=== PATIENT | female | born 1970 | race Caucasian/White ===

== ENCOUNTER → 2016-11-01 | Outpatient (CLI) | payer BC ==
[~2016-11-01] MED LIST: ADAL40KI SQ; CMD10 PO; CPR500 PO; MULT-506 PO; PRED10TA PO; WARF5TAB7 PO
[2016-11-01 13:21] LABS: BASO ABS # 0.04 K/uL (0-0.2); COMPLETE YES; EOS % 2.5 %; HEMATOCRIT 38.6 % (37-47); IG% 0.7 %; LYMPH % 40.2 %; LYMPH ABS # 1.62 K/uL (1.2-3.4); MEAN CELL VOLUME 92.6 fL (80-100); MEAN CORPUSCULAR HEMOGLOBIN 31.7 pg (25-34); MEAN CORPUSCULAR HGB CONC 34.2 g/dl (32-36); MEAN PLATELET VOLUME 10.7 fL (7.4-10.4); MONO % 14.4 %; NEUT % 41.2 %; PLATELET COUNT 254 K/uL (130-400); RED BLOOD COUNT 4.17 M/uL (4.2-5.4); WHITE BLOOD COUNT 4.03 K/uL (4.8-10.8)
[2016-11-01 14:27] LABS: ALT/SGPT 28 U/L (12-78); AST/SGOT 20 U/L (15-37); BLOOD UREA NITROGEN 12 mg/dl (7-18); CALCIUM 8.8 mg/dl (8.5-10.1); CARBON DIOXIDE 28 mmol/L (21-32); CHLORIDE 107 mmol/L (98-107); CREATININE 0.74 mg/dl (0.60-1.20); GLUCOSE 83 mg/dl (70-99); POTASSIUM 4.6 mmol/L (3.5-5.1); SODIUM 141 mmol/L (136-145)
[2016-11-01 14:30] LABS: ALB/GLOB RATIO 1.1 (0.9-2); ALKALINE PHOSPHATASE 49 U/L (45-117); C-REACTIVE PROTEIN < 0.29 mg/dl (0-0.29)
[2016-11-01 14:32] LABS: CHOLESTEROL/HDL RATIO 3.1
== END | disposition home or self-care (01) ==
LOC: C.LABMFLN 09:08
PROVIDERS: ATTEND Family Medicine
DX: D68.2 Hereditary deficiency of other clotting factors (principal); K50.019 Crohn's disease of small intestine with unspecified complications; G43.909 Migraine, unspecified, not intractable, without status migrainosus

== ENCOUNTER → 2016-11-02 | Day surgery (SDC) | payer BC ==
[2016-10-26 11:14] VITALS: BMI 22.0
[~2016-11-02] VITALS: Ht 177.8 cm; Wt 70.5 kg
[~2016-11-02] MED LIST changes: +LIDOCAINE HCL 2% 2 ML VIAL (20MG/ML) ONE; +PROPOFOL IV EMULSION 10 MG/ML 20 ML VIAL IV ONE; +SODIUM CHLORIDE 0.9% 500ML 500 ML IV ONE
[2016-11-02 11:48] VITALS: Ht 177.8 cm; Wt 70.5 kg
--- NOTE | 2016-11-02 12:57 | Endo History and Physical ---
History & Physical Date of Service: Nov 02, 2016. Chief Complaint: Crohns disease Referring Physician: Dr. Miller History of Present Illness 46 yo CF who presents for colonoscopy secondary to Crohn's Disease. Past Medical History Blood Dyscrasias, Thrombophlebitis Past Surgical History Hx Cardiac Surgery: No Hx Internal Defibrillator: No Hx Pacemaker: No Hx Abdominal Surgery: Yes ([facility]) Hx of Implantable Prosthesis: No Hx Post-Op Nausea and Vomiting: No Hx Cancer Surgery: No Hx Thoracic Surgery: No Hx Orthopedic: No Hx Urinary Tract Surgery: No Family History Colon CA, Polyp Social History Smoking Status: Current Every Day Smoker Hx Substance Use: No Hx Alcohol Use: Yes (OCCASSIONALLY) Allergies Coded Allergies: Latex2 -Systemic Allergic Response (Verified Allergy, Severe, HIVES, ) Adhesives (Verified Allergy, Unknown, BANDAIDS-RED BLISTERS, 10/26/16) Penicillins (Verified Allergy, Unknown, UNKNOWN, 10/26/16) Codeine (Verified Adverse Reaction, Unknown, NAUSEA AND VOMITING, 10/26/16) Current Medications Reported Home Medications Medications Dose Route/Sig Max Daily Dose Days Date Category Dose Instructions Humira Pen (Adalimumab) 40 Mg/0.8 Ml Kit 1 Dose SQ EVERY 2 WEEKS 07/27/16 Reported Jantoven (Warfarin Sodium) 5 Mg Tab 15 Mg PO 5XWK 07/27/16 Reported EXCEPT SUNDAYS AND MONDAY Multivitamin (Multivitamins) Tab 1 Tab PO QAM 02/16/15 Reported ONCE A DAY Coumadin (Warfarin Sod) 10 Mg Tab 10 Mg PO MONDAY AND Monday11/03/14 Reported Vital Signs Weight (Kilograms): 70.45 Height (Feet): 5 Height (Inches): 10 Date Time Temp Pulse Resp B/P Pulse Ox O2 Delivery O2 Flow Rate FiO2 11/02/16 12:02 36.9 75 20 123/69 100 Room Air Physical Exam General Appearance: WD/WN, no apparent distress Respiratory/Chest: Auscultation: breath sounds normal Cardiovascular: Heart Auscultation: RRR Abdomen: Bowel Sounds: normal Inspection & Palpation: soft, non-distended, no tenderness, guarding & rebound Assessment and Plan Assessment: 46 yo CF who presents for colonoscopy secondary to Crohn's Disease. Plan: Proceed with colonoscopy.
--- NOTE | 2016-11-02 13:29 | GI REPORT ---
Procedure Date: 11/02/2016 1:08 PM Procedure: Colonoscopy Indications: Follow-up of Crohn's disease of the small bowel Medicines: Monitored Anesthesia Care Complications: No immediate complications. Estimated Blood Loss: Estimated blood loss: none. Procedure: Pre-Anesthesia Assessment: - Prior to the procedure, a History and Physical was performed, and patient medications and allergies were reviewed. The patient's tolerance of previous anesthesia was also reviewed. The risks and benefits of the procedure and the sedation options and risks were discussed with the patient. All questions were answered, and informed consent was obtained. Prior Anticoagulants: The patient last took aspirin 8 days and Lovenox (enoxaparin) 1 day prior to the procedure. ASA Grade Assessment: II - A patient with mild systemic disease. After reviewing the risks and benefits, the patient was deemed in satisfactory condition to undergo the procedure. After I obtained informed consent, the scope was passed under direct vision. Throughout the procedure, the patient's blood pressure, pulse, and oxygen saturations were monitored continuously. The scope was introduced through the anus and advanced to the terminal ileum. The colonoscopy was performed without difficulty. The patient tolerated the procedure well. The quality of the bowel preparation was good. The terminal ileum, ileocecal valve, appendiceal orifice, and rectum were photographed. Findings: Localized inflammation, mild in severity and characterized by erosions was found in the terminal ileum. Biopsies were taken with a cold forceps for histology. Several random biopsies were obtained with cold forceps for histology in the entire colon. Impression: - Crohn's disease with ileitis. Biopsied. - Several random biopsies were obtained in the entire colon. Recommendation: - Resume previous diet. - Continue present medications. - Repeat colonoscopy for surveillance based on pathology results. - Return to primary care physician as previously scheduled. Steve Chang DO 11/02/2016 1:29:32 PM This report has been signed electronically. Note Initiated On: 11/02/2016 1:08 PM I attest to the content of the Intraoperative Record and orders documented therein, exceptions below
--- NOTE | 2016-11-02 13:30 | Discharge Instructions ---
Endoscopy Patient Instructions Date / Procedure(s) Performed Nov 02, 2016. Colonoscopy Allergy Information Coded Allergies: Latex2 -Systemic Allergic Response (Verified Allergy, Severe, HIVES, ) Adhesives (Verified Allergy, Unknown, BANDAIDS-RED BLISTERS, 10/26/16) Penicillins (Verified Allergy, Unknown, UNKNOWN, 10/26/16) Codeine (Verified Adverse Reaction, Unknown, NAUSEA AND VOMITING, 10/26/16) Discharge Date / Findings Nov 02, 2016. Crohn's ileitis s/p biopsies Random colon biopsies Medication Instructions OK to resume all medications today as prescribed Reported Home Medications Medications Dose Route/Sig Max Daily Dose Days Date Category Dose Instructions Humira Pen (Adalimumab) 40 Mg/0.8 Ml Kit 1 Dose SQ EVERY 2 WEEKS 07/27/16 Reported Jantoven (Warfarin Sodium) 5 Mg Tab 15 Mg PO 5XWK 07/27/16 Reported EXCEPT SUNDAYS AND MONDAY Multivitamin (Multivitamins) Tab 1 Tab PO QAM 02/16/15 Reported ONCE A DAY Coumadin (Warfarin Sod) 10 Mg Tab 10 Mg PO MONDAY AND Monday11/03/14 Reported Provider Instructions Activity Restrictions - No exercising or heavy lifting for 24 hours. - Do not drink alcohol the day of the procedure. - Do not drive a car or operate machinery until the day after the procedure. - Do not make any important decisions or sign important papers in 24 hours after the procedure. Following Day: - Return to full activity which may include returning to work/school. Diet Start your diet with liquids and light foods (jello, soup, juice, toast). Then eat your usual diet if not nauseated. Treatment For Common After Affects For mild abdominal pain, bloating, or excessive gas: - Rest - Eat lightly - Lie on right side Follow-Up Information Follow-up with Dr. Miller as scheduled Anesthesia Information What You Should Know You have had a procedure that required some medicine to reduce anxiety and discomfort. This treatment is called moderate sedation. After receiving the treatment, you may be sleepy, but you will be able to breathe on your own. The effects of the treatment may last for several hours. Follow these instructions along with Activity/Diet recommendations noted above: * Do NOT do anything where dizziness or clumsiness would be dangerous. * Rest quietly at home today, then you can be up and about tomorrow. * Have a responsible person stay with you the rest of today. * You may have had an I.V. today. If so, you may take the dressing off later today. Recommendations Call your doctor if: * Trouble breathing * Continuous vomiting for more than 24 hours * Temperature above 101 degrees * Severe abdominal pain or bloating * Pain not relieved by pain medicine ordered * There is increased drainage or redness from any incision * A large amount of rectal bleeding greater than 2-3 tablespoons. (If you had a polyp/s removed or have hemorrhoids, a small amount of blood - from the rectum is to be expected.) * You have any unanswered questions or concerns. IN THE EVENT OF A SERIOUS EMERGENCY, GO TO THE NEAREST EMERGENCY ROOM Your discharge instructions were prepared by provider Steve Chang. Patient Instructions Signature Page Calista Olvera Patient (or Guardian) Signature/Date: I have read and understand the instructions given to me by my caregivers. Caregiver/RN/Doctor Signature/Date: The above-named patient and/or guardian has received patient instructions on this date. + Original Patient Signature Page (only) stays with chart. Please make copy for patient.
[2016-11-02 13:52] VITALS: BP 123/78; PULSE 54; O2SAT 100
--- NOTE | 2016-11-02 15:21 | Anesthesiology Progress Note ---
Anesthesia Post Op Note Date & Time Nov 02, 2016 at 15:21 Vital Signs Pain Intensity: 0 Vital Signs Past 12 Hours Date Time Temp Pulse Resp B/P Pulse Ox O2 Delivery O2 Flow Rate FiO2 11/02/16 13:52 54 20 123/78 100 Room Air 11/02/16 13:42 55 20 114/75 100 Room Air 11/02/16 13:23 72 20 93/68 100 Room Air 11/02/16 12:02 36.9 75 20 123/69 100 Room Air Notes Mental Status: alert / awake / arousable, participated in evaluation Pt Amnestic to Procedure: Yes Nausea / Vomiting: adequately controlled Pain: adequately controlled Airway Patency, RR, SpO2: stable & adequate BP & HR: stable & adequate Hydration State: stable & adequate Anesthetic Complications: no major complications apparent
== END | disposition home or self-care (01) ==
LOC: C.GI 11:11
PROVIDERS: ATTEND Internal Medicine
DX: K50.00 Crohn's disease of small intestine without complications (principal); D75.9 Disease of blood and blood-forming organs, unspecified; I80.9 Phlebitis and thrombophlebitis of unspecified site; Z80.0 Family history of malignant neoplasm of digestive organs; Z79.01 Long term (current) use of anticoagulants; F17.210 Nicotine dependence, cigarettes, uncomplicated; Z88.0 Allergy status to penicillin; Z88.5 Allergy status to narcotic agent

== ENCOUNTER 2017-01-13 21:44 | Observation (INO) | payer BC ==
[~2017-01-13] VITALS: Ht 175.3 cm; Wt 72.4 kg
[~2017-01-13 21:44] MED LIST changes: -CPR500 PO; -LIDOCAINE HCL 2% 2 ML VIAL (20MG/ML) ONE; -PRED10TA PO; -PROPOFOL IV EMULSION 10 MG/ML 20 ML VIAL IV ONE; -SODIUM CHLORIDE 0.9% 500ML 500 ML IV ONE
[2017-01-13] MEDS ORDERED: ONDANSETRON INJ 2 MG/ML 2 ML VIAL IV STA (22:41)
[2017-01-13] MEDS ORDERED: MoRPHine SULFATE 4 MG/ML 1 ML CARP\\VIAL IV STA (22:41)
[2017-01-13 22:51] LABS: BASO % 0.4 %; BASO ABS # 0.04 K/uL (0-0.2); COMPLETE YES; EOS % 0.6 %; HEMATOCRIT 39.3 % (37-47); IG% 0.2 %; LYMPH % 23.1 %; LYMPH ABS # 2.34 K/uL (1.2-3.4); MEAN CELL VOLUME 90.8 fL (80-100); MEAN CORPUSCULAR HEMOGLOBIN 32.3 pg (25-34); MEAN CORPUSCULAR HGB CONC 35.6 g/dl (32-36); MEAN PLATELET VOLUME 10.5 fL (7.4-10.4); MONO % 6.3 %; NEUT % 69.4 %; PLATELET COUNT 225 K/uL (130-400); RED BLOOD COUNT 4.33 M/uL (4.2-5.4); WHITE BLOOD COUNT 10.11 K/uL (4.8-10.8)
[2017-01-13 23:05] LABS: INR 1.7 (0.9-1.1); PARTIAL THROMBOPLASTIN RATIO 1.1; PROTHROMBIN TIME (PATIENT) 18.7 SECONDS (9.0-12.0)
[2017-01-13 23:08] LABS: BUN/CREATININE RATIO 20.1 (10-20); CALCIUM 8.5 mg/dl (8.5-10.1); CREATININE 0.85 mg/dl (0.60-1.20); POTASSIUM 3.7 mmol/L (3.5-5.1)
[2017-01-13 23:16] LABS: URINE APPEARANCE CLEAR (CLEAR); URINE BILIRUBIN NEG (NEG); URINE COLOR DK YELLOW; URINE EPITHELIAL CELL AUTO >30 /lpf (0-5); URINE NITRITE NEG (NEG); URINE SPECIFIC GRAVITY 1.034 (1.000-1.030); UROBILINOGEN NEG (NEG)
[2017-01-13 23:20] LABS: MANUAL MICROSCOPIC REQUIRED? NO; REVIEW REQ? NO
[2017-01-14] MEDS ORDERED: MoRPHine SULFATE 4 MG/ML 1 ML CARP\\VIAL IV STA (00:15)
[2017-01-14] MEDS ORDERED: ONDANSETRON INJ 2 MG/ML 2 ML VIAL IV STA (00:15)
--- NOTE | 2017-01-14 01:16 | DIAGNOSTIC IMAGING REPORT ---
CT SCAN OF THE ABDOMEN AND PELVIS WITH IV CONTRAST CLINICAL HISTORY: Generalized abdominal pain. Reported history of Crohn's disease. COMPARISON STUDY: Abdominal CT dated 07/27/2016. TECHNIQUE: Following the IV administration of 93 cc of Optiray 320, CT scan of the abdomen and pelvis is performed from the lung bases to the proximal femora. Images are reviewed in the axial, sagittal, and coronal planes. IV contrast was administered without complication. Automated dose control exposure was utilized. CT DOSE: 333.13 mGy.cm FINDINGS: Lung bases: The heart is normal in size and without pericardial effusion. The lung bases are clear. Liver: The contrast-enhanced liver is normal in size, contour, and attenuation. There is mild central intrahepatic biliary ductal dilatation. The hepatic veins and portal veins are patent. Mild periportal edema is noted. Gallbladder: Surgically absent noting clips in the gallbladder fossa. Spleen: Normal in size and attenuation. Pancreas: Unremarkable. Adrenal glands: Unremarkable. Kidneys: The contrast enhanced kidneys are normal in size and without hydronephrosis. The kidneys enhance symmetrically. Abdominal vasculature: The abdominal aorta is normal in course and caliber. 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 There are numerous distended pelvic veins, likely representing venous collaterals. Bowel: There is wall thickening and edema seen involving the the distal/terminal ileum which extends at least 15 cm in length. The upstream small bowel is distended and fecalized, with loops measuring up to 3.6 cm. No additional thick walled bowel loops are identified. There is no evidence of fistula or abscess. The appendix is well-visualized and normal. Peritoneum: There is a small volume of free fluid in the pelvis. No intraperitoneal free air is seen. Lymphadenopathy: None. Pelvic viscera: The bladder, uterus, and adnexa are normal as visualized. Skeletal structures: No lytic or blastic lesions are seen. IMPRESSION: 1. The distal/terminal ileum is thick-walled and edematous comments extends at least 15 cm in length. Given the reported clinical history this likely represents active Crohn's disease. 2. The upstream small bowel appears distended and fluid-filled/fecalized. This may represent mild functional obstruction secondary to mucosal edema or possibly stricture. Ileus could also have this appearance. Clinical correlation will be required. No high-grade bowel obstruction is seen. 3. A small volume of free fluid in the pelvis is nonspecific and may be reactive. 4. There is no evidence of abscess or intraperitoneal free air. 5. Hepatic periportal edema is noted. 6. 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 7. Additional findings as above. Electronically signed by: Zeke Foy M.D. 01/14/2017 1:14 AM Dictated Date/Time: 01/14/2017 1:05 AM
[2017-01-14] MEDS ORDERED: SODIUM CHLORIDE 0.9% 1000ML 1,000 ML IV STA (01:25)
[2017-01-14] MEDS ORDERED: WARFARIN SOD 5 MG TAB PO ONE ×2 (01:30→14:15)
--- NOTE | 2017-01-14 01:38 | EMERGENCY ROOM VISIT NOTE ---
History Report prepared by Jaden: Clau Russo Under the Supervision of: Dr. Charan Asencio M.D. First contact with patient: 22:33 Chief Complaint: CHEST PAIN Stated Complaint: CHEST PAIN L ARM FUNNY POSSIBLE CROHNS History of Present Illness The patient is a 47 year old female who presents to the Emergency Room with complaints of persistent chest pain starting 1.5 hours ago. The pain is located in her lower chest and on both sides and wraps around to her back. She describes the pain as sharp. She also has started having upper abdominal pain which feels like her Crohn's. She gets chest pain and anxiety with her Crohn's exacerbations sometimes. She feels it is due to anxiety. She currently feels anxious. She is on Humira for Crohn's. Her bowel movements have been fairly normal recently but she states that she does not normally get abnormal bowel movements with her exacerbations. She has been feeling cold and clammy at times. She denies any urinary symptoms, vomiting, melena, hematochezia, increased leg swelling or pain. She has a blood clot in her right leg. She is currently on Coumadin. She admits to smoking. She has a family history of heart disease. Her father had a heart attack at 45 years old. She denies any other medical problems. Source of History: patient Onset: 1.5 hours ago Position: chest Quality: sharp Timing: other (persistent) Associated Symptoms: + chills, + abdominal pain, No vomiting, No melena, No hematochezia, No urinary symptoms Note: Pt reports feeling anxious. Pt denies increased leg swelling or pain. Review of Systems See HPI for pertinent positives & negatives. A total of 10 systems reviewed and were otherwise negative. Past Medical & Surgical Medical Problems: (1) Biliary and gallbladder disorder (2) Hx-Venous Thrombosis&Embolism (3) Partial small bowel obstruction (4) Tobacco Use Disorder (5) Venous Insufficiency Nos Family History Cancer Diabetes mellitus Heart disease Hypertension Social History Smoking Status: Current Every Day Smoker Alcohol Use: occasionally Drug Use: none Marital Status: Occupation Status: unemployed Current/Historical Medications Scheduled Adalimumab (Humira Pen), 1 DOSE SQ EVERY 2 WEEKS Multivitamin (Multivitamin), 1 TAB PO QAM Warfarin Sod (Coumadin), 10 MG PO MWF Warfarin Sod (Jantoven), 15 MG PO 4XWK Allergies Coded Allergies: Latex2 -Systemic Allergic Response (Verified Allergy, Severe, HIVES, ) Adhesives (Verified Allergy, Unknown, BANDAIDS-RED BLISTERS, 01/13/17) Penicillins (Verified Allergy, Unknown, UNKNOWN, 01/13/17) Codeine (Verified Adverse Reaction, Unknown, NAUSEA AND VOMITING, 01/13/17) Physical Exam Vital Signs Date Time Temp Pulse Resp B/P (MAP) Pulse Ox O2 Delivery O2 Flow Rate FiO2 01/14/17 01:31 65 01/14/17 01:06 58 14 130/85 100 Room Air 01/14/17 00:31 60 18 101/75 96 Room Air 01/13/17 22:20 53 01/13/17 21:46 36.4 59 18 114/68 100 Room Air Physical Exam Constitutional: Vital signs reviewed. Eyes: Pupils are equal round reactive to light. Conjunctiva are noninjected. ENT: Pharynx is clear without erythema or exudate. Mucous membranes are moist. Neck supple without meningeal signs. Respiratory: Clear to auscultation bilaterally. Breath sounds are equal bilaterally. Cardiovascular: Bradycardic rate, 56 and regular rhythm. No rubs or gallops. GI: Soft, nondistended with diffuse abdominal tenderness. No guarding. Bowel sounds are present. Musculoskeletal: Swelling to the right leg with some scarring. Integumentary: No cyanosis. Neurological: The patient is awake and alert. No focal deficits. Psychiatric: Anxious. Medical Decision & Procedures ER Provider Diagnostic Interpretation: Radiology results as stated below per my review and the radiologist's interpretation: CT SCAN OF THE ABDOMEN AND PELVIS WITH IV CONTRAST CLINICAL HISTORY: Generalized abdominal pain. Reported history of Crohn's disease. COMPARISON STUDY: Abdominal CT dated 07/27/2016. TECHNIQUE: Following the IV administration of 93 cc of Optiray 320, CT scan of the abdomen and pelvis is performed from the lung bases to the proximal femora. Images are reviewed in the axial, sagittal, and coronal planes. IV contrast was administered without complication. Automated dose control exposure was utilized. CT DOSE: 333.13 mGy.cm FINDINGS: Lung bases: The heart is normal in size and without pericardial effusion. The lung bases are clear. Liver: The contrast-enhanced liver is normal in size, contour, and attenuation. There is mild central intrahepatic biliary ductal dilatation. The hepatic veins and portal veins are patent. Mild periportal edema is noted. Gallbladder: Surgically absent noting clips in the gallbladder fossa. Spleen: Normal in size and attenuation. Pancreas: Unremarkable. Adrenal glands: Unremarkable. Kidneys: The contrast enhanced kidneys are normal in size and without hydronephrosis. The kidneys enhance symmetrically. Abdominal vasculature: The abdominal aorta is normal in course and caliber. 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 There are numerous distended pelvic veins, likely representing venous collaterals. Bowel: There is wall thickening and edema seen involving the the distal/terminal ileum which extends at least 15 cm in length. The upstream small bowel is distended and fecalized, with loops measuring up to 3.6 cm. No additional thick walled bowel loops are identified. There is no evidence of fistula or abscess. The appendix is well-visualized and normal. Peritoneum: There is a small volume of free fluid in the pelvis. No intraperitoneal free air is seen. Lymphadenopathy: None. Pelvic viscera: The bladder, uterus, and adnexa are normal as visualized. Skeletal structures: No lytic or blastic lesions are seen. IMPRESSION: 1. The distal/terminal ileum is thick-walled and edematous comments extends at least 15 cm in length. Given the reported clinical history this likely represents active Crohn's disease. 2. The upstream small bowel appears distended and fluid-filled/fecalized. This may represent mild functional obstruction secondary to mucosal edema or possibly stricture. Ileus could also have this appearance. Clinical correlation will be required. No high-grade bowel obstruction is seen. 3. A small volume of free fluid in the pelvis is nonspecific and may be reactive. 4. There is no evidence of abscess or intraperitoneal free air. 5. Hepatic periportal edema is noted. 6. 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 7. Additional findings as above. Electronically signed by: Zeke Foy M.D. 01/14/2017 1:14 AM Dictated Date/Time: 01/14/2017 1:05 AM Laboratory Results 01/13/17 22:35 Red Blood Count 4.33, Mean Corpuscular Volume 90.8, Mean Corpuscular Hemoglobin 32.3, Mean Corpuscular Hemoglobin Concent 35.6, Mean Platelet Volume 10.5, Neutrophils (%) (Auto) 69.4, Lymphocytes (%) (Auto) 23.1, Monocytes (%) (Auto) 6.3, Eosinophils (%) (Auto) 0.6, Basophils (%) (Auto) 0.4, Neutrophils # (Auto) 7.01, Lymphocytes # (Auto) 2.34, Monocytes # (Auto) 0.64, Eosinophils # (Auto) 0.06, Basophils # (Auto) 0.04 01/13/17 22:35 Test 01/13/17 22:35 01/13/17 22:50 01/14/17 00:30 White Blood Count 10.11 K/uL (4.8-10.8) Red Blood Count 4.33 M/uL (4.2-5.4) Hemoglobin 14.0 g/dL (12.0-16.0) Hematocrit 39.3 % (37-47) Mean Corpuscular Volume 90.8 fL (80-100) Mean Corpuscular Hemoglobin 32.3 pg (25-34) Mean Corpuscular Hemoglobin Concent 35.6 g/dl (32-36) Platelet Count 225 K/uL (130-400) Mean Platelet Volume 10.5 fL (7.4-10.4) Neutrophils (%) (Auto) 69.4 % Lymphocytes (%) (Auto) 23.1 % Monocytes (%) (Auto) 6.3 % Eosinophils (%) (Auto) 0.6 % Basophils (%) (Auto) 0.4 % Neutrophils # (Auto) 7.01 K/uL (1.4-6.5) Lymphocytes # (Auto) 2.34 K/uL (1.2-3.4) Monocytes # (Auto) 0.64 K/uL (0.11-0.59) Eosinophils # (Auto) 0.06 K/uL (0-0.5) Basophils # (Auto) 0.04 K/uL (0-0.2) RDW Standard Deviation 44.8 fL (36.4-46.3) RDW Coefficient of Variation 13.4 % (11.5-14.5) Immature Granulocyte % (Auto) 0.2 % Immature Granulocyte # (Auto) 0.02 K/uL (0.00-0.02) Prothrombin Time 18.7 SECONDS (9.0-12.0) Prothromb Time International Ratio 1.7 (0.9-1.1) Activated Partial Thromboplast Time 28.9 SECONDS (21.0-31.0) Partial Thromboplastin Ratio 1.1 D-Dimer 250 ug/L FEU (0-500) Anion Gap 9.0 mmol/L (3-11) Est Creatinine Clear Calc Drug Dose 87.4 ml/min Estimated GFR () 95.9 Estimated GFR (Non- 82.8 BUN/Creatinine Ratio 20.1 (10-20) Calcium Level 8.5 mg/dl (8.5-10.1) Total Bilirubin 0.6 mg/dl (0.2-1) Direct Bilirubin 0.2 mg/dl (0-0.2) Aspartate Amino Transf (AST/SGOT) 33 U/L (15-37) Alanine Aminotransferase (ALT/SGPT) 29 U/L (12-78) Alkaline Phosphatase 55 U/L (45-117) Total Protein 7.3 gm/dl (6.4-8.2) Albumin 3.8 gm/dl (3.4-5.0) Lipase 164 U/L (73-393) Urine Color DK YELLOW Urine Appearance CLEAR (CLEAR) Urine pH 7.0 (4.5-7.5) Urine Specific [place] 1.034 (1.000-1.030) Urine Protein NEG (NEG) Urine Glucose (UA) NEG (NEG) Urine Ketones TRACE (NEG) Urine Occult Blood NEG (NEG) Urine Nitrite NEG (NEG) Urine Bilirubin NEG (NEG) Urine Urobilinogen NEG (NEG) Urine Leukocyte Esterase TRACE (NEG) Urine WBC (Auto) 1-5 /hpf (0-5) Urine RBC (Auto) 0-4 /hpf (0-4) Urine Hyaline Casts (Auto) 1-5 /lpf (0-5) Urine Epithelial Cells (Auto) >30 /lpf (0-5) Urine Bacteria (Auto) NEG (NEG) Urine Test NEG (NEG) Bedside Troponin I 0.000 ng/ml (0-0.045) Laboratory results as reviewed by me. Medications Administered Medications (Trade) Dose Ordered Sig/Hussain Route Start Time Stop Time Status Last Admin Dose Admin Morphine Sulfate (MoRPHine SULFATE INJ) 4 mg ONE STAT IV 01/13/17 22:41 01/13/17 22:42 DC 01/13/17 23:18 4 MG Ondansetron HCl (Zofran Inj) 4 mg NOW STAT IV 01/13/17 22:41 01/13/17 22:42 DC 01/13/17 23:18 4 MG Morphine Sulfate (MoRPHine SULFATE INJ) 4 mg NOW STAT IV 01/14/17 00:15 01/14/17 00:16 DC 01/14/17 00:36 4 MG Ondansetron HCl (Zofran Inj) 4 mg NOW STAT IV 01/14/17 00:15 01/14/17 00:16 DC 01/14/17 00:36 4 MG ECG Indication: chest pain Rate (beats per minute): 56 Rhythm: sinus bradycardia Findings: no acute ischemic change, no ectopy ED Course 2236: The patient was evaluated in room C5. A complete history and physical exam was performed. 2241: Zofran Inj 4 mg IV, Morphine Sulfate 4 mg IV. 2330: I reevaluated the patient. Her chest discomfort has resolved, but she still has abdominal pain. I discussed her INR and her blood work with her. 0010: I reevaluated the patient. She has recurrent abdominal pain. 0015: Zofran Inj 4 mg IV, Morphine Sulfate 4 mg IV. 0123: I discussed the patient's case with Dr. Gu, [facility] [place]. The patient will be evaluated for further management. 0128: I reevaluated the patient. I discussed the results and treatment plan with her. She verbalized understanding and agreement. She will be evaluated for further management. Medical Decision This is a 47-year-old female who presents with chest pain and abdominal pain. Differential diagnosis includes anxiety, pleurisy, AK, pulmonary embolism, Crohn 's exacerbation, obstruction. I did perform a limited focused review of portions of the patient's old chart on the electronic medical record. The patient has had no recent pertinent visits to this hospital. Medication Reconciliation: I attest that I have personally reviewed the patient' s current medication list. Blood Pressure Screening: Patient was found to have normal blood pressure on screening and does not require follow-up. I did evaluate the patient as noted above. IV access was established. The patient was placed on a continuous library monitor. I did order and personally review the patient's 12-lead EKG as described above. I did order and review the patient's blood work as noted in the electronic medical record. Troponin 2 is negative. Her white blood cell count is not elevated. Her INR is subtherapeutic but her d-dimer is negative. I did order a CT of the abdomen and pelvis. I did review the images myself as well as the radiology report as described above. She does appear to have signs of Crohn's disease with some possible functional obstruction. She did receive multiple doses of Zofran and morphine IV. I also gave her normal saline IV. I did discuss the test results with the patient. She will be hospitalized for further care and evaluation. I did discuss the case with the hospitalist and casework supervisor. Consults Time Called: 0120 Consulting Physician: Dr. Gu [facility] [place] - hospitalist Returned Call: [phone] I discussed the patient's case with him. The patient will be evaluated for further management. Impression Primary Impression: Exacerbation of Crohn's disease Additional Impressions: Subtherapeutic international normalized ratio (INR) Acute chest pain Scribe Attestation The scribe's documentation has been prepared under my direct and personally reviewed by me in its entirety. I confirm that the note above accurately reflects all work, treatment, procedures, and medical decision making performed by me. Departure Information Dispostion Being Evaluated By Hospitalist Referrals Zeke Miller M.D. (PCP) Patient Instructions My [facility] Problem Qualifiers Primary Impression: Exacerbation of Crohn's disease Digestive disease complication type: unspecified complication Qualified Codes : K50.919 - Crohn's disease, unspecified, with unspecified complications
[2017-01-14] MEDS ORDERED: CIPROFLOXACIN 400MG / 200ML D5W IV STA (02:18)
[2017-01-14] MEDS ORDERED: MoRPHine SULFATE 2 MG/ML CARP IV PRN (02:30)
[2017-01-14] MEDS ORDERED: ACETAMINOPHEN IV 100 ML IV PRN (02:30)
[2017-01-14] MEDS ORDERED: MoRPHine SULFATE 4 MG/ML 1 ML CARP\\VIAL IV PRN (02:30)
[2017-01-14] MEDS ORDERED: ONDANSETRON INJ 2 MG/ML 2 ML VIAL IV PRN (02:30)
[2017-01-14 02:56] VITALS: BP 95/67; PULSE 57; TEMP 36.4; O2SAT 99; Ht 175.3 cm; Wt 72.4 kg
[2017-01-14] MEDS: NSS + 20MEQ KCL 1000ML 1,000 ML IV SCH ×3 (03:17→23:13)
[2017-01-14] MEDS: CIPROFLOXACIN / D5W 400 MG in PREMIXED IN D5W 200 ML IV SCH ×2 (03:17→14:42)
[2017-01-14] MEDS ORDERED: IV FLUIDS COMPLETED PRN (04:00)
[2017-01-14] MEDS: METRONIDAZOLE / NSS 500 MG in PREMIXED NSS 100 ML IV SCH ×2 (04:06→11:23)
--- NOTE | 2017-01-14 04:45 | History and Physical ---
History & Physical Date & Time of Service: Jan 14, 2017 at 04:45 Chief Complaint: Crohn's Exacerbation Primary Care Physician: Zeke Miller M.D. History of Present Illness Source: patient The patient is a 47-year-old female who presents to the emergency department with chest pain that begins in her lower chest and wraps around on both sides toward her back, that began about 1-1/2 hours prior to arrival. She also notes upper abdominal pain that she thinks is related to her Crohn's. She presently feels anxious, and commonly gets this type of chest discomfort when she has a Crohn's exacerbation. Her bowel movements are not uncommonly normal even when she has exacerbation. She has history of blood clots in her right leg for which she is on Coumadin. She does report feeling cold and clammy at times, but has not been lightheaded or dizzy. She presently is on Humira for Crohn's. She has not had any change in dietary habits or in physical activity. She has not had any recent travel or any sick exposures. Past Medical/Surgical History Medical Problems: (1) Biliary and gallbladder disorder Status: Chronic Family History Cancer Diabetes mellitus Heart disease Hypertension Social History Smoking Status: Current Every Day Smoker Smokeless Tobacco Use: Yes Drug Use: none Marital Status: Housing status: lives with family Occupational Status: unemployed Multi-Drug Resistant Organisms History of MDRO: No Allergies Coded Allergies: Latex2 -Systemic Allergic Response (Verified Allergy, Severe, HIVES, ) Adhesives (Verified Allergy, Unknown, BANDAIDS-RED BLISTERS, 01/13/17) Penicillins (Verified Allergy, Unknown, UNKNOWN, 01/13/17) Codeine (Verified Adverse Reaction, Unknown, NAUSEA AND VOMITING, 01/13/17) Home Medications Scheduled Adalimumab (Humira Pen), 1 DOSE SQ EVERY 2 WEEKS Multivitamin (Multivitamin), 1 TAB PO QAM Warfarin Sod (Coumadin), 10 MG PO MWF Warfarin Sod (Jantoven), 15 MG PO 4XWK Review of Systems The patient denies palpitations, cough, lower extremity swelling, vision change , hearing change, sore throat, fevers, chills, sweats, weight change, fatigue, nausea, vomiting, blood in urine or stool, dysuria, urinary frequency or urgency, lightheadedness, dizziness, headache, memory loss, rash, abnormal bruising or bleeding, imbalance, focal or generalized weakness, numbness or tingling in arms or legs, arthralgias or myalgias, night sweats, or allergy symptoms. The review of systems is otherwise negative other than for that already noted above, and at least 10 systems have been reviewed. Physical Exam Vital Signs Date Time Temp Pulse Resp B/P (MAP) Pulse Ox O2 Delivery O2 Flow Rate FiO2 01/14/17 02:56 36.4 57 18 95/67 99 Room Air 01/14/17 02:42 56 16 103/68 98 01/14/17 01:31 65 01/14/17 01:06 58 14 130/85 100 Room Air 01/14/17 00:31 60 18 101/75 96 Room Air 01/13/17 22:20 53 01/13/17 21:46 36.4 59 18 114/68 100 Room Air The patient is awake, well-developed and adequately nourished, alert and oriented 3, normocephalic and atraumatic, lying in bed and in no acute distress. HEENT--PERRL, EOMI, mucous membranes and oropharynx dry. Neck--supple, no JVD or bruits, thyroid normal, trachea midline, no adenopathy. Heart--normal S1 and S2, no extra beats, no murmurs, rubs or gallops. Lungs--clear bilaterally with good air movement, no respiratory distress, no accessory muscle use. Abdomen--normal bowel sounds and soft, tender in epigastric and extending laterally both sides, nondistended, no hernias or masses, no organomegaly. Extremities--no cyanosis, clubbing or edema. There are good distal pulses b/l. Dermatologic--normal skin turgor, normal color, warm and dry, no abnormal lymph nodes, no rash. Neurologic--cranial nerves II through XII grossly intact, motor and sensory examination normal. Rheumatologic--normal range of motion, nontender, muscles and joints. Psychiatric--normal affect. Diagnostics Laboratory Results Results Past 24 Hours Test 01/13/17 22:35 01/13/17 22:46 01/13/17 22:50 01/14/17 00:30 Range/Units White Blood Count 10.11 4.8-10.8 K/uL Red Blood Count 4.33 4.2-5.4 M/uL Hemoglobin 14.0 12.0-16.0 g/dL Hematocrit 39.3 37-47 % Mean Corpuscular Volume 90.8 80-100 fL Mean Corpuscular Hemoglobin 32.3 25-34 pg Mean Corpuscular Hemoglobin Concent 35.6 32-36 g/dl Platelet Count 225 130-400 K/uL Mean Platelet Volume 10.5 7.4-10.4 fL Neutrophils (%) (Auto) 69.4 % Lymphocytes (%) (Auto) 23.1 % Monocytes (%) (Auto) 6.3 % Eosinophils (%) (Auto) 0.6 % Basophils (%) (Auto) 0.4 % Neutrophils # (Auto) 7.01 1.4-6.5 K/uL Lymphocytes # (Auto) 2.34 1.2-3.4 K/uL Monocytes # (Auto) 0.64 0.11-0.59 K/uL Eosinophils # (Auto) 0.06 0-0.5 K/uL Basophils # (Auto) 0.04 0-0.2 K/uL RDW Standard Deviation 44.8 36.4-46.3 fL RDW Coefficient of Variation 13.4 11.5-14.5 % Immature Granulocyte % (Auto) 0.2 % Immature Granulocyte # (Auto) 0.02 0.00-0.02 K/uL Prothrombin Time 18.7 9.0-12.0 SECONDS Prothromb Time International Ratio 1.7 0.9-1.1 Activated Partial Thromboplast Time 28.9 21.0-31.0 SECONDS Partial Thromboplastin Ratio 1.1 D-Dimer 250 0-500 ug/L FEU Sodium Level 141 136-145 mmol/L Potassium Level 3.7 3.5-5.1 mmol/L Chloride Level 108 98-107 mmol/L Carbon Dioxide Level 24 21-32 mmol/L Anion Gap 9.0 3-11 mmol/L Blood Urea Nitrogen 17 7-18 mg/dl Creatinine 0.85 0.60-1.20 mg/dl Est Creatinine Clear Calc Drug Dose 87.4 ml/min Estimated GFR () 95.9 Estimated GFR (Non- 82.8 BUN/Creatinine Ratio 20.1 10-20 Random Glucose 97 70-99 mg/dl Calcium Level 8.5 8.5-10.1 mg/dl Total Bilirubin 0.6 0.2-1 mg/dl Direct Bilirubin 0.2 0-0.2 mg/dl Aspartate Amino Transf (AST/SGOT) 33 15-37 U/L Alanine Aminotransferase (ALT/SGPT) 29 12-78 U/L Alkaline Phosphatase 55 45-117 U/L Total Protein 7.3 6.4-8.2 gm/dl Albumin 3.8 3.4-5.0 gm/dl Lipase 164 73-393 U/L Bedside Troponin I 0.000 0.000 0-0.045 ng/ml Urine Color DK YELLOW Urine Appearance CLEAR CLEAR Urine pH 7.0 4.5-7.5 Urine Specific [place] 1.034 1.000-1.030 Urine Protein NEG NEG Urine Glucose (UA) NEG NEG Urine Ketones TRACE NEG Urine Occult Blood NEG NEG Urine Nitrite NEG NEG Urine Bilirubin NEG NEG Urine Urobilinogen NEG NEG Urine Leukocyte Esterase TRACE NEG Urine WBC (Auto) 1-5 0-5 /hpf Urine RBC (Auto) 0-4 0-4 /hpf Urine Hyaline Casts (Auto) 1-5 0-5 /lpf Urine Epithelial Cells (Auto) >30 0-5 /lpf Urine Bacteria (Auto) NEG NEG Urine Test NEG NEG Diagnostic Radiology Patient Name: JAYDE CHAPPELL Unit Number: [id number] Dictated: 01/14/17104 Transcribed: 01/14/17104 EV Printed Date/Time: [~ rep prt dt]/[~ rep prt tm] [~ rep ct labl] - [~ rep ct ivnm] [facility] [place] [address] Dictated: 01/14/17104 Transcribed: 01/14/17104 EV Printed Date/Time: [~ rep prt dt]/[~ rep prt tm] [~ rep ct labl] - [~ rep ct ivnm] CT SCAN OF THE ABDOMEN AND PELVIS WITH IV CONTRAST CLINICAL HISTORY: Generalized abdominal pain. Reported history of Crohn's disease. COMPARISON STUDY: Abdominal CT dated 07/27/2016. TECHNIQUE: Following the IV administration of 93 cc of Optiray 320, CT scan of the abdomen and pelvis is performed from the lung bases to the proximal femora. Images are reviewed in the axial, sagittal, and coronal planes. IV contrast was administered without complication. Automated dose control exposure was utilized. CT DOSE: 333.13 mGy.cm FINDINGS: Lung bases: The heart is normal in size and without pericardial effusion. The lung bases are clear. Liver: The contrast-enhanced liver is normal in size, contour, and attenuation. There is mild central intrahepatic biliary ductal dilatation. The hepatic veins and portal veins are patent. Mild periportal edema is noted. Gallbladder: Surgically absent noting clips in the gallbladder fossa. Spleen: Normal in size and attenuation. Pancreas: Unremarkable. Adrenal glands: Unremarkable. Kidneys: The contrast enhanced kidneys are normal in size and without hydronephrosis. The kidneys enhance symmetrically. Abdominal vasculature: The abdominal aorta is normal in course and caliber. 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 There are numerous distended pelvic veins, likely representing venous collaterals. Bowel: There is wall thickening and edema seen involving the the distal/terminal ileum which extends at least 15 cm in length. The upstream small bowel is distended and fecalized, with loops measuring up to 3.6 cm. No additional thick walled bowel loops are identified. There is no evidence of fistula or abscess. The appendix is well-visualized and normal. Peritoneum: There is a small volume of free fluid in the pelvis. No intraperitoneal free air is seen. Lymphadenopathy: None. Pelvic viscera: The bladder, uterus, and adnexa are normal as visualized. Skeletal structures: No lytic or blastic lesions are seen. IMPRESSION: 1. The distal/terminal ileum is thick-walled and edematous comments extends at least 15 cm in length. Given the reported clinical history this likely represents active Crohn's disease. 2. The upstream small bowel appears distended and fluid-filled/fecalized. This may represent mild functional obstruction secondary to mucosal edema or possibly stricture. Ileus could also have this appearance. Clinical correlation will be required. No high-grade bowel obstruction is seen. 3. A small volume of free fluid in the pelvis is nonspecific and may be reactive. 4. There is no evidence of abscess or intraperitoneal free air. 5. Hepatic periportal edema is noted. 6. 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 7. Additional findings as above. Electronically signed by: Zeke Foy M.D. 01/14/2017 1:14 AM Dictated Date/Time: 01/14/2017 1:05 AM The status of this report is Signed. Draft = Not yet reviewed or approved by Radiologist. Signed = Reviewed and approved by Radiologist. <AttendingPhy></AttendingPhy> <FamilyPhy>Zeke Miller M.D.</FamilyPhy> < PrimaryPhy>Zeke Miller M.D.</PrimaryPhy> <UnitNumber>[id number]</UnitNumber> < VisitNumber>[id number]</VisitNumber> <PatientName>JAYDE CHAPPELL</ PatientName> <DateOfBirth>1970</DateOfBirth> <Location>[facility]</Location> < ServiceDate>01/13/17</ServiceDate> <MNE>ESINDI</MNE> <OrderingPhy>Charan Asencio MD</OrderingPhy> <OrderingPhyMNE>f rep ord dr de la cruz</OrderingPhyMNE> < DictatingPhyMNE>f rep dict dr de la cruz</DictatingPhyMNE> <CCListMNE>f rep ct jono</ CCListMNE> <AdmittingPhyMNE>f pt admit dr de la cruz</AdmittingPhyMNE> <AttendingPhyMNE >f pt attend dr de la cruz</AttendingPhyMNE> <ConsultingPhyMNE>f pt consult dr de la cruz</ConsultingPhyMNE> <FamilyPhyMNE>f pt fam dr de la cruz</FamilyPhyMNE> <OtherPhyMNE>f pt other dr de la cruz</OtherPhyMNE> < PrimaryPhyMNE>f pt prim care dr de la cruz</PrimaryPhyMNE> <ReferringPhyMNE>f pt referring dr de la cruz</ReferringPhyMNE> Impression Assessment and Plan Crohn's exacerbation--the patient be admitted to the medical floor. She'll be placed on IV fluids, Cipro and Flagyl IV, Zofran IV, morphine IV and Protonix IV. She reports that she has not and on steroids during flareups in the past. CT scan does show a 15 cm long area suggested ileitis associated with her Crohn' s. 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 Present INR is 1.7. Continue warfarin as outpatient and follow serial INRs. Level of Care Med/Surg Advanced Directives Existing Advance Directive: No Existing Living Will: No Existing Power of Marketing Operations Manager: No Resuscitation Status FULL RESUSCITATION VTE Prophylaxis VTE Risk Assessment Done? Y/N: Yes Risk Level: Moderate Given or contraindicated: Warfarin (Coumadin)
[2017-01-14 07:50] VITALS: BP 92/62; PULSE 60; TEMP 36.5; O2SAT 97
[2017-01-14] MEDS ORDERED: PANTOprazole INJ 40 MG in SYRINGE 0 ML IV SCH (11:00)
--- NOTE | 2017-01-14 13:47 | Medical Consult ---
Consultation Note Date of Service Jan 14, 2017. Consultation Note Reason for consult: Flare of Crohn's disease Source: patient, med records HPI: 47 yo F with PMH sig for ileal Crohn's, maintained on Humira, with imaging in July showing mild inflammation in ileum and last surveillance cscopy in October showing only mild inflammation in ileum, with reported therapeutic Humira levels earlier this year, now admit with symptoms of Crohn's flare. Pt reports fairly abrupt onset of diffuse abdominal pain, nausea, abdominal distention, and subjective fever that began yesterday morning. She did not have vomiting. She had a normal bowel movement yesterday morning. She also reports chest discomfort, which she associated with a Crohn's flare and states that she thinks is related to anxiety. On admission, she underwent CT, which showed marked ileal thickening and fecalization of distal small bowel. She was treated only with antibiotics overnight; she was not given steroids. This morning, she has no abd distention, she is tolerating small sips of clears, she has mild pain, and she has not had flatus. Of note, she also has a h/o DVT and IVC thrombosis (secondary to ??) for which she is maintained on coumadin. Past Medical/Surgical History Medical Problems: (1) Biliary and gallbladder disorder Status: Chronic Family History Cancer Diabetes mellitus Heart disease Hypertension Social History Smoking Status: Current Every Day Smoker Smokeless Tobacco Use: Yes Drug Use: none Marital Status: Housing status: lives with family Occupational Status: unemployed Multi-Drug Resistant Organisms History of MDRO: No Allergies Coded Allergies: Latex2 -Systemic Allergic Response (Verified Allergy, Severe, HIVES, ) Adhesives (Verified Allergy, Unknown, BANDAIDS-RED BLISTERS, 01/13/17) Penicillins (Verified Allergy, Unknown, UNKNOWN, 01/13/17) Codeine (Verified Adverse Reaction, Unknown, NAUSEA AND VOMITING, 01/13/17) Home Medications Scheduled Adalimumab (Humira Pen), 1 DOSE SQ EVERY 2 WEEKS Multivitamin (Multivitamin), 1 TAB PO QAM Warfarin Sod (Coumadin), 10 MG PO MWF Warfarin Sod (Jantoven), 15 MG PO 4XWK Review of Systems The patient denies palpitations, cough, lower extremity swelling, vision change , hearing change, sore throat, fevers, chills, sweats, weight change, fatigue, nausea, vomiting, blood in urine or stool, dysuria, urinary frequency or urgency, lightheadedness, dizziness, headache, memory loss, rash, abnormal bruising or bleeding, imbalance, focal or generalized weakness, numbness or tingling in arms or legs, arthralgias or myalgias, night sweats, or allergy symptoms. The review of systems is otherwise negative other than for that already noted above, and at least 10 systems have been reviewed. Physical Ex - H&P Physical Exam Vital Signs Date Time Temp Pulse Resp B/P (MAP) Pulse Ox O2 Delivery O2 Flow Rate FiO2 01/14/17 08:00 Room Air 01/14/17 07:50 36.5 60 18 92/62 (72) 97 Room Air 01/14/17 02:56 36.4 57 18 95/67 99 Room Air 01/14/17 02:42 56 16 103/68 98 01/14/17 01:31 65 01/14/17 01:06 58 14 130/85 100 Room Air 01/14/17 00:31 60 18 101/75 96 Room Air 01/13/17 22:20 53 01/13/17 21:46 36.4 59 18 114/68 100 Room Air Appears comfortable - she is sitting upright in bed, talking on the phone when I enter the room. She has consumed about 1/3rd of her lunch tray. HEENT--PERRL, EOMI, mucous membranes and oropharynx dry. Neck--supple, no JVD or bruits, thyroid normal, trachea midline, no adenopathy. Heart--normal S1 and S2, no extra beats, no murmurs, rubs or gallops. Lungs--clear bilaterally with good air movement, no respiratory distress, no accessory muscle use. Abdomen--normal bowel sounds and soft, tender in epigastric and extending laterally both sides, nondistended, no hernias or masses, no organomegaly. Extremities--no cyanosis, clubbing or edema. There are good distal pulses b/l. Dermatologic--normal skin turgor, normal color, warm and dry, no abnormal lymph nodes, no rash. Neurologic--cranial nerves II through XII grossly intact, motor and sensory examination normal. Rheumatologic--normal range of motion, nontender, muscles and joints. Psychiatric--normal affect. Diagnostics - H&P Diagnostics Laboratory Results Last 24 Hours Test 01/13/17 22:35 01/13/17 22:46 01/13/17 22:50 01/14/17 00:30 White Blood Count 10.11 K/uL Red Blood Count 4.33 M/uL Hemoglobin 14.0 g/dL Hematocrit 39.3 % Mean Corpuscular Volume 90.8 fL Mean Corpuscular Hemoglobin 32.3 pg Mean Corpuscular Hemoglobin Concent 35.6 g/dl Platelet Count 225 K/uL Mean Platelet Volume 10.5 fL Neutrophils (%) (Auto) 69.4 % Lymphocytes (%) (Auto) 23.1 % Monocytes (%) (Auto) 6.3 % Eosinophils (%) (Auto) 0.6 % Basophils (%) (Auto) 0.4 % Neutrophils # (Auto) 7.01 K/uL Lymphocytes # (Auto) 2.34 K/uL Monocytes # (Auto) 0.64 K/uL Eosinophils # (Auto) 0.06 K/uL Basophils # (Auto) 0.04 K/uL RDW Standard Deviation 44.8 fL RDW Coefficient of Variation 13.4 % Immature Granulocyte % (Auto) 0.2 % Immature Granulocyte # (Auto) 0.02 K/uL Prothrombin Time 18.7 SECONDS Prothromb Time International Ratio 1.7 Activated Partial Thromboplast Time 28.9 SECONDS Partial Thromboplastin Ratio 1.1 D-Dimer 250 ug/L FEU Sodium Level 141 mmol/L Potassium Level 3.7 mmol/L Chloride Level 108 mmol/L Carbon Dioxide Level 24 mmol/L Anion Gap 9.0 mmol/L Blood Urea Nitrogen 17 mg/dl Creatinine 0.85 mg/dl Est Creatinine Clear Calc Drug Dose 87.4 ml/min Estimated GFR () 95.9 Estimated GFR (Non- 82.8 BUN/Creatinine Ratio 20.1 Random Glucose 97 mg/dl Calcium Level 8.5 mg/dl Total Bilirubin 0.6 mg/dl Direct Bilirubin 0.2 mg/dl Aspartate Amino Transf (AST/SGOT) 33 U/L Alanine Aminotransferase (ALT/SGPT) 29 U/L Alkaline Phosphatase 55 U/L Total Protein 7.3 gm/dl Albumin 3.8 gm/dl Lipase 164 U/L Bedside Troponin I 0.000 ng/ml 0.000 ng/ml Urine Color DK YELLOW Urine Appearance CLEAR Urine pH 7.0 Urine Specific [place] 1.034 Urine Protein NEG Urine Glucose (UA) NEG Urine Ketones TRACE Urine Occult Blood NEG Urine Nitrite NEG Urine Bilirubin NEG Urine Urobilinogen NEG Urine Leukocyte Esterase TRACE Urine WBC (Auto) 1-5 /hpf Urine RBC (Auto) 0-4 /hpf Urine Hyaline Casts (Auto) 1-5 /lpf Urine Epithelial Cells (Auto) >30 /lpf Urine Bacteria (Auto) NEG Urine Test NEG Results Past [address] SCAN OF THE ABDOMEN AND PELVIS WITH IV CONTRAST CLINICAL HISTORY: Generalized abdominal pain. Reported history of Crohn's disease. COMPARISON STUDY: Abdominal CT dated 07/27/2016. TECHNIQUE: Following the IV administration of 93 cc of Optiray 320, CT scan of the abdomen and pelvis is performed from the lung bases to the proximal femora. Images are reviewed in the axial, sagittal, and coronal planes. IV contrast was administered without complication. Automated dose control exposure was utilized. CT DOSE: 333.13 mGy.cm FINDINGS: Lung bases: The heart is normal in size and without pericardial effusion. The lung bases are clear. Liver: The contrast-enhanced liver is normal in size, contour, and attenuation. There is mild central intrahepatic biliary ductal dilatation. The hepatic veins and portal veins are patent. Mild periportal edema is noted. Gallbladder: Surgically absent noting clips in the gallbladder fossa. Spleen: Normal in size and attenuation. Pancreas: Unremarkable. Adrenal glands: Unremarkable. Kidneys: The contrast enhanced kidneys are normal in size and without hydronephrosis. The kidneys enhance symmetrically. Abdominal vasculature: The abdominal aorta is normal in course and caliber. 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 There are numerous distended pelvic veins, likely representing venous collaterals. Bowel: There is wall thickening and edema seen involving the the distal/terminal ileum which extends at least 15 cm in length. The upstream small bowel is distended and fecalized, with loops measuring up to 3.6 cm. No additional thick walled bowel loops are identified. There is no evidence of fistula or abscess. The appendix is well-visualized and normal. Peritoneum: There is a small volume of free fluid in the pelvis. No intraperitoneal free air is seen. Lymphadenopathy: None. Pelvic viscera: The bladder, uterus, and adnexa are normal as visualized. Skeletal structures: No lytic or blastic lesions are seen. IMPRESSION: 1. The distal/terminal ileum is thick-walled and edematous comments extends at least 15 cm in length. Given the reported clinical history this likely represents active Crohn's disease. 2. The upstream small bowel appears distended and fluid-filled/fecalized. This may represent mild functional obstruction secondary to mucosal edema or possibly stricture. Ileus could also have this appearance. Clinical correlation will be required. No high-grade bowel obstruction is seen. 3. A small volume of free fluid in the pelvis is nonspecific and may be reactive. 4. There is no evidence of abscess or intraperitoneal free air. 5. Hepatic periportal edema is noted. 6. 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 7. Additional findings as above. Impression Assessment and Plan H/o Crohn's ileitis on now admitted with abdominal pain, CT showing marked terminal ileitis - Presumably, she has a Crohn's flare, although the abrupt onset of her symptoms and marked progression of her disease when compared to her cscopy in October is somewhat atypical. She has a h/o IVC thrombosis, and I wonder if it may be possible that her ileitis is related to vascular congestion related to this. - Will check CRP and stool studies. Given her ileitis, would begin steroids - will begin solumedrol 20 q8 hours. Given findings of fecalization on imaging, will continue cipro as adjunct therapy for Crohn's and to treat the possibility of bacterial overgrowth. Diet as tolerated. Will defer the need for MRV, or therapeutic drug monitoring, to primary solution lead, who will resume care on Monday.
[2017-01-14] MEDS ORDERED: ACETAMINOPHEN 500 MG TAB PO PRN (14:00)
--- NOTE | 2017-01-14 14:11 | Progress Note ---
Progress Note Date of Service Jan 14, 2017. Progress Note seen this AM in f/u from early AM admit feeling better already. wonders about PO intake. notes that this felt like prior flare but is getting better faster. discussed care. discussed pending GI consult (had not yet seen at the time i saw her, input now noted and appreciated) ROS otherwise negative except for as above crohn's flare - med management, abx/steroids/pain control. doing better, clear liquids, follow dvt proph - coumadin (sl low - continue coumadin and follow) chronic DVT - coumadin as above (additional dose since INR sl low, although abx likely will have INR rise some too so watch closely)
[2017-01-14] MEDS: METHYLPREDNISOLONE IV 20 MG in SYRINGE 0 ML IV SCH ×2 (14:42→23:10)
[2017-01-14 15:05] VITALS: BP 92/58; PULSE 61; TEMP 37.1; O2SAT 95
[2017-01-14] MEDS ORDERED: WARFARIN SOD 7.5 MG TAB PO SCH (16:00)
[2017-01-14 22:57] VITALS: BP_SYST 102; BP_SYST 92; BP_DIAS 47; BP_DIAS 65; PULSE 64; TEMP 36.8; O2SAT 96
[2017-01-15] MEDS: CIPROFLOXACIN / D5W 400 MG in PREMIXED IN D5W 200 ML IV SCH (03:12)
[2017-01-15] MEDS: METHYLPREDNISOLONE IV 20 MG in SYRINGE 0 ML IV SCH (06:07)
[2017-01-15 06:35] VITALS: BP 98/64; PULSE 54; TEMP 36.5; O2SAT 97
[2017-01-15 07:46] LABS: INR 3.6 (0.9-1.1); PROTHROMBIN TIME (PATIENT) 40.2 SECONDS (9.0-12.0)
[2017-01-15] MEDS ORDERED: PANTOprazole SOD 40 MG TAB PO SCH (08:00)
[2017-01-15] MEDS: NSS + 20MEQ KCL 1000ML 1,000 ML IV SCH (09:51)
[2017-01-15] MEDS ORDERED: PRED10TA PO (10:18)
[2017-01-15] MEDS ORDERED: CPR500 PO ×2 (10:18→10:39)
--- NOTE | 2017-01-15 10:24 | Discharge Instructions ---
Discharge Instructions Date of Service Jan 15, 2017. Admission Reason for Admission: Crohn's Exacerbation Discharge Discharge Diagnosis / Problem: crohn's flare Discharge Goals Goal(s): Decrease discomfort, Diagnostic testing, Therapeutic intervention Activity Recommendations Activity Limitations: resume your previous activity . Instructions / Follow-Up Instructions / Follow-Up crohn's flare -improving -finish out a course of cipro as an antibiotic - GI recommends a 10 day course. your next dose will be in the evening today (01/15/17) -we'll do a tapering course of prednisone, as quickly as you got better, they 'll hopefully be able to go more quickly than the typical 40mg daily followed by a 10mg reduction once a week over a month, but we'll defer to gastroenterology judgement on that - for now take 40mg daily until you see GI this coming week, and they can direct the taper ongoing based on how you're doing (your next dose of steroids will be tomorrow morning, 01/16/17) clotting/coumadin -your INR yesterday was 1.7, today it's 3.6, fortunately even when your INR was low, a lab test called a d-dimer (that doesn't specifically say if you have clots, but does a nice job of assessing the risk of clotting) was normal (250, upper normal is 500) - so while your coumadin has been a bit unwieldy to control , it's not likely that you're having any active clotting events in the here-and- now -have a repeat INR tomorrow as previously scheduled, continue your current dosing of coumadin as guided by Dr Miller -antibiotics can certainly bump your INR higher, so it's quite likely that Dr Miller will need to be checking an INR several times this week Current Hospital Diet Patient's current hospital diet: Low Fiber Diet Discharge Diet Recommended Diet: Low Fiber Diet (until seen by GI this week, then as long as they approve, you can resume your regular diet) Pending Studies Studies pending at discharge: no Laboratory Results Lipid Panel Test 11/01/16 07:30 Range/Units Triglycerides Level 136 0-150 mg/dl Cholesterol Level 179 0-200 mg/dl HDL Cholesterol 57 mg/dl Cholesterol/HDL Ratio 3.1 LDL Cholesterol, Calculated 95 mg/dl Medical Emergencies . Who to Call and When: Medical Emergencies: If at any time you feel your situation is an emergency, please call 911 immediately. . Non-Emergent Contact Non-Emergency issues call your: Primary Care Provider, [employer] [facility] . . "Provider Documentation" section prepared by Alan Roberts. . VTE Core Measure Inpt VTE Proph given/why not?: Warfarin (Coumadin)
[2017-01-15 10:51] VITALS: BP 98/64; PULSE 54; TEMP 36.5; O2SAT 97
--- NOTE | 2017-01-15 16:23 | Discharge Summary ---
Discharge Summary Date of Service Jan 15, 2017. Discharge Summary Admission Date: Jan 14, 2017 at 02:29 Discharge Date: Jan 15, 2017 Discharge Disposition: Home Principal Diagnosis: crohn's flare Procedures: CT SCAN OF THE ABDOMEN AND PELVIS WITH IV CONTRAST CLINICAL HISTORY: Generalized abdominal pain. Reported history of Crohn's disease. COMPARISON STUDY: Abdominal CT dated 07/27/2016. TECHNIQUE: Following the IV administration of 93 cc of Optiray 320, CT scan of the abdomen and pelvis is performed from the lung bases to the proximal femora. Images are reviewed in the axial, sagittal, and coronal planes. IV contrast was administered without complication. Automated dose control exposure was utilized. CT DOSE: 333.13 mGy.cm FINDINGS: Lung bases: The heart is normal in size and without pericardial effusion. The lung bases are clear. Liver: The contrast-enhanced liver is normal in size, contour, and attenuation. There is mild central intrahepatic biliary ductal dilatation. The hepatic veins and portal veins are patent. Mild periportal edema is noted. Gallbladder: Surgically absent noting clips in the gallbladder fossa. Spleen: Normal in size and attenuation. Pancreas: Unremarkable. Adrenal glands: Unremarkable. Kidneys: The contrast enhanced kidneys are normal in size and without hydronephrosis. The kidneys enhance symmetrically. Abdominal vasculature: The abdominal aorta is normal in course and caliber. 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 There are numerous distended pelvic veins, likely representing venous collaterals. Bowel: There is wall thickening and edema seen involving the the distal/terminal ileum which extends at least 15 cm in length. The upstream small bowel is distended and fecalized, with loops measuring up to 3.6 cm. No additional thick walled bowel loops are identified. There is no evidence of fistula or abscess. The appendix is well-visualized and normal. Peritoneum: There is a small volume of free fluid in the pelvis. No intraperitoneal free air is seen. Lymphadenopathy: None. Pelvic viscera: The bladder, uterus, and adnexa are normal as visualized. Skeletal structures: No lytic or blastic lesions are seen. IMPRESSION: 1. The distal/terminal ileum is thick-walled and edematous comments extends at least 15 cm in length. Given the reported clinical history this likely represents active Crohn's disease. 2. The upstream small bowel appears distended and fluid-filled/fecalized. This may represent mild functional obstruction secondary to mucosal edema or possibly stricture. Ileus could also have this appearance. Clinical correlation will be required. No high-grade bowel obstruction is seen. 3. A small volume of free fluid in the pelvis is nonspecific and may be reactive. 4. There is no evidence of abscess or intraperitoneal free air. 5. Hepatic periportal edema is noted. 6. 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 7. Additional findings as above. Electronically signed by: Zeke Foy M.D. 01/14/2017 1:14 AM Dictated Date/Time: 01/14/2017 1:05 AM Last Resulted CBC 01/13/17 22:35 Red Blood Count 4.33, Mean Corpuscular Volume 90.8, Mean Corpuscular Hemoglobin 32.3, Mean Corpuscular Hemoglobin Concent 35.6, Mean Platelet Volume 10.5, Neutrophils (%) (Auto) 69.4, Lymphocytes (%) (Auto) 23.1, Monocytes (%) (Auto) 6.3, Eosinophils (%) (Auto) 0.6, Basophils (%) (Auto) 0.4, Neutrophils # (Auto) 7.01, Lymphocytes # (Auto) 2.34, Monocytes # (Auto) 0.64, Eosinophils # (Auto) 0.06, Basophils # (Auto) 0.04 Last Resulted BMP 01/13/17 22:35 INR 1.7 --> 3.6 Ddimer 250 Medication Reconciliation New Medications: Ciprofloxacin (Ciprofloxacin HCl) 500 Mg Tab 1 TAB PO BID, #18 TAB Prednisone Tab (Prednisone) 10 Mg Tab 10 MG PO UD, #60 TAB 40mg po daily until seen by GI this week, then as directed Continued Medications: Adalimumab (Humira Pen) 40 Mg/0.8 Ml Kit 1 DOSE SQ EVERY 2 WEEKS, #2 Multivitamin (Multivitamin) Tab 1 TAB PO QAM, TAB ONCE A DAY Warfarin Sod (Coumadin) 10 Mg Tab 10 MG PO MWF Warfarin Sod (Jantoven) 5 Mg Tab 15 MG PO 4XWK, TAB Discharge Exam Physical Exam: General Appearance: no apparent distress Eyes: EOMI ENT: hearing grossly normal Neck: trachea midline Respiratory/Chest: no respiratory distress, no accessory muscle use Extremities: normal inspection Neurologic/Psychiatric: block cutter II-XII nml as tested, alert, normal mood/affect Skin: normal color, warm/dry Hospital Course crohn's flare -quickly improved -stable/safe for home -GI consult and recommendations appreciated -cipro x 10 days total -steroid taper - for now 40mg daily then reduce as recommended by GI -to be seen by GI this week discharge to home, f/u GI this week Total Time Spent: Less than 30 minutes This includes examination of the patient, discharge planning, medication reconciliation, and communication with other providers. Discharge Instructions Please refer to the electronic Patient Visit Report (Discharge Instructions) for additional information. Additional Copies To Steve Chang D.O.
[2017-01-16] MEDS ORDERED: WARFARIN SOD 5 MG TAB PO SCH (16:00)
== END 2017-01-15 11:39 | disposition home or self-care (01) ==
LOC: C.EDB 21:45 → C.MS4W 01-14 02:29 → ENRESERV 01-14 02:37
PROVIDERS: ADMIT Hospitalist; ATTEND Family Medicine
DX: K50.90 Crohn's disease, unspecified, without complications (principal); Z86.718 Personal history of other venous thrombosis and embolism; F17.200 Nicotine dependence, unspecified, uncomplicated; Z88.2 Allergy status to sulfonamides; Z79.01 Long term (current) use of anticoagulants; Z91.040 Latex allergy status; Z80.9 Family history of malignant neoplasm, unspecified; Z83.3 Family history of diabetes mellitus; Z82.49 Family history of ischemic heart disease and other diseases of the circulatory system

== ENCOUNTER → 2017-06-26 | Outpatient (CLI) | payer BC ==
[~2017-06-26] MED LIST changes: +CPR500 PO; +PRED10TA PO
[2017-06-26 13:14] LABS: BASO % 0.6 %; BASO ABS # 0.03 K/uL (0-0.2); COMPLETE YES; EOS % 1.4 %; HEMATOCRIT 39.4 % (37-47); IG% 0.2 %; LYMPH % 33.1 %; LYMPH ABS # 1.71 K/uL (1.2-3.4); MEAN CELL VOLUME 94.5 fL (80-100); MEAN CORPUSCULAR HEMOGLOBIN 32.6 pg (25-34); MEAN CORPUSCULAR HGB CONC 34.5 g/dl (32-36); MEAN PLATELET VOLUME 11.3 fL (7.4-10.4); MONO % 8.3 %; NEUT % 56.4 %; PLATELET COUNT 268 K/uL (130-400); RED BLOOD COUNT 4.17 M/uL (4.2-5.4); WHITE BLOOD COUNT 5.17 K/uL (4.8-10.8)
[2017-06-26 13:39] LABS: ALT/SGPT 23 U/L (12-78); AST/SGOT 16 U/L (15-37); BLOOD UREA NITROGEN 11 mg/dl (7-18); BUN/CREATININE RATIO 18.3 (10-20); CALCIUM 8.4 mg/dl (8.5-10.1); CARBON DIOXIDE 27 mmol/L (21-32); CHLORIDE 104 mmol/L (98-107); CREATININE 0.62 mg/dl (0.60-1.20); GLUCOSE 93 mg/dl (70-99); POTASSIUM 4.4 mmol/L (3.5-5.1); SODIUM 138 mmol/L (136-145)
[2017-06-26 13:42] LABS: ALB/GLOB RATIO 0.9 (0.9-2); ALKALINE PHOSPHATASE 57 U/L (45-117); C-REACTIVE PROTEIN < 0.29 mg/dl (0-0.29)
[2017-06-28 15:05] LABS: QUANTIF TB AG-NIL <0.00 IU/ML; QUANTIFERON NIL 0.04 IU/ML
== END | disposition home or self-care (01) ==
LOC: C.LABMFLN 08:23
PROVIDERS: ATTEND Family Medicine
DX: K50.019 Crohn's disease of small intestine with unspecified complications (principal)

== ENCOUNTER 2019-03-28 18:19 | Observation (INO) ==
[2019-03-28] MEDS ORDERED: HYDROmorphone INJ 0.5 MG/0.5 ML SYR IV PRN (18:46)
[2019-03-28] MEDS ORDERED: ONDANSETRON INJ 2 MG/ML 2 ML VIAL IV STA (18:46)
[2019-03-28] MEDS ORDERED: SODIUM CHLORIDE 0.9% 1000ML 1,000 ML IV SCH (19:00)
[2019-03-28 19:24] LABS: Basophils # (auto) 0.02 K/uL (0-0.2); Basophils % (auto) 0.2 %; Eosinophils # (auto) 0.01 K/uL (0-0.5); Eosinophils % (auto) 0.1 %; Hematocrit (blood only) 44.9 % (37-47); Hemoglobin 16.4 g/dL (12.0-16.0); Immature Granulocytes # (auto) 0.05 K/uL (0.00-0.02); Immature Granulocytes % (auto) 0.4 %; Lymphocytes # (auto) 1.55 K/uL (1.2-3.4); Lymphocytes % (auto) 11.7 %; Mean Corpuscular Hgb Conc 36.5 g/dL (32-36); Mean Platelet Volume 10.4 fL (7.4-10.4); Monocytes # (auto) 0.83 K/uL (0.11-0.59); Monocytes % (auto) 6.3 %; Neutrophils # (auto) 10.78 K/uL (1.4-6.5); Neutrophils % (auto) 81.3 %; Platelet Count 268 K/uL (130-400); RDW Coefficient of Variation 13.3 % (11.5-14.5); White Blood Count 13.24 K/uL (4.8-10.8)
[2019-03-28 19:42] LABS: Alanine Aminotransferase 21 U/L (12-78); Albumin Level 4.1 gm/dl (3.4-5.0); Aspartate Aminotransferase 14 U/L (15-37); Blood Urea Nitrogen 13 mg/dl (7-18); Calcium 9.2 mg/dl (8.5-10.1); Carbon Dioxide 21 mmol/L (21-32); Chloride 107 mmol/L (98-107); Creatinine Clr Calc Pharmacy 92.8 ml/min; Est GFR (African American) 97.3; Glucose 115 mg/dl (70-99); Potassium 3.8 mmol/L (3.5-5.1); Sodium 138 mmol/L (136-145)
[2019-03-28 19:45] LABS: Albumin Globulin Ratio 0.9 (0.9-2); Alkaline Phosphatase 87 U/L (45-117); Bilirubin,Total 0.8 mg/dl (0.2-1); Globulin 4.4 gm/dl (2.5-4.0); Total Protein 8.5 gm/dl (6.4-8.2)
[2019-03-28 19:49] LABS: INR 4.2 (0.9-1.1); Prothrombin Time 39.2 Seconds (9.0-12.0)
--- NOTE | 2019-03-28 20:34 | CT Scan Report ---
CT SCAN OF THE ABDOMEN AND PELVIS WITHOUT CONTRAST CLINICAL HISTORY: abd pain, h/o of Crohn's VOMITING COMPARISON STUDY: 01/14/2017 TECHNIQUE: CT scan of the abdomen and pelvis was performed from the lung bases to the proximal femurs . Images are reviewed in the axial, sagittal, and coronal planes. IV contrast was not administered fo r this examination. A dose lowering technique was utilized adhering to the principles of ALARA. CT DOSE: 672.02 mGy.cm FINDINGS: Lower chest: The heart is normal in size and configuration, without pericardial effusion. The lung ba ses and pleural spaces are clear. Liver: The unenhanced liver is normal in size, contour, and attenuation. There is no intrahepatic jocelyne iary ductal dilatation. Gallbladder: Surgically absent Spleen: Normal in size and attenuation. There is a small splenule abutting the left kidney. Pancreas: Unremarkable. Adrenal glands: Unremarkable. Kidneys: No renal, ureteral, or bladder calculi are visualized. Bowel: There are persistently dilated small bowel loops with formed fecal material. Mild distal ileal wall thickening is suspected. Evaluation is limited given the absence of intravenous and administere d contrast. There is no evidence of acute diverticulitis. There is mild infiltration of the right ant erior pelvic mesenteric fat. Peritoneum: There is free pelvic fluid present. There is no free intraperitoneal air. Vasculature: The abdominal aorta is normal in course and caliber. There are prominent periuterine ves sels similar to the prior study Adenopathy: None. Pelvic viscera: The bladder, and pelvic viscera are unremarkable. Skeletal structures: No destructive osseous lesions are seen. IMPRESSION: 1. Study limited due to the lack of intravenous and oral contrast 2. Persistent mildly dilated small bowel loops with a small bowel feces sign. Distal ileal wall thick ening with mild infiltration of the right lower quadrant anterior peritoneal fat. The findings are co nsistent with the clinical diagnosis of Crohn's disease. 3. No evidence of abscess. No evidence of free intraperitoneal air. 4. Free intraperitoneal fluid. Electronically signed by: Cory Ballard M.D. 03/28/2019 8:32 PM
[2019-03-28] MEDS ORDERED: predniSONE 20 MG TAB PO STA (22:08)
[2019-03-28 22:47] LABS: Troponin I < 0.015 ng/ml (0-0.045)
[2019-03-28] MEDS ORDERED: HYDROmorphone INJ 0.5 MG/0.5 ML SYR IV STA (23:14)
--- NOTE | 2019-03-28 23:40 | History & Physical Report ---
Date of Service March 28, 2019 Assessment & Plan (1) Vom[age]-year-old female was admitted on 28 March 2019 for vomiting and likely Crohn's flair. Vomiting, likely Crohn's flare: Patient notes the onset of epigastric regional abdominal pain and vomiting about 24 hours prior to admission. Says it feels very much like previous Crohn's flares. Most recent was earlier this month but otherwise has not had any for over [address] Chang of gastroenterology. Denies fevers, generalized abdominal pain, diarrhea, or other focal concerns. - In ED, afebrile, borderline bradycardic, rather normotensive, with normal room SpO2. WBC 13. Electrolytes, LFTs, and lipase okay. CT a/p non-con was suggestive of Crohn's disease without abscess or free air. - In ED, treated with Dilaudid, prednisone 40 mg p.o., Zofran, and normal saline IVF. - Will keep on prednisone 50 mg daily. Dialudid and Zofran as needed for pain. Some maintenance IVF. Panic attacks: Patient says that she frequently gets panic attacks, including virtually always with her Crohn's flares. She notes at least four episodes in the past 24 hours. During that time she feels very anxious and has shortness of breath. However, on resolution she denies present / interval CP or SOB. - In ED, EKG was NSR 60 with T wave inversions in III, aVF, and V3 (different than most recent comparison in January 2017). Troponin at 1916 was negative. - After discussion with attending, we will keep on test engineering intern and recheck troponin + EKG in the morning. Consulted cardiology. 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 Admit INR 4.2. --- Will hold for now and recheck INR in AM. - Anxiety: Continue home sertraline. Code status: Full code. Diet: Clear liquid diet for now. DVT prophy: Coumadin. PT/OT: Deferred. Disbo: Admit to [facility] with telemetry. (2) Exacerbation of Crohn's disease: (3) Panic attack: (4) Chronic thrombosis of both iliac veins: (5) Supratherapeutic INR: (6) Anxiety: History of Present Illness Primary Care Provider: Zeke Miller MD 49-year-old female with a known history of Crohn's disease presents with multiple episodes of nonbloody emesis that began the evening prior to admission (27 March) as well as epigastric discomfort. She says this feels identical to previous Crohn's flares. She says that she had a Crohn's flare earlier this month but prior to this did not have a single flare this year or through 2018. Because of this she has not been on any maintenance medications. In the past she was on Humira but says that it made her feel quite tired. She is followed by Dr. Chang of gastroenterology. She notes no present diarrhea but says it frequently will start within 24 hours of vomiting onset. Denies any fevers or feeling of generalized illness. She has no other particular focal concerns. On review of her past medical history, she has a known history of anxiety and describes frequent panic attacks. She says she always gets panic attacks with Crohn's flares and mentions about 4+ episodes in the past 24 hours. She says these episodes consist of being very anxious and feeling short of breath. However, she denies any overt chest pain throughout this time. At time of this H&P, she says overall she feels quite calm and denies any chest pain or shortness of breath. 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 - Past surgical history includes cholecystectomy. - Social history includes smoking 1/2 pack/day for over 20 years. Denies alcohol use. Lives at home. Allergies Allergy/AdvReac Type Severity Reaction Status Date / Time adhesive Allergy Unknown BANDAIDS-RED Verified 03/28/19 19:30 BLISTERS Penicillins Allergy Unknown UNKNOWN Verified 03/28/19 19:30 codeine AdvReac Unknown NAUSEA AND Verified 03/28/19 19:30 VOMITING Latex2 -Systemic Allergic Allergy Severe HIVES Uncoded 03/28/19 19:30 Response Home Medications Home Medications Medication Instructions Recorded Confirmed Type warfarin [Jantoven] 12.5 mg PO DAILY 03/28/19 04/03/19 History prednisone 50 mg PO DAILY #75 tab 03/29/19 04/03/19 Rx ondansetron 4 mg disintegrating 4 mg PO QID PRN #24 tab 04/03/19 04/03/19 Rx tablet sertraline 100 mg tablet 150 mg PO DAILY #45 tab 04/03/19 04/03/19 Rx Past Med/Surg History Medical History Crohn's ileitis Anticoagulant long-term use Arterial embolism and thrombosis Chronic cholecystitis Dysfunctional uterine bleeding Surgical History H/O colonoscopy Hx of cholecystectomy Social History Preferred Language: Lao Beliefs That Will Affect Care: None Current Living Situation: Spouse Feels Safe at Home: Yes Smoking Status: Current every day smoker Tobacco Type: cigarettes ; Hx Alcohol Use: Yes Alcohol type: wine Hx Substance Use: No Review of Systems Review of Systems: Constitutional: Denies fevers, chills, focal weakness Eyes: Denies any visual loss or diplopia ENT: Denies any ear/nose/throat pain or difficulty speaking or swallowing Respiratory: Denies any dyspnea, cough, hemoptysis Cardiovascular: Denies any chest pain or feeling of edema Gastrointestinal: Positive abdominal pain, nausea, and vomiting. Denies present diarrhea. Musculoskeletal: Denies any acute extremity pains, myalgias, or focal weakness Skin: Denies any known acute rashes or lesions Neuro: Denies any headache, acute focal weakness or numbness, or difficulties with speech or swallow. Hematologic: Denies any easy bleeding or bruising Physical Exam Physical Exam: GENERAL: Awake, alert, well-appearing at the moment, in no acute distress HENT: Normocephalic, atraumatic. Oropharynx unremarkable. EYES: Normal conjunctiva. Sclera non-icteric. NECK: Inspection normal. Supple and full ROM. No nuchal rigidity. CARDIAC: +S1S2 RRR, no murmurs. RESPIRATORY: Clear to auscultation. No wheezes or rales. Normal respiratory effort. GI: +BS, soft, non-distended. Positive tenderness palpation primarily epigastrically, less so in bilateral upper quadrants. No rebound or guarding. EXTREMITIES: No pedal edema or calf tenderness. Moving all extremities naturally and easily. Chronic skin changes on the right lateral calf. NEURO: No gross neuro deficits. Results & Data Vital Signs (Past 12 Hours) Vital Signs Temp Pulse Resp BP Pulse Ox 03/28/19 21:40 62 20 03/28/19 21:30 65 12 104/73 03/28/19 21:20 62 18 03/28/19 21:10 69 13 03/28/19 21:00 74 16 132/85 03/28/19 20:50 70 16 03/28/19 20:40 68 13 03/28/19 20:30 71 22 118/85 03/28/19 20:20 72 13 03/28/19 20:13 63 15 03/28/19 20:10 58 L 13 138/81 03/28/19 20:00 98 03/28/19 18:47 36.4 C 03/28/19 18:37 93 H 26 H 124/77 100 Laboratory Results 03/28/19 03/28/19 03/28/19 Range/Units 19:16 19:16 19:16 WBC 13.24 H (4.8-10.8) K/uL RBC 5.10 (4.2-5.4) M/uL Hgb 16.4 H (12.0-16.0) g/dL Hct 44.9 (37-47) % MCV 88.0 (80-100) fL MCH 32.2 (25-34) pg MCHC 36.5 H (32-36) g/dL RDW Std Deviation 43.0 (36.4-46.3) fL RDW Coeff of Rain 13.3 (11.5-14.5) % Plt Count 268 (130-400) K/uL MPV 10.4 (7.4-10.4) fL Immature Gran % (Auto) 0.4 % Neut % (Auto) 81.3 % Lymph % (Auto) 11.7 % [place] % (Auto) 6.3 % Eos % (Auto) 0.1 % Baso % (Auto) 0.2 % Immature Gran # (Auto) 0.05 H (0.00-0.02) K/uL Neut # (Auto) 10.78 H (1.4-6.5) K/uL Lymph # (Auto) 1.55 (1.2-3.4) K/uL [place] # (Auto) 0.83 H (0.11-0.59) K/uL Eos # (Auto) 0.01 (0-0.5) K/uL Baso # (Auto) 0.02 (0-0.2) K/uL PT 39.2 H (9.0-12.0) Seconds INR 4.2 H (0.9-1.1) Sodium 138 (136-145) mmol/L Potassium 3.8 (3.5-5.1) mmol/L Chloride 107 (98-107) mmol/L Carbon Dioxide 21 (21-32) mmol/L Anion Gap 10.0 (3-11) BUN 13 (7-18) mg/dl Creatinine 0.83 (0.6-1.2) mg/dl Est Cr Clr Drug Dosing 92.8 ml/min Est GFR ( Amer) 97.3 Est GFR (Non-Af Amer) 84.0 BUN/Creatinine Ratio 16.0 (10-20) Glucose 115 H (70-99) mg/dl Calcium 9.2 (8.5-10.1) mg/dl Total Bilirubin 0.8 (0.2-1) mg/dl AST 14 L (15-37) U/L ALT 21 (12-78) U/L Alkaline Phosphatase 87 (45-117) U/L Troponin I < 0.015 (0-0.045) ng/ml Total Protein 8.5 H (6.4-8.2) gm/dl Albumin 4.1 (3.4-5.0) gm/dl Globulin 4.4 H (2.5-4.0) gm/dl Albumin/Globulin Ratio 0.9 (0.9-2) Lipase 91 (73-393) U/L Medications Administered Hydromorphone HCl (Dilaudid) 0.5 mg IV Q15M PRN PRN Reason: Pain Stop: 04/11/19 18:45 Last Admin: 03/28/19 19:18 Dose: 0.5 mg Documented by: [id number] Discontinued Medications Sodium Chloride (Nss 1000ml) 1,000 mls @ 999 mls/hr IV .Q1H1M BRITNEY Stop: 03/28/19 20:00 Last Infusion: 03/28/19 20:26 Dose: 0 mls/hr Documented by: [id number] Admin: 03/28/19 19:18 Dose: 999 mls/hr Documented by: [id number] Ondansetron HCl (Zofran) 4 mg IV NOW STA Stop: 03/28/19 18:47 Last Admin: 03/28/19 19:18 Dose: 4 mg Documented by: [id number] Prednisone (Prednisone) 40 mg PO NOW STA Stop: 03/28/19 22:09 Last Admin: 03/28/19 22:51 Dose: 40 mg Documented by: [id number] Code Status & VTE Plan Code Status Full code VTE Prophylaxis Plan VTE Prophylaxis will be ordered: Yes Supervising Physician Co-Signing Physician Notes I reviewed above note and agree with it. During my face to face encounter with patient, I performed a history and physical examination. I answered all of the patient's questions. I agree that patient likely is suffering from a flair up from her inflammatory bowel syndrome. will contiue with prednsione and pain management. PG Care Time/CCT Total # of Minutes Spent Total Time Spent with Patient: Total time spent is greater than 50% in coordination of care (as documented) at patient's floor/unit and/or counseling patient: Resident Activity Tracking Resident Involvement: Resident Care Provided Care Provided: Adult Hospital Medicine (1) Exacerbation of Crohn's disease Digestive disease complication type: unspecified complication Qualified Code(s): K50.919 - Crohn's disease, unspecified, with unspecified complications
[2019-03-29] MEDS ORDERED: ACETAMINOPHEN 325 MG TAB PO PRN (00:28)
[2019-03-29] MEDS ORDERED: HYDROmorphone INJ 0.5 MG/0.5 ML SYR IV PRN (00:28)
[2019-03-29] MEDS ORDERED: NITROGLYCERIN SL 0.4 MG/TAB TAB SL PRN (00:28)
[2019-03-29] MEDS ORDERED: ONDANSETRON INJ 2 MG/ML 2 ML VIAL IV PRN (00:28)
[2019-03-29] MEDS ORDERED: LACTATED RINGER'S 1,000 ML IV SCH (00:28)
--- NOTE | 2019-03-29 01:11 | Emergency Department Note ---
Entered by Yannick Morris acting as a scribe for ED Provider Note CHIEF COMPLAINT: Vomiting HISTORY OF PRESENT ILLNESS: The patient is a 49 year old female who presents to the Emergency Room with complaints of intermittent vomiting starting last night. The patient states she feels weak and SOB. She notes she has Crohn's disease and it flares up intermittently. She notes she gets back pain intermittently from Crohn's disease. She states she is usually able to manage her Crohn's at home but this is worse than normal. She notes she gets panic attacks often and takes medication for that. She notes she had a blood clot in her right leg and she takes blood thinners. She notes she had her blood clot checked last and it was fine. Pt denies LOC, headache, fevers, chills, diaphoresis, visual changes, neck pain, chest pain, melena, hematochezia, urinary symptoms, numbness, lymphadenopathy, rash, or other complaints. She states her PCP is Dr. Zeke Miller. REVIEW OF SYSTEMS: See HPI for pertinent positives and negatives. A total of ten systems were reviewed and were otherwise negative. PMHx/PSHx: Crohn's disease, Anxiety, Cholecystectomy. SOCIAL HISTORY: Patient lives at home. PHYSICAL EXAM: GENERAL: Awake, alert, uncomfortable-appearing, in no distress HENT: Normocephalic, atraumatic. Oropharynx unremarkable. EYES: PERRL. Normal conjunctiva. Sclera non-icteric. NECK: Inspection normal. Non-tender. Supple. No nuchal rigidity. FROM. No masses. RESPIRATORY: Clear to auscultation. No wheezes. No rales. Normal respiratory effort. CARDIAC: Normal rate. Normal rhythm. No murmurs. No rubs. Extremities warm and well perfused. Pulses equal. No JVD. GI: Soft, non-distended. No rebound. No masses. Diffuse abdominal tenderness worse in the epigastric region. Mild guarding. RECTAL: Deferred. MUSCULOSKELETAL: Atraumatic. Chest examination reveals no tenderness. The back is symmetrical on inspection without obvious abnormality. There is no CVA tenderness to palpation. No joint edema. LOWER EXTREMITIES: Calves are equal size bilaterally and non-tender. No edema. Chronic venous discoloration in right leg. NEURO: Normal sensorium. No sensory or motor deficits noted. SKIN: No rash or jaundice noted. EMERGENCY DEPARTMENT COURSE: 1844: Past medical records reviewed. The patient was evaluated in room C10, and a complete history and physical examination were performed. 2150: I reevaluated the patient. She states she does not want to stay in the hospital 2154: I spoke with Dr. Pfeiffer - [employer]. He states to give the patient 40 mg of prednisone for 7 days. He states he will see the patient tomorrow or first thing next week. 2216: I reevaluated the patient. She states she is willing to get admitted. 2223: I discussed the patient's case with Dr. Groves - [facility]. He will evaluate the patient for further management MEDICAL DECISION MAKING: C10 Triage Nursing notes reviewed and agree them. The patient's history was concerning for abdominal pain. Differential diagnosis: Etiologies such as exacerbation of Crohn's disease, appendicitis, diverticulitis, PUD, biliary pathology, UTI, pancreatitis, obstruction, mesenteric ischemia, aortic pathology, infections, inflammatory bowel disease, renal colic, as well as others were entertained. Physical examination findings: As above. ER treatment provided: IV Dilaudid IV Zofran Normal saline On reassessment the patient felt better. Diagnostics interpreted by me: ECG: Inferior and anterolateral nonspecific ST and T wave changes which are new compared to prior. The labs revealed mild leukocytosis on CBC. Chemistry panel was unremarkable. INR was supratherapeutic at 4.2. Troponin negative. Imaging studies: CT scan abdomen pelvis was performed. This showed inflammatory changes consistent with Crohn's disease. No obvious perforation or abscess. The patient had significant changes on her CT scan and was quite uncomfortable. She also had the shortness of breath. She did not want to stay in the hospital initially. Consultation: A consultation was placed with the GI doctor on-call, Dr. pfeiffer. He recommended initiation of oral prednisone and close follow-up in the office as the patient has been noncompliant. I did discuss the fact that the patient had acute ECG changes with the patient can and she did change her mind and agreed to stay in the hospital. Consultation was placed with the [facility] hospitalist. The case was discussed and diagnostics were reviewed. The patient was evaluated in the ER for further treatment. IMPRESSION: Generalized abdominal pain, Chron's exacerbation, SOB, Acute EKG changes, and supratherapeutic INR PLAN: Admitted. The scribe's documentation has been prepared under my direction and personally reviewed by me in its entirety. I confirm that the note above accurately reflects all work, treatment, procedures, and medical decision making performed by me. Impression & Plan Generalized abdominal pain, Exacerbation of Crohn's disease, SOB (shortness of breath), Acute electrocardiogram changes, Supratherapeutic INR Past Med/Surg History Medical History Anticoagulant long-term use Surgical History Hx of cholecystectomy Social History Preferred Language: Belarusian Beliefs That Will Affect Care: None Current Living Situation: Spouse Other Information That Helps Us Care for You: No Feels Safe at Home: Yes Safety Concerns: Feels Safe At This Time Smoking Status: Current every day smoker Tobacco Type: cigarettes ; Tobacco Cessation Education Requested by Patient: No Hx Alcohol Use: Yes Alcohol type: wine Hx Substance Use: No Results & Data Vital Signs Vital Signs - 24 hr 03/28/19 18:37 03/28/19 18:47 03/28/19 20:00 Temperature 36.4 C Temperature Source Oral Sepsis Recent Fever Within 48 Hours No Sepsis Action Taken by Nursing No Action Required Pulse Rate 93 H Respiratory Rate 26 H Blood Pressure 124/77 Blood Pressure Mean 92 Pulse Oximetry 100 98 Oxygen Delivery Method Room Air Room Air 03/28/19 20:10 03/28/19 20:13 03/28/19 20:20 Temperature Temperature Source Sepsis Recent Fever Within 48 Hours Sepsis Action Taken by Nursing Pulse Rate 58 L 63 72 Respiratory Rate 13 15 13 Blood Pressure 138/81 Blood Pressure Mean 100 Pulse Oximetry Oxygen Delivery Method 03/28/19 20:30 03/28/19 20:40 03/28/19 20:50 Temperature Temperature Source Sepsis Recent Fever Within 48 Hours Sepsis Action Taken by Nursing Pulse Rate 71 68 70 Respiratory Rate 22 13 16 Blood Pressure 118/85 Blood Pressure Mean 96 Pulse Oximetry Oxygen Delivery Method 03/28/19 21:00 03/28/19 21:10 03/28/19 21:20 Temperature Temperature Source Sepsis Recent Fever Within 48 Hours Sepsis Action Taken by Nursing Pulse Rate 74 69 62 Respiratory Rate 16 13 18 Blood Pressure 132/85 Blood Pressure Mean 100 Pulse Oximetry Oxygen Delivery Method 03/28/19 21:30 03/28/19 21:40 03/28/19 22:00 Temperature Temperature Source Sepsis Recent Fever Within 48 Hours Sepsis Action Taken by Nursing Pulse Rate 65 62 59 L Respiratory Rate 12 20 13 Blood Pressure 104/73 97/60 L Blood Pressure Mean 83 72 Pulse Oximetry Oxygen Delivery Method 03/28/19 22:30 03/28/19 23:00 03/28/19 23:30 Temperature Temperature Source Sepsis Recent Fever Within 48 Hours Sepsis Action Taken by Nursing Pulse Rate 57 L 57 L 54 L Respiratory Rate 17 16 16 Blood Pressure 97/64 L 124/83 91/55 L Blood Pressure Mean 75 96 67 Pulse Oximetry Oxygen Delivery Method Home Medications Current Medication List: was personally reviewed by me Laboratory Data Attestation: I reviewed the patient's lab results. Result diagrams: 03/28/19 19:16 03/28/19 19:16 Lab Results 03/28/19 03/28/19 03/28/19 Range/Units 19:16 19:16 19:16 WBC 13.24 H (4.8-10.8) K/uL RBC 5.10 (4.2-5.4) M/uL Hgb 16.4 H (12.0-16.0) g/dL Hct 44.9 (37-47) % MCV 88.0 (80-100) fL MCH 32.2 (25-34) pg MCHC 36.5 H (32-36) g/dL RDW Std Deviation 43.0 (36.4-46.3) fL RDW Coeff of Rain 13.3 (11.5-14.5) % Plt Count 268 (130-400) K/uL MPV 10.4 (7.4-10.4) fL Immature Gran % (Auto) 0.4 % Neut % (Auto) 81.3 % Lymph % (Auto) 11.7 % [place] % (Auto) 6.3 % Eos % (Auto) 0.1 % Baso % (Auto) 0.2 % Immature Gran # (Auto) 0.05 H (0.00-0.02) K/uL Neut # (Auto) 10.78 H (1.4-6.5) K/uL Lymph # (Auto) 1.55 (1.2-3.4) K/uL [place] # (Auto) 0.83 H (0.11-0.59) K/uL Eos # (Auto) 0.01 (0-0.5) K/uL Baso # (Auto) 0.02 (0-0.2) K/uL PT 39.2 H (9.0-12.0) Seconds INR 4.2 H (0.9-1.1) Sodium 138 (136-145) mmol/L Potassium 3.8 (3.5-5.1) mmol/L Chloride 107 (98-107) mmol/L Carbon Dioxide 21 (21-32) mmol/L Anion Gap 10.0 (3-11) BUN 13 (7-18) mg/dl Creatinine 0.83 (0.6-1.2) mg/dl Est Cr Clr Drug Dosing 92.8 ml/min Est GFR ( Amer) 97.3 Est GFR (Non-Af Amer) 84.0 BUN/Creatinine Ratio 16.0 (10-20) Glucose 115 H (70-99) mg/dl Calcium 9.2 (8.5-10.1) mg/dl Total Bilirubin 0.8 (0.2-1) mg/dl AST 14 L (15-37) U/L ALT 21 (12-78) U/L Alkaline Phosphatase 87 (45-117) U/L Troponin I < 0.015 (0-0.045) ng/ml Total Protein 8.5 H (6.4-8.2) gm/dl Albumin 4.1 (3.4-5.0) gm/dl Globulin 4.4 H (2.5-4.0) gm/dl Albumin/Globulin Ratio 0.9 (0.9-2) Lipase 91 (73-393) U/L Administered Medications Discontinued Medications Hydromorphone HCl (Dilaudid) 0.5 mg IV Q15M PRN PRN Reason: Pain Stop: 04/11/19 18:45 Last Admin: 03/28/19 19:18 Dose: 0.5 mg Documented by: [id number] Hydromorphone HCl (Dilaudid) 0.5 mg IV NOW STA Stop: 03/28/19 23:15 Last Admin: 03/28/19 23:37 Dose: 0.5 mg Documented by: [id number] Sodium Chloride (Nss 1000ml) 1,000 mls @ 999 mls/hr IV .Q1H1M BRITNEY Stop: 03/28/19 20:00 Last Infusion: 03/28/19 20:26 Dose: 0 mls/hr Documented by: [id number] Admin: 03/28/19 19:18 Dose: 999 mls/hr Documented by: [id number] Ondansetron HCl (Zofran) 4 mg IV NOW STA Stop: 03/28/19 18:47 Last Admin: 03/28/19 19:18 Dose: 4 mg Documented by: [id number] Prednisone (Prednisone) 40 mg PO NOW STA Stop: 03/28/19 22:09 Last Admin: 03/28/19 22:51 Dose: 40 mg Documented by: [id number] Imaging Data Radiologist's Impression: Radiology results as stated below per my review and the radiologist's interpretation: CT SCAN OF THE ABDOMEN AND PELVIS WITHOUT CONTRAST CLINICAL HISTORY: abd pain, h/o of Crohn's VOMITING COMPARISON STUDY: 01/14/2017 TECHNIQUE: CT scan of the abdomen and pelvis was performed from the lung bases to the proximal femurs. Images are reviewed in the axial, sagittal, and coronal planes. IV contrast was not administered for this examination. A dose lowering technique was utilized adhering to the principles of ALARA. CT DOSE: 672.02 mGy.cm FINDINGS: Lower chest: The heart is normal in size and configuration, without pericardial effusion. The lung bases and pleural spaces are clear. Liver: The unenhanced liver is normal in size, contour, and attenuation. There is no intrahepatic biliary ductal dilatation. Gallbladder: Surgically absent Spleen: Normal in size and attenuation. There is a small splenule abutting the left kidney. Pancreas: Unremarkable. Adrenal glands: Unremarkable. Kidneys: No renal, ureteral, or bladder calculi are visualized. Bowel: There are persistently dilated small bowel loops with formed fecal material. Mild distal ileal wall thickening is suspected. Evaluation is limited given the absence of intravenous and administered contrast. There is no evidence of acute diverticulitis. There is mild infiltration of the right anterior pelvic mesenteric fat. Peritoneum: There is free pelvic fluid present. There is no free intraperitoneal air. Vasculature: The abdominal aorta is normal in course and caliber. There are pr ominent periuterine vessels similar to the prior study Adenopathy: None. Pelvic viscera: The bladder, and pelvic viscera are unremarkable. Skeletal structures: No destructive osseous lesions are seen. IMPRESSION: 1. Study limited due to the lack of intravenous and oral contrast 2. Persistent mildly dilated small bowel loops with a small bowel feces sign. Distal ileal wall thickening with mild infiltration of the right lower quadrant anterior peritoneal fat. The findings are consistent with the clinical diagnosis of Crohn's disease. 3. No evidence of abscess. No evidence of free intraperitoneal air. 4. Free intraperitoneal fluid. Electronically signed by: Cory Ballard M.D. 03/28/2019 8:32 PM ECG Data Attestation: I personally reviewed and interpreted this ECG as follows: Indication: vomiting Rate (beats per minute): 60 Rhythm: sinus with SA Findings: + nonspecific-ST abn (and T wave abn inferiorly and anterior); no PVC and no ST elevation Comparison ECG Date: from (01/13/17) Change: the following changes noted (Non specific st and t wave abn in inferior and anterior are new) Blood Pressure Blood Pressure Findings: Normal blood pressure Blood Pressure Disposition: further management by hospitalist Discharge Plan Visit Data *Final* Discharge Date/Time: 03/29/19 00:05 Chief Complaint: Vomiting Stated Complaint: VOMITING, HX [facility] ED Provider: Paolo Mcdonald Discharge Problem: Generalized abdominal pain, Exacerbation of Crohn's disease, SOB (shortness of breath), Acute electrocardiogram changes, Supratherapeutic INR Patient Disposition: Admitted As Inpatient Discharge Instructions Interventions: ED Discharge Assessment Last Done: 03/29/19 00:05 Discharge Problem: Exacerbation of Crohn's disease Qualifiers: Digestive disease complication type: unspecified complication Qualified Code(s): K50.919 - Crohn's disease, unspecified, with unspecified complications The scribe's documentation has been prepared under my direction and personally reviewed by me in its entirety. I confirm that the note above accurately reflects all work, treatment, procedures, and medical decision making performed by me.
[2019-03-29 06:18] LABS: Appearance Urine Cloudy (Clear); Bacteria Urine Automated Negative (Negative); Blood Urine Negative (Negative); Color Urine Dark Yellow; Epithelial Cell Urine Auto >30 /lpf (0-5); Glucose Urine UA Negative (Negative); Ketones Urine 1+ (Negative); Leukocyte Esterase Urine Negative (Negative); Nitrite Urine Negative (Negative); Protein Urine Negative (Negative); Specific Gravity Urine 1.032 (1.000-1.030); Urobilinogen Urine Negative (Negative)
[2019-03-29 06:28] LABS: Bilirubin Urine Negative (Negative); Ictotest Urine Negative (Negative)
[2019-03-29 07:03] LABS: Mucus Urine Present (None Prsent); RBC Urine Automated 0-4 /hpf (0-4)
[2019-03-29 07:04] LABS: Amorphous Sediment Urine Present (None Prsent)
[2019-03-29 07:22] LABS: INR 4.4 (0.9-1.1); Prothrombin Time 40.8 Seconds (9.0-12.0)
[2019-03-29 07:40] LABS: Blood Urea Nitrogen 12 mg/dl (7-18); Carbon Dioxide 23 mmol/L (21-32); Chloride 107 mmol/L (98-107); Est GFR (African American) 120.7; Est GFR (Non-African American) 104.2; Sodium 138 mmol/L (136-145)
[2019-03-29 07:41] LABS: Calcium 8.2 mg/dl (8.5-10.1); Glucose 128 mg/dl (70-99)
[2019-03-29 07:45] LABS: Troponin I < 0.015 ng/ml (0-0.045)
[2019-03-29] MEDS ORDERED: SERTRALINE HCL 100 MG TABLET PO SCH ×2 (09:00→21:00)
--- NOTE | 2019-03-29 09:37 | Gastrointestinal Consultation ---
Date of Consultation March 29, 2019 Assessment & Plan (1) Crohn's ileitis: (2) Exacerbation of Crohn's disease: 1. Stable for discharge from GI perspective. 2. Recommend Prednisone taper upon discharge starting at 40 mg daily, decreasing by 5 mg weekly until complete. 3. Advance diet to soft, low residue diet and then to normal as tolerated. 4. Avoid NSAIDs. 5. Counseled the patient on risks of discontinuing maintenance including risk of Crohn's flares and risks of developing Crohn's related complications such as stenosis, abscess, fistula and rarely malignancy. As she did not tolerate Humira, will plan to initiate Entyvio infusions. She was agreeable to this plan. 6. Follow up appointment has been arranged for April 02 at 11:00 am in our office. Supervising Physician Co-Signing Physician Notes Agree with HEATHER Panda as above Patient was discharged prior to my evaluation. History of Present Illness Reason for Consultation: Crohn's flare Requesting Physician: Dr. Quintanilla Attending Physician: Kerry Rainey MD History of Present Illness Patient is a 49 year-old female with a history of Crohn's ileitis diagnosed initially in 2015. She was placed on Humira for maintenance therapy and did achieve remission of symptoms while using this medication. She was last seen in our office, however, in 2017. At that time, she was doing quite well on Humira and did have drug/ab levels drawn with adequate trough and no antibody formation. Unfortunately, the patient self D/C'd the Humira without notifying our office and did become lost to follow up. Despite this, she reports she was doing quite well and was asymptomatic until last night. At that time, she developed sharp mid-abdominal pains (rated 8/10) that would wax and wane with associated nausea and vomiting. States "I knew it was my Crohn's". She presented to the ER for further evaluation. On arrival, she was found to have a mild leukocytosis of 13.24 but was not anemic. CT a/p without enhancement d emonstrated " Persistent mildly dilated small bowel loops with a small bowel feces sign. Distal ileal wall thickening with mild infiltration of the right lower quadrant anterior peritoneal fat. The findings are consistent with the clinical diagnosis of Crohn's disease. 3. No evidence of abscess. No evidence of free intraperitoneal air." She reports that prior to the onset of pain, she was having normal bowel movements without diarrhea, constipation, melena, or hematochezia. She further denies any fevers/chills, arthralgias, myalgias, eye pain/redness, skin rashes, oral aphthous ulcers or fatigue. Since arrival, she has been placed on oral Prednisone and administered IV analgesics/antiemetics with improved symptoms. Patient desires discharge to home today. Allergies Allergy/AdvReac Type Severity Reaction Status Date / Time adhesive Allergy Unknown BANDAIDS-RED Verified 03/28/19 19:30 BLISTERS Penicillins Allergy Unknown UNKNOWN Verified 03/28/19 19:30 codeine AdvReac Unknown NAUSEA AND Verified 03/28/19 19:30 VOMITING Latex2 -Systemic Allergic Allergy Severe HIVES Uncoded 03/28/19 19:30 Response Home Medications Home Medications Medication Instructions Recorded Confirmed Type sertraline [Zoloft] 100 mg PO DAILY 03/28/19 03/28/19 History warfarin [Jantoven] 12.5 mg PO DAILY 03/28/19 03/28/19 History prednisone 50 mg PO DAILY #75 tab 03/29/19 Rx Patient History Medical History Crohn's ileitis Anticoagulant long-term use Arterial embolism and thrombosis Chronic cholecystitis Dysfunctional uterine bleeding Surgical History H/O colonoscopy Hx of cholecystectomy Social History Preferred Language: Egyptian Beliefs That Will Affect Care: None Current Living Situation: Spouse Feels Safe at Home: Yes Smoking Status: Current every day smoker Tobacco Type: cigarettes ; Hx Alcohol Use: Yes Alcohol type: wine Hx Substance Use: No Review of Systems Review of Systems: All systems reviewed & are unremarkable except as noted in HPI & below Physical Exam Constitutional: WD/WN, vitals as above Eyes: EOM intact bilaterally Neck: normal appearance Respiratory: normal respiratory effort, lungs clear to auscultation Cardiovascular: Rate/Rhythm: regular rate and regular rhythm Heart Sounds: no gallop and no murmur Gastrointestinal (Abdomen): normal bowel sounds, soft, nontender, no hepatosplenomegaly Inspection/Auscultation: abdomen not distended Musculoskeletal: Extremities: no cyanosis no lower extremity edema Skin: no rashes, warm and dry Neurologic: moves all extremities Psychiatric: A+Ox3, euthymic affect Results & Data Vital Signs (Past 12 Hours) Vital Signs Temp Pulse Pulse Resp BP BP BP 03/29/19 07:13 36.6 C 60 18 110/70 03/29/19 04:00 36.6 C 55 L 20 106/68 03/29/19 00:52 73 03/29/19 00:51 36.5 C 72 20 103/72 03/29/19 00:49 36.5 C 72 20 103/72 03/29/19 00:37 36.5 C 72 20 103/72 03/29/19 00:28 03/28/19 23:30 54 L 16 91/55 L 03/28/19 23:00 57 L 16 124/83 03/28/19 22:30 57 L 17 97/64 L 03/28/19 22:00 59 L 13 97/60 L 03/28/19 21:40 62 20 Pulse Ox Pulse Ox 03/29/19 07:13 96 03/29/19 04:00 99 03/29/19 00:52 03/29/19 00:51 96 03/29/19 00:49 96 03/29/19 00:37 96 03/29/19 00:28 96 03/28/19 23:30 03/28/19 23:00 03/28/19 22:30 03/28/19 22:00 03/28/19 21:40 Laboratory Results Abnormal lab results 03/28/19 03/28/19 03/28/19 Range/Units 19:16 19:16 19:16 WBC 13.24 H (4.8-10.8) K/uL Hgb 16.4 H (12.0-16.0) g/dL MCHC 36.5 H (32-36) g/dL Immature Gran # (Auto) 0.05 H (0.00-0.02) K/uL Neut # (Auto) 10.78 H (1.4-6.5) K/uL [place] # (Auto) 0.83 H (0.11-0.59) K/uL PT 39.2 H (9.0-12.0) Seconds INR 4.2 H (0.9-1.1) Glucose 115 H (70-99) mg/dl Calcium (8.5-10.1) mg/dl AST 14 L (15-37) U/L Total Protein 8.5 H (6.4-8.2) gm/dl Globulin 4.4 H (2.5-4.0) gm/dl Urine Appearance (Clear) Ur Specific [place] (1.000-1.030) Urine Ketones (Negative) U Hyaline Cast (Auto) (0-5) /lpf U Epithel Cells (Auto) (0-5) /lpf Amorphous Sediment (None Prsent) Urine Mucus (None Prsent) 03/29/19 03/29/19 03/29/19 Range/Units 05:28 06:42 06:42 WBC (4.8-10.8) K/uL Hgb (12.0-16.0) g/dL MCHC (32-36) g/dL Immature Gran # (Auto) (0.00-0.02) K/uL Neut # (Auto) (1.4-6.5) K/uL [place] # (Auto) (0.11-0.59) K/uL PT 40.8 H (9.0-12.0) Seconds INR 4.4 H (0.9-1.1) Glucose 128 H (70-99) mg/dl Calcium 8.2 L (8.5-10.1) mg/dl AST (15-37) U/L Total Protein (6.4-8.2) gm/dl Globulin (2.5-4.0) gm/dl Urine Appearance Cloudy A (Clear) Ur Specific [place] 1.032 H (1.000-1.030) Urine Ketones 1+ H (Negative) U Hyaline Cast (Auto) 5-10 H (0-5) /lpf U Epithel Cells (Auto) >30 H (0-5) /lpf Amorphous Sediment Present A (None Prsent) Urine Mucus Present A (None Prsent) PG Care Time/CCT Total # of Minutes Spent Total Time Spent with Patient: Total time spent is greater than 50% in coordination of care (as documented) at patient's floor/unit and/or counseling patient: (1) Exacerbation of Crohn's disease Digestive disease complication type: unspecified complication Qualified Code(s): K50.919 - Crohn's disease, unspecified, with unspecified complications
--- NOTE | 2019-03-29 09:38 | Cardiology Consultation ---
Date of Consultation March 29, 2019 Assessment & Plan (1) Nonspecific abnormal electrocardiogram (ECG) (EKG): 2. Tobacco abuse - currently smokes 1/2 ppd 3. Factor 5 Leiden - on chronic anticoagulation 4. Crohn's disease 5. Anxiety 6. Family history of premature CAD Patient is a 49-year-old female with no known cardiac history but with a strong family history of CAD as well as ongoing tobacco abuse who was admitted last evening in the setting of a Crohn's flare. She has been treated with Dilaudid, prednisone, Zofran, and normal saline IVF for her Crohn's flare with great improvement of her symptoms. ECG on arrival showed nonspecific ST-T wave abnormality, which improved with repeat ECG. Her cardiac enzymes have fortunately been negative. Her presentation is therefore not consistent with an ACS. Given her tobacco abuse and family history of CAD, it is recommended that the patient undergo further evaluation with a stress echocardiogram. The patient does not wish to remain in-patient for the study, though, therefore the stress echo will be arranged as an outpatient in the near future. Otherwise, no additional cardiovascular testing/intervention recommended at this time. Patient discussed with Dr. Lewis, and the plan was made in collaboration with him. Supervising Physician Co-Signing Physician Notes Patient care was discussed with Ms. Jordangunner as noted above. Patient's presentation was not highly suspicious for acute coronary syndrome. She declined inpatient noninvasive evaluation. I was at [facility] the day of consultation. When I was available to meet the patient, she had already been discharged by the primary service. History of Present Illness Reason for Consultation: EKG changes Requesting Physician: Dr. Quintanilla History of Present Illness Mrs. Olvera is a 49-year-old female with no known cardiac history who is being seen in consultation regarding EKG changes. The patient states that Monday night, she began vomiting and noted pain in her epigastric region as well as her back, which is typical for her Crohn's flares. Her symptoms continued into yesterday, and she also noted weakness and lightheadedness. She states that she began hyperventilating due to the pain in her stomach/back, and she noted some chest tightness while hyperventilating. She presented to the ED and has been treated with Dilaudid, prednisone, Zofran, and normal saline. She reports that she is currently feeling much better and is anxious for discharge. She states that she does not get any regular cardiovascular exercise, but she does stairs regularly and cares for her grandson during the day. She denies chest pain, other anginal type symptoms, or limiting dyspnea with exertion. She denies orthopnea, PND, or edema. She notes palpitations in association with anxiety. She denies syncope or presyncope. She denies abnormal bleeding such as melena, hematochezia, or hematuria. She denies cerebrovascular symptoms. Past medical history: 1. Crohn's disease 2. Factor 5 Leiden with recurrent arterial clots - on chronic anticoagulation therapy 3. Migraine headaches 4. Anxiety/depression 5. Cholecystectomy Family history: Her father underwent CABG at the age of 47; he from a RI at 67. Paternal grandfather and uncle in their 60s from heart disease. Social history: She is with 2 children and 1 grandchild. 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 She currently smokes 1/2 ppd and has smoked for 20 years. Occasional alcohol use. Allergies Allergy/AdvReac Type Severity Reaction Status Date / Time adhesive Allergy Unknown BANDAIDS-RED Verified 03/28/19 19:30 BLISTERS Penicillins Allergy Unknown UNKNOWN Verified 03/28/19 19:30 codeine AdvReac Unknown NAUSEA AND Verified 03/28/19 19:30 VOMITING Latex2 -Systemic Allergic Allergy Severe HIVES Uncoded 03/28/19 19:30 Response Patient History Medical History Crohn's ileitis Anticoagulant long-term use Arterial embolism and thrombosis Chronic cholecystitis Dysfunctional uterine bleeding Surgical History H/O colonoscopy Hx of cholecystectomy Social History Preferred Language: [place] Beliefs That Will Affect Care: None Current Living Situation: Spouse Feels Safe at Home: Yes Smoking Status: Current every day smoker Tobacco Type: cigarettes ; Hx Alcohol Use: Yes Alcohol type: wine Hx Substance Use: No Physical Exam Physical Exam: Constitutional: Alert, oriented, in no acute distress HEENT: Head is atraumatic and normocephalic. EOMs intact. Sclera non-icteric. Face is symmetric. No perioral cyanosis. Mucous membranes moist Neck: Supple, no JVD, no carotid bruits Pulmonary: Normal respiratory effort, clear to auscultation throughout Cardiac: Regular rate and rhythm, normal S1 and S2, no gallops, no rubs, no murmurs Extremities: No edema. No clubbing or cyanosis. Pulses 2+ and symmetric Abdomen: Normal bowel sounds, soft, non-tender, no abdominal masses palpated Skin: Chronic skin changes of right calf, otherwise normal skin color. No rash Neurological: Oriented to person, place, and time Results & Data Vital Signs (Past 12 Hours) Vital Signs Temp Pulse Pulse Resp BP BP BP 03/29/19 07:13 97.9 F 60 18 110/70 03/29/19 04:00 97.9 F 55 L 20 106/68 03/29/19 00:52 73 03/29/19 00:51 97.7 F 72 20 103/72 03/29/19 00:49 97.7 F 72 20 103/72 03/29/19 00:37 97.7 F 72 20 103/72 03/29/19 00:28 03/28/19 23:30 54 L 16 91/55 L 03/28/19 23:00 57 L 16 124/83 03/28/19 22:30 57 L 17 97/64 L 03/28/19 22:00 59 L 13 97/60 L 03/28/19 21:40 62 20 Pulse Ox Pulse Ox 03/29/19 07:13 96 03/29/19 04:00 99 03/29/19 00:52 03/29/19 00:51 96 03/29/19 00:49 96 03/29/19 00:37 96 03/29/19 00:28 96 03/28/19 23:30 03/28/19 23:00 03/28/19 22:30 03/28/19 22:00 03/28/19 21:40 Laboratory Results Laboratory Results WBC 13.24 K/uL (4.8-10.8) H 03/28/19 19:16 RBC 5.10 M/uL (4.2-5.4) 03/28/19 19:16 Hgb 16.4 g/dL (12.0-16.0) H 03/28/19 19:16 Hct 44.9 % (37-47) 03/28/19 19:16 MCV 88.0 fL (80-100) 03/28/19 19:16 MCH 32.2 pg (25-34) 03/28/19 19:16 MCHC 36.5 g/dL (32-36) H 03/28/19 19:16 RDW Std Deviation 43.0 fL (36.4-46.3) 03/28/19 19:16 RDW Coeff of Rain 13.3 % (11.5-14.5) 03/28/19 19:16 Plt Count 268 K/uL (130-400) 03/28/19 19:16 MPV 10.4 fL (7.4-10.4) 03/28/19 19:16 Immature Gran % (Auto) 0.4 % 03/28/19 19:16 Neut % (Auto) 81.3 % 03/28/19 19:16 Lymph % (Auto) 11.7 % 03/28/19 19:16 [place] % (Auto) 6.3 % 03/28/19 19:16 Eos % (Auto) 0.1 % 03/28/19 19:16 Baso % (Auto) 0.2 % 03/28/19 19:16 Immature Gran # (Auto) 0.05 K/uL (0.00-0.02) H 03/28/19 19:16 Neut # (Auto) 10.78 K/uL (1.4-6.5) H 03/28/19 19:16 Lymph # (Auto) 1.55 K/uL (1.2-3.4) 03/28/19 19:16 [place] # (Auto) 0.83 K/uL (0.11-0.59) H 03/28/19 19:16 Eos # (Auto) 0.01 K/uL (0-0.5) 03/28/19 19:16 Baso # (Auto) 0.02 K/uL (0-0.2) 03/28/19 19:16 PT 40.8 Seconds (9.0-12.0) H 03/29/19 06:42 INR 4.4 (0.9-1.1) H 03/29/19 06:42 Sodium 138 mmol/L (136-145) 03/29/19 06:42 Potassium 4.0 mmol/L (3.5-5.1) 03/29/19 06:42 Chloride 107 mmol/L (98-107) 03/29/19 06:42 Carbon Dioxide 23 mmol/L (21-32) 03/29/19 06:42 Anion Gap 8.0 (3-11) 03/29/19 06:42 BUN 12 mg/dl (7-18) 03/29/19 06:42 Creatinine 0.68 mg/dl (0.6-1.2) 03/29/19 06:42 Est Cr Clr Drug Dosing 123.0 ml/min 03/29/19 06:42 Est GFR ( Amer) 120.7 03/29/19 06:42 Est GFR (Non-Af Amer) 104.2 03/29/19 06:42 BUN/Creatinine Ratio 18.0 (10-20) 03/29/19 06:42 Glucose 128 mg/dl (70-99) H 03/29/19 06:42 Calcium 8.2 mg/dl (8.5-10.1) L 03/29/19 06:42 Total Bilirubin 0.8 mg/dl (0.2-1) 03/28/19 19:16 AST 14 U/L (15-37) L 03/28/19 19:16 ALT 21 U/L (12-78) 03/28/19 19:16 Alkaline Phosphatase 87 U/L (45-117) 03/28/19 19:16 Troponin I < 0.015 ng/ml (0-0.045) 03/29/19 06:42 Total Protein 8.5 gm/dl (6.4-8.2) H 03/28/19 19:16 Albumin 4.1 gm/dl (3.4-5.0) 03/28/19 19:16 Globulin 4.4 gm/dl (2.5-4.0) H 03/28/19 19:16 Albumin/Globulin Ratio 0.9 (0.9-2) 03/28/19 19:16 Lipase 91 U/L (73-393) 03/28/19 19:16 Urine Color Dark Yellow 03/29/19 05:28 Urine Appearance Cloudy (Clear) A 03/29/19 05:28 Urine pH 5.0 (4.5-7.5) 03/29/19 05:28 Ur Specific [place] 1.032 (1.000-1.030) H 03/29/19 05:28 Urine Protein Negative (Negative) 03/29/19 05:28 Urine Glucose (UA) Negative (Negative) 03/29/19 05:28 Urine Ketones 1+ (Negative) H 03/29/19 05:28 Urine Blood Negative (Negative) 03/29/19 05:28 Urine Nitrite Negative (Negative) 03/29/19 05:28 Urine Bilirubin Negative (Negative) 03/29/19 05:28 Urine Urobilinogen Negative (Negative) 03/29/19 05:28 Ur Leukocyte Esterase Negative (Negative) 03/29/19 05:28 Urine WBC (Auto) 1-5 /hpf (0-5) 03/29/19 05:28 Urine RBC (Auto) 0-4 /hpf (0-4) 03/29/19 05:28 U Hyaline Cast (Auto) 5-10 /lpf (0-5) H 03/29/19 05:28 U Epithel Cells (Auto) >30 /lpf (0-5) H 03/29/19 05:28 Urine Bacteria (Auto) Negative (Negative) 03/29/19 05:28 Amorphous Sediment Present (None Prsent) A 03/29/19 05:28 Urine Mucus Present (None Prsent) A 03/29/19 05:28 Diagnostic Findings EKG 03/28/19: Normal sinus rhythm at [address]-T wave abnormality. EKG 03/29/19: Sinus bradycardia at [address]-T wave abnormality not as pronounced compared to previous EKG. Telemetry: Normal sinus rhythm. PG Care Time/CCT Total # of Minutes Spent Total Time Spent with Patient: Total time spent is greater than 50% in coordination of care (as documented) at patient's floor/unit and/or counseling patient:
--- NOTE | 2019-03-29 11:35 | Discharge Summary ---
Date of Service March 29, 2019 Admission HPI Per Admitting Provider 49-year-old female with a known history of Crohn's disease presents with multiple episodes of nonbloody emesis that began the evening prior to admission (27 March) as well as epigastric discomfort. She says this feels identical to previous Crohn's flares. She says that she had a Crohn's flare earlier this month but prior to this did not have a single flare this year or through 2018. Because of this she has not been on any maintenance medications. In the past she was on Humira but says that it made her feel quite tired. She is followed by Dr. Chang of gastroenterology. She notes no present diarrhea but says it frequently will start within 24 hours of vomiting onset. Denies any fevers or feeling of generalized illness. She has no other particular focal concerns. On review of her past medical history, she has a known history of anxiety and describes frequent panic attacks. She says she always gets panic attacks with Crohn's flares and mentions about 4+ episodes in the past 24 hours. She says these episodes consist of being very anxious and feeling short of breath. However, she denies any overt chest pain throughout this time. At time of this H&P, she says overall she feels quite calm and denies any chest pain or shortness of breath. 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 - Past surgical history includes cholecystectomy. - Social history includes smoking 1/2 pack/day for over 20 years. Denies alcohol use. Lives at home. Principal Diagnosis Crohn's flare , Abdominal pain Discharge Exam Constitutional WD/WN, vitals as above Eyes PERRL, conjunctivae normal, anicteric sclerae ENMT external ear and nose normal, oropharynx normal Neck trachea midline, no thyromegaly Respiratory normal respiratory effort, lungs clear to auscultation Cardiovascular RRR, no murmur, no edema Gastrointestinal (Abdomen) normal bowel sounds, soft, nontender, no hepatosplenomegaly Musculoskeletal Extremities: extremities normal to inspection; no cyanosis and no clubbing Skin no rashes, warm and dry Neurologic moves all extremities and awake; no focal motor deficits Psychiatric A+Ox3, euthymic affect Discharge Data Allergies Allergy/AdvReac Type Severity Reaction Status Date / Time adhesive Allergy Unknown BANDAIDS-RED Verified 03/28/19 19:30 BLISTERS Penicillins Allergy Unknown UNKNOWN Verified 03/28/19 19:30 codeine AdvReac Unknown NAUSEA AND Verified 03/28/19 19:30 VOMITING Latex2 -Systemic Allergic Allergy Severe HIVES Uncoded 03/28/19 19:30 Response Consultations 03/28/19 22:26 ED Decision to Admit Stat 03/29/19 00:28 Consult Cardiology Routine 03/29/19 08:44 Consult Gastroenterology Routine Ordered Studies 03/28/19 18:46 CT abd pelvis wo con Stat Hospital Course (1) Vomitin-year-old female was admitted on 28 March 2019 for vomiting and likely Crohn's flair. Vomiting, likely Crohn's flare: Patient notes the onset of epigastric regional abdominal pain and vomiting about 24 hours prior to admission. Says it feels very much like previous Crohn's flares. Most recent was earlier this month but otherwise has not had any for over [address] Chang of gastroenterology. Denies fevers, generalized abdominal pain, diarrhea, or other focal concerns. - In ED, afebrile, borderline bradycardic, rather normotensive, with normal room SpO2. WBC 13. Electrolytes, LFTs, and lipase okay. CT a/p non-con was suggestive of Crohn's disease without abscess or free air. - In ED, treated with Dilaudid, prednisone 40 mg p.o., Zofran, and normal saline IVF. She had a remarkable improvement in her symptoms overnight and had no abdominal pain, was tolerating a clear liquids diet on day of discharge Appreciate GI consultation - Will keep on prednisone 50 mg daily upon discharge. -f/u with GI within 1 week after dc with plans to restart biologic therapy Panic attacks: Patient says that she frequently gets panic attacks, including virtually always with her Crohn's flares. 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 During that time she feels very anxious and has shortness of breath. However, on resolution she denies present / interval CP or SOB. - In ED, EKG was NSR 60 with T wave inversions in III, aVF, and V3 (different than most recent comparison in January 2017). Troponin at 1916 was negative. 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 Admit INR 4.2, up to 4.4 on day of discharge -continue to hold coumadin tonight, then restart the day after discharge as has been on this chronic dose for many years with therapeutic INRs -check INR on Monday - Anxiety: Continue home sertraline. Stable for dc to home (2) Exacerbation of Crohn's disease: (3) Panic attack: (4) Chronic thrombosis of both iliac veins: (5) Supratherapeutic INR: (6) Anxiety: Total Time Total Time Spent Total Time Spent (In Minutes): >30 min Total Time Includes: Examination of the Patient, Discharge Planning and Medication Reconciliation Discharge Plan Discharge Items Patient Disposition: Home - Self-Care Reason For Visit: [place] Discharge Diagnosis: Crohn's Flare, Abdominal pain Condition: Good Discharge Goals: Decrease discomfort, Diagnostic testing, Improve disease control, Learn about illness and Therapeutic intervention Activity: Resume your previous activity Bathing: No limitations Non-emergency contact: Primary Care Provider and Funeral Driver Call non-emergency contact if: you have any medication questions, your symptoms worsen, your pain is not controlled, your pain is worsening, your pain is unusual for you, your pain is concerning for you, you have a fever and your temperature is above 100.5 Follow-up/Referrals: Steve Chang DO [Physician] - (Dr. Chang's office will contact you with your follow up appointment for sometimes next week.) Last Santacruz MD [Physician] - (Dr. Santacruz's office will be contacting you about arranging for an outpatient cardiac stress test ) Zeke Miller MD [Primary Care Provider] - (Please call for follow up appointment within 1-2 weeks. ) Diet: Low Fiber Diet Comment: Advance diet to soft, low fiber by tomorrow as tolerated Addtl Provider Instructions: You were admitted with a flare of your Crohn's disease with inflammation in your small bowel causing abdominal pain. You had great improvemetn with starting prednisone and should remain on this at 50mg once daily. Your GI doctor will taper this down for you over the next 8 weeks. Please follow up with GI next week as will be scheduled for you. You had an abnormal EKG and were seen by the Cardiology team. An outpatient cardiac stress test will be scheduled for you. If you develop chest pain, shortness of breath, severe abdominal pain again, please return immediately to the ER. It is very important for you to QUIT SMOKING as we discussed. Please HOLD your coumadin again tonight and then restart your usual dose tomorrow, 03/30/19. Please have your INR checked on Monday04/01/19. Prescriptions: New prednisone 20 mg tablet 50 mg PO DAILY Qty: 75 RF: 0 Continued warfarin [Jantoven] 10 mg tablet 12.5 mg PO DAILY RF: 0 No Action sertraline [Zoloft] 100 mg tablet 150 mg PO DAILY Qty: 45 RF: 5 ondansetron 4 mg tablet,disintegrating 4 mg PO QID PRN (Reason: nausea and vomiting) Qty: 24 RF: 3 Stand-Alone Forms: [facility] Discharge Orders: Discharge Order (Routine); Ordered 03/29/19 Ordered By: Kerry Rainey Admission Data Admit Date/Time: 03/28/19 23:33 Attending Provider: Kerry Rainey Admit Provider: Kan Quintanilla Primary Care Provider: Zeke Miller Other Providers: Steve Chang ; Rick Lewis Service: Telemetry Medical Other Interventions: Discharge Summary Assessment (RN) Last Done: 03/29/19 11:38 Pending Studies at Discharge: No DC Date/Time DO NOT enter until pt leaves facility: 03/29/19 12:09
[2019-03-29] MEDS ORDERED: predniSONE 50 MG TAB PO SCH (22:00)
== END 2019-03-29 12:09 | disposition home or self-care (01) ==
LOC: 2N 18:19 → ED 18:19 → SUATTDRO 23:33 → 2N 03-29 00:05
DX: Z88.5 Allergy status to narcotic agent; Z91.040 Latex allergy status; Z88.0 Allergy status to penicillin; F41.9 Anxiety disorder, unspecified; K50.90 Crohn's disease, unspecified, without complications; Z79.01 Long term (current) use of anticoagulants; F17.210 Nicotine dependence, cigarettes, uncomplicated; D68.51 Activated protein C resistance

== ENCOUNTER 2019-09-12 16:12 | Inpatient (IN) ==
[2019-09-12] MEDS ORDERED: ONDANSETRON INJ 2 MG/ML 2 ML VIAL IV STA ×2 (16:35→21:10)
[2019-09-12] MEDS ORDERED: HYDROmorphone INJ 1 MG/ML SYRINGE IV STA ×2 (16:36→20:41)
--- NOTE | 2019-09-12 16:37 | Emergency Department Note ---
History of Present Illness General Chief complaint: Abdominal Pain Stated complaint: CROHNS FLARE, NAUSEA Time Seen by Provider: 09/12/19 16:26 History of Present Illness Maximum Pain Intensity: 10 This is a 49-year-old female that presents to the emergency department via private vehicle accompanied by male with complaints of "Crohn's flare, nausea". The patient notes a history of Crohn's disease and often experiences flares. She states that most recently her symptoms began yesterday around 10 PM. She notes that she began with some abdominal pain and vomiting. She states that she is scheduled for an infusion of Entyvio tomorrow. She states that this is similar to previous exacerbations of Crohn's. She denies any blood in the stool. She does not think that she has had a bowel movement since the onset of this last night. No diarrhea. She does that she is currently anticoagulated on warfarin for a DVT. No chest pain or shortness of breath. No fevers. There are associated chills. She tried taking Zofran x2 at home without relief. Home Medications Home Medications Medication Instructions Recorded Confirmed Type lorazepam 0.5 mg PO DAILY PRN 09/12/19 09/12/19 History sertraline [Zoloft] 150 mg PO HS 09/12/19 09/12/19 History warfarin [Jantoven] 10 mg PO DAILY 09/12/19 09/12/19 History Allergies Allergy/AdvReac Type Severity Reaction Status Date / Time latex Allergy Severe Hives Verified 09/12/19 16:44 adhesive Allergy Unknown BANDAIDS-RED Verified 09/12/19 16:42 BLISTERS Penicillins Allergy Unknown Unknown Verified 09/12/19 16:42 codeine AdvReac Unknown NAUSEA AND Verified 09/12/19 16:42 VOMITING Past Med/Surg History Medical History Anticoagulant long-term use Arterial embolism and thrombosis Chronic cholecystitis Crohn's ileitis Dysfunctional uterine bleeding Panic disorder Surgical History H/O colonoscopy Hx of cholecystectomy Family History Father Heart disease Diabetes Hypertension Mother Colonic polyp Diabetes Grandmother Diabetes Social History Preferred Language: Yoruba Communication Ability: Effective Corporate Strategy Intern Required: No Beliefs That Will Affect Care: None Current Living Situation: Spouse Feels Safe at Home: Yes Smoking Status: Current every day smoker Tobacco Type: cigarettes ; Hx Alcohol Use: Yes Alcohol type: wine Hx Substance Use: No Review of Systems A total of 10 systems reviewed and were otherwise negative Physical Exam Vital Signs Vital Signs - 24 hr 09/12/19 16:22 09/12/19 17:02 09/12/19 17:03 Temperature 36.5 C Temperature Source Oral Pulse Rate 86 65 Pulse Rate from SpO2 Sensor Respiratory Rate 24 14 Respiratory Effort / Characteristics Non-Labored Spontaneous Respiratory Depth Normal Respiratory Pattern Regular Blood Pressure 133/83 Blood Pressure Mean 99 Pulse Oximetry 99 99 Oxygen Delivery Method Room Air Room Air Sepsis Recent Fever Within 48 Hours No Sepsis New/Unexplained Change in Mental Status No Sepsis Action Taken by Nursing No Action Required 09/12/19 17:10 09/12/19 17:30 09/12/19 18:09 Temperature Temperature Source Pulse Rate 67 64 80 Pulse Rate from SpO2 Sensor 67 65 Respiratory Rate 21 17 19 Respiratory Effort / Characteristics Respiratory Depth Respiratory Pattern Blood Pressure 124/65 Blood Pressure Mean 76 Pulse Oximetry 97 99 Oxygen Delivery Method Room Air Room Air Sepsis Recent Fever Within 48 Hours Sepsis New/Unexplained Change in Mental Status Sepsis Action Taken by Nursing 09/12/19 18:30 09/12/19 18:31 09/12/19 19:00 Temperature Temperature Source Pulse Rate 63 72 62 Pulse Rate from SpO2 Sensor 63 71 60 Respiratory Rate 21 14 12 Respiratory Effort / Characteristics Respiratory Depth Respiratory Pattern Blood Pressure 95/71 L 126/89 Blood Pressure Mean 76 108 Pulse Oximetry 95 97 97 Oxygen Delivery Method Room Air Room Air Sepsis Recent Fever Within 48 Hours Sepsis New/Unexplained Change in Mental Status Sepsis Action Taken by Nursing 09/12/19 19:30 09/12/19 20:00 Temperature Temperature Source Pulse Rate 55 L 56 L Pulse Rate from SpO2 Sensor 52 L 56 L Respiratory Rate 19 12 Respiratory Effort / Characteristics Respiratory Depth Respiratory Pattern Blood Pressure 108/66 Blood Pressure Mean 82 Pulse Oximetry 95 94 Oxygen Delivery Method Sepsis Recent Fever Within 48 Hours Sepsis New/Unexplained Change in Mental Status Sepsis Action Taken by Nursing VITAL SIGNS - Vital signs and nursing notes were reviewed. Stable and afebrile. GENERAL -49-year-old female higher appearing stated age who is in no acute distress but appears to be in pain, and is lying in the position on the examination bed. Communicates well with provider and answers questions appropriately. SKIN - Without rashes. No meningeal or petechial rash. HEAD - NC/AT. EYES - PERRL with EOMI bilaterally. Sclera anicteric. EARS - No deformities of external structures noted on gross examination bilaterally NOSE - Midline and without cyanosis. No epistaxis or purulent drainage noted. MOUTH/OROPHARYNX - Without perioral cyanosis. NECK - Neck with FROM. LUNGS - Chest wall symmetric without accessory muscle use, intercostals retractions, or central cyanosis. Normal vesicular breath sounds CTA B/L. No wheezes, rales, or rhonchi appreciated. CARDIAC - RRR with S1/S2. No murmur, rubs, or gallops appreciated. ABDOMEN - Abdominal contour normal without pulsations or visible masses. BS normoactive all four quadrants. Diffuse upper abdominal tenderness noted. A bdomen is soft and nonrigid. No palpable masses, hepatosplenomegaly, or ascites noted. EXTREMITIES - No clubbing or peripheral cyanosis. +5/5 strength noted in UE/LE bilaterally. NEUROLOGIC - Cranial nerves II through XII grossly intact. PSYCH - A&O, and cooperates fully with examiner. Pt is very pleasant and interacts well with examiner. Course Administered Medications Methylprednisolone 40 mg/ (Syringe) 0.64 mls @ 1.5 mls/min IV Q8H [facility] Stop: 10/12/19 21:29 Last Admin: 09/12/19 22:16 Dose: 1.5 mls/min Documented by: [id number] Heparin Sodium/Dextrose (Heparin Sodium/Dextrose) 25,000 units in 500 mls @ 28 mls/hr IV .[id number] [facility]; Protocol Stop: 10/12/19 22:32 Last Admin: 09/13/19 00:45 Dose: 1,400 units/hr, 28 mls/hr Documented by: [id number] Cosigned by: [id number] Lactated Ringer's (Lr) 1,000 mls @ 80 mls/hr IV .[id number] [facility] Stop: 10/12/19 22:59 Last Admin: 09/13/19 00:12 Dose: 80 mls/hr Documented by: [id number] Ioversol (Optiray 320 100ml) 94 ml IV ONCE PRN PRN Reason: Interaction Checking Stop: 09/16/19 17:59 Last Admin: 09/12/19 18:01 Dose: 94 ml Documented by: [id number] Discontinued Medications Heparin Sodium/Dextrose () 1 ea IV Q15M [facility]; Protocol Stop: 09/13/19 02:00 Last Admin: 09/13/19 01:54 Dose: Not Given Documented by: [id number] Hydromorphone HCl (Dilaudid) 1 mg IV NOW STA Stop: 09/12/19 16:37 Last Admin: 09/12/19 17:10 Dose: 1 mg Documented by: [id number] Hydromorphone HCl (Dilaudid) 0.5 mg IV NOW STA Stop: 09/12/19 17:46 Last Admin: 09/12/19 17:56 Dose: 0.5 mg Documented by: [id number] Hydromorphone HCl (Dilaudid) 1 mg IV NOW STA Stop: 09/12/19 20:42 Last Admin: 09/12/19 21:07 Dose: 1 mg Documented by: [id number] Sodium Chloride (Nss 1000ml) 1,000 mls @ 999 mls/hr IV .Q1H1M [facility] Stop: 09/12/19 17:45 Last Infusion: 09/12/19 18:12 Dose: 0 mls/hr Documented by: [id number] Admin: 09/12/19 17:11 Dose: 999 mls/hr Documented by: [id number] Promethazine HCl (Phenergan) 12.5 mg in 50.5 mls @ 202 mls/hr IV NOW STA Stop: 09/12/19 22:00 Last Infusion: 09/12/19 22:12 Dose: 0 mls/hr Documented by: [id number] Admin: 09/12/19 21:54 Dose: 202 mls/hr Documented by: [id number] Ondansetron HCl (Zofran) 4 mg IV NOW STA Stop: 09/12/19 16:36 Last Admin: 09/12/19 17:10 Dose: 4 mg Documented by: [id number] Ondansetron HCl (Zofran) Confirm Administered Dose 4 mg .ROUTE .STK-MED ONE Stop: 09/12/19 21:07 Last Admin: 09/12/19 21:07 Dose: 4 mg Documented by: [id number] Ondansetron HCl (Zofran) 4 mg IV NOW STA Stop: 09/12/19 21:11 Last Admin: 09/12/19 21:16 Dose: Not Given Documented by: [id number] Medical Decision Making Laboratory Data Result diagrams: 09/12/19 17:00 09/12/19 17:00 Lab Results 09/12/19 09/12/19 09/12/19 Range/Units 17:00 17:00 17:00 WBC 11.08 H (4.8-10.8) K/uL RBC 4.99 (4.2-5.4) M/uL Hgb 16.2 H (12.0-16.0) g/dL Hct 44.9 (37-47) % MCV 90.0 (80-100) fL MCH 32.5 (25-34) pg MCHC 36.1 H (32-36) g/dL RDW Std Deviation 44.7 (36.4-46.3) fL RDW Coeff of Rain 13.6 (11.5-14.5) % Plt Count 240 (130-400) K/uL MPV 10.8 H (7.4-10.4) fL Immature Gran % (Auto) 0.3 % Neut % (Auto) 77.3 % Lymph % (Auto) 16.2 % Charles % (Auto) 6.0 % Eos % (Auto) 0.1 % Baso % (Auto) 0.1 % Immature Gran # (Auto) 0.03 H (0.00-0.02) K/uL Neut # (Auto) 8.56 H (1.4-6.5) K/uL Lymph # (Auto) 1.80 (1.2-3.4) K/uL Charles # (Auto) 0.67 H (0.11-0.59) K/uL Eos # (Auto) 0.01 (0-0.5) K/uL Baso # (Auto) 0.01 (0-0.2) K/uL PT 15.9 H (9.0-12.0) Seconds INR 1.6 H (0.9-1.1) APTT 27.2 (21.0-31.0) Seconds PTT Ratio 1.0 Sodium 138 (136-145) mmol/L Potassium 3.6 (3.5-5.1) mmol/L Chloride 108 H (98-107) mmol/L Carbon Dioxide 21 (21-32) mmol/L Anion Gap 9.0 (3-11) BUN 16 (7-18) mg/dl Creatinine 0.81 (0.6-1.2) mg/dl Est Cr Clr Drug Dosing 106.8 ml/min Est GFR ( Amer) 100.2 Est GFR (Non-Af Amer) 86.5 BUN/Creatinine Ratio 20.0 (10-20) Glucose 116 H (70-99) mg/dl Calcium 9.5 (8.5-10.1) mg/dl Magnesium 2.1 (1.8-2.4) mg/dl Total Bilirubin 0.8 (0.2-1) mg/dl AST 20 (15-37) U/L ALT 30 (12-78) U/L Alkaline Phosphatase 78 (45-117) U/L Troponin I < 0.015 (0-0.045) ng/ml Total Protein 8.4 H (6.4-8.2) gm/dl Albumin 4.1 (3.4-5.0) gm/dl Globulin 4.3 H (2.5-4.0) gm/dl Albumin/Globulin Ratio 1.0 (0.9-2) Lipase 66 L (73-393) U/L Imaging Data Radiologist's Impression: ABDOMEN AND PELVIS CT WITH IV CONTRAST CT DOSE: 1050.74 mGycm HISTORY: Generalized Abdominal pain, vomiting, Crohn's disease TECHNIQUE: Multiaxial CT images of the abdomen and pelvis were performed following the use of intravenous contrast. A dose lowering technique was utilized adhering to the principles of ALARA. COMPARISON STUDY: Abdomen and pelvis CT 03/28/2019. FINDINGS: The lung bases are clear. No pneumoperitoneum. No pneumatosis. Tiny hiatus hernia. Cholecystectomy. Mild central intrahepatic bile duct dilatation, unchanged. This is likely due to the patient's postcholecystectomy state. The pancreas, spleen, adrenal glands, and kidneys are unremarkable. The bladder, uterus, bilateral adnexa are within normal limits. Trace pelvic free fluid. Scattered colonic diverticula. The colon is decompressed. Normal appendix. No retroperitoneal lymphadenopathy. Atrophic infrarenal IVC see and common iliac veins with associated calcification. This favors chronic thrombus. Venous flow appears to be primarily from the left gonadal vein. This remains unchanged. Mild thickening and adjacent fat stranding involving the distal 20 cm of the terminal ileum. There is also a focal stricture at the distal ileum seen within the deep pelvis best seen on image 81. This appears to account for the transition point resulting in the small bowel obstruction. The loops of bowel proximal to this area of stricture or distended and fluid-filled measuring up to 3.4 cm in diameter. This has progressed. There are a few additional scattered small bowel loops which are slightly thickened and demonstrate mild adjacent inflammatory change and edema. Therefore, these findings are consistent with acute on chronic Crohn's disease. No definite fistula or abscess identified at this time. IMPRESSION: 1. Acute on chronic Crohn's disease demonstrated multiple thickened loops of small bowel most pronounced within the distal ileum. In addition, there is a focal stricture within the distal ileum within the deep pelvis resulting in a small bowel obstruction. This has progressed in the interval. 2. Trace pelvic free fluid. 3. Chronic thrombus seen throughout the infrarenal IVC and common iliac veins, unchanged. A 4. Additional findings as described above. ACT 112: Negative or not required by law. Electronically signed by: Geo Gil M.D. 09/12/2019 6:22 PM MDM Narrative Patient was seen and evaluated as above in room C 11. Review was performed of nursing notes and vital signs. After obtaining a thorough history and physical examination the above work up was performed. She presents to us today with abdominal pain and vomiting that began last night. She has a history of SBO and Crohn's disease. She has never had to have abdominal surgery though for the SBOs. Patient tried to take Zofran at home with minimal relief. She was medicated here with IV fluids, Dilaudid, and Zofran. CT scan was obtained. Results as above. There is acute on chronic Crohn's disease with SBO. Labs reveal a mild leukocytosis without anemia. No emergent metabolic disturbance. Troponin negative. EKG was obtained given the patient's presentation and this reveals normal sinus rhythm at a rate of 64 bpm. QTc 44. There is no ST e levation. Patient was educated upon todays findings. She has required multiple rounds of pain medication and antiemetics here. I do believe that further evaluation and management in the inpatient setting is warranted. I did discuss the SBO findings with the attending physician as well as the on-call general surgeon, Dr. Pace. At this time we are in agreement that there is no emergent surgical intervention required however inpatient management is recommended. It was also recommended to have GI consulted. A page was placed to the GI on-pcmh specialist at 1856 PM. I did not hear back from them. I then discussed the case with the on-call hospitalist, Dr. Bell. I informed him that to this point I have not heard back from GI. Please refer to further documentation regarding the patient's stay. Case was discussed with the attending physician. In the evaluation and treatment of this patient the following differential diagnoses were entertained: Bowel obstruction, perforation, Crohn's disease, pancreatitis, MO, PE, among others. Impression & Plan Exacerbation of Crohn's disease, Small bowel obstruction Discharge Plan Visit Data *Final* Discharge Date/Time: 09/12/19 21:24 Chief Complaint: Abdominal Pain Stated Complaint: CROHNS FLARE, NAUSEA ED Provider: Alan Valenzuela ED Midlevel Provider: Marino Griggs Discharge Problem: Exacerbation of Crohn's disease, Small bowel obstruction Patient Disposition: Admitted As Inpatient Condition: Good Discharge Instructions Interventions: ED Discharge Assessment Last Done: 09/12/19 21:24
[2019-09-12] MEDS ORDERED: SODIUM CHLORIDE 0.9% 1000ML 1,000 ML IV SCH (16:45)
[2019-09-12 17:11] LABS: Basophils # (auto) 0.01 K/uL (0-0.2); Basophils % (auto) 0.1 %; Eosinophils # (auto) 0.01 K/uL (0-0.5); Eosinophils % (auto) 0.1 %; Hematocrit (blood only) 44.9 % (37-47); Hemoglobin 16.2 g/dL (12.0-16.0); Immature Granulocytes # (auto) 0.03 K/uL (0.00-0.02); Immature Granulocytes % (auto) 0.3 %; Lymphocytes % (auto) 16.2 %; Mean Corpuscular Hemoglobin 32.5 pg (25-34); Mean Corpuscular Hgb Conc 36.1 g/dL (32-36); Mean Platelet Volume 10.8 fL (7.4-10.4); Monocytes # (auto) 0.67 K/uL (0.11-0.59); Neutrophils # (auto) 8.56 K/uL (1.4-6.5); Neutrophils % (auto) 77.3 %; Platelet Count 240 K/uL (130-400); RDW Coefficient of Variation 13.6 % (11.5-14.5); RDW Standard Deviation 44.7 fL (36.4-46.3); Red Blood Count 4.99 M/uL (4.2-5.4); White Blood Count 11.08 K/uL (4.8-10.8)
[2019-09-12 17:35] LABS: Alanine Aminotransferase 30 U/L (12-78); Albumin Level 4.1 gm/dl (3.4-5.0); Alkaline Phosphatase 78 U/L (45-117); Aspartate Aminotransferase 20 U/L (15-37); Bilirubin,Total 0.8 mg/dl (0.2-1); Blood Urea Nitrogen 16 mg/dl (7-18); Calcium 9.5 mg/dl (8.5-10.1); Carbon Dioxide 21 mmol/L (21-32); Chloride 108 mmol/L (98-107); Creatinine Clr Calc Pharmacy 106.8 ml/min; Est GFR (African American) 100.2; Est GFR (Non-African American) 86.5; Globulin 4.3 gm/dl (2.5-4.0); Glucose 116 mg/dl (70-99); Lipase 66 U/L (73-393); Magnesium 2.1 mg/dl (1.8-2.4); Potassium 3.6 mmol/L (3.5-5.1); Sodium 138 mmol/L (136-145); Total Protein 8.4 gm/dl (6.4-8.2); Troponin I < 0.015 ng/ml (0-0.045)
[2019-09-12 17:38] LABS: INR 1.6 (0.9-1.1); Partial Thromboplastin Time 27.2 Seconds (21.0-31.0); Prothrombin Time 15.9 Seconds (9.0-12.0)
[2019-09-12] MEDS ORDERED: HYDROmorphone INJ 0.5 MG/0.5 ML SYR IV STA (17:45)
[2019-09-12] MEDS ORDERED: IOVERSOL 100ml IV PRN (18:00)
--- NOTE | 2019-09-12 18:23 | CT Scan Report ---
ABDOMEN AND PELVIS CT WITH IV CONTRAST CT DOSE: 1050.74 mGycm HISTORY: Generalized Abdominal pain, vomiting, Crohn's disease TECHNIQUE: Multiaxial CT images of the abdomen and pelvis were performed following the use of intrave nous contrast. A dose lowering technique was utilized adhering to the principles of ALARA. COMPARISON STUDY: Abdomen and pelvis CT 03/28/2019. FINDINGS: The lung bases are clear. No pneumoperitoneum. No pneumatosis. Tiny hiatus hernia. Cholecys tectomy. Mild central intrahepatic bile duct dilatation, unchanged. This is likely due to the patient 's postcholecystectomy state. The pancreas, spleen, adrenal glands, and kidneys are unremarkable. The bladder, uterus, bilateral adnexa are within normal limits. Trace pelvic free fluid. Scattered colon ic diverticula. The colon is decompressed. Normal appendix. No retroperitoneal lymphadenopathy. Atrop hic infrarenal IVC see and common iliac veins with associated calcification. This favors chronic thro mbus. Venous flow appears to be primarily from the left gonadal vein. This remains unchanged. Mild th ickening and adjacent fat stranding involving the distal 20 cm of the terminal ileum. There is also a focal stricture at the distal ileum seen within the deep pelvis best seen on image 81. This appears to account for the transition point resulting in the small bowel obstruction. The loops of bowel prox imal to this area of stricture or distended and fluid-filled measuring up to 3.4 cm in diameter. This has progressed. There are a few additional scattered small bowel loops which are slightly thickened and demonstrate mild adjacent inflammatory change and edema. Therefore, these findings are consistent with acute on chronic Crohn's disease. No definite fistula or abscess identified at this time. IMPRESSION: 1. Acute on chronic Crohn's disease demonstrated multiple thickened loops of small bowel most pronoun [place] within the distal ileum. In addition, there is a focal stricture within the distal ileum within t he deep pelvis resulting in a small bowel obstruction. This has progressed in the interval. 2. Trace pelvic free fluid. 3. Chronic thrombus seen throughout the infrarenal IVC and common iliac veins, unchanged. A 4. Additi onal findings as described above. ACT 112: Negative or not required by law. Electronically signed by: Geo Gil M.D. 09/12/2019 6:22 PM
--- NOTE | 2019-09-12 20:13 | History & Physical Report ---
Date of Service September 12, 2019 Assessment & Plan (1) Small bowel obstruction: Calista Olvera is a 49y/o F with PMH significant for Crohn's disease, Factor V leiden deficiency, chronic thrombosis of bilateral iliac veins, and anxiety; presented to the emergency room for worsening nausea and vomiting in the absence of bowel movements similar to how she felt with a previous small bowel obstruction. Small bowel obstruction: - CT demonstrated multiple thickened loops of small bowel and a focal stricture within the distal ileum - likely continued complication of existing Crohn's; previously had similar episode in March of 2019 - Consulted GI: appreciate recs - Consulted Gen Surg: appreciate recs - received two doses of dilaudid due to continued severe abdominal pain; will try to hold continued narcotics due to decreased motility effects - IV toradol and IV acetaminophen PRN continued pain and breakthrough pain - zofran IV PRN for maintained nausea - NPO now Crohn's disease: - patient receiving Entyvio every 8 weeks; last received on 07/15 - scheduled for infusion tomorrow Factor V leiden deficiency: - missed two doses of Warfarin; will hold until patient is able to further tolerate intake - start Heparin drip given patient's inability to tolerate PO intake Chronic thrombosis of both iliac veins: - CT demonstrated an unchanged chronic thrombus - IV heparin as above Anxiety: - patient takes PO 0.5mg lorazepam daily - IV ativan PRN available Diet: NPO with ice chips and sips DVT ppx: LMWH drip Code: Full code (2) Crohn's disease of ileum with complication: (3) Factor V deficiency: (4) Chronic thrombosis of both iliac veins: (5) Anxiety: History of Present Illness Chief Complaint: small bowel obstruction Primary Care Provider: Zeke Miller MD Calista Olvera is a 49y/o F with PMH significant for Crohn's disease, Factor V leiden deficiency, chronic thrombosis of bilateral iliac veins, and anxiety; presented to the emergency room for worsening nausea and vomiting in the absence of bowel movements similar to how she felt with a previous small bowel obstruction. Started one day ago, and the pain has consistently increased over the last 24hours, remains nauseated; has not had a bowel movement since 09/10. Tried to eat yesterday but had increased discomfort and then ultimately vomited. Took zofran twice at home with out improvement; has been able to keep down ice chips without vomiting but the nausea has persisted. Was unable to take her warfarin prior the last two days. Allergies Allergy/AdvReac Type Severity Reaction Status Date / Time latex Allergy Severe Hives Verified 09/12/19 16:44 adhesive Allergy Unknown BANDAIDS-RED Verified 09/12/19 16:42 BLISTERS Penicillins Allergy Unknown Unknown Verified 09/12/19 16:42 codeine AdvReac Unknown NAUSEA AND Verified 09/12/19 16:42 VOMITING Home Medications Home Medications Medication Instructions Recorded Confirmed Type lorazepam 0.5 mg PO DAILY PRN 09/12/19 09/12/19 History sertraline [Zoloft] 150 mg PO HS 09/12/19 09/12/19 History warfarin [Jantoven] 10 mg PO DAILY 09/12/19 09/12/19 History Past Med/Surg History Medical History Anticoagulant long-term use Arterial embolism and thrombosis Chronic cholecystitis Crohn's ileitis Dysfunctional uterine bleeding Panic disorder Surgical History H/O colonoscopy Hx of cholecystectomy Family History Father Heart disease Diabetes Hypertension Mother Colonic polyp Diabetes Grandmother Diabetes Social History Preferred Language: Upper Sorbian Beliefs That Will Affect Care: None Current Living Situation: Spouse Feels Safe at Home: Yes Smoking Status: Current every day smoker Tobacco Type: cigarettes ; Hx Alcohol Use: Yes Alcohol type: wine Hx Substance Use: No Review of Systems Constitutional: no fever, no chills and no sweats Eyes: no diplopia, no discharge and no spots in vision Ear, Nose, Mouth, Throat: no ear discharge, no tinnitus, no nasal congestion and no nasal discharge Respiratory: no cough, no dyspnea and no wheezing Cardiovascular: no chest pain, no palpitations and no edema Gastrointestinal: as per Subjective / HPI Genitourinary: no difficulty urinating, no urinary frequency and no hematuria Physical Exam Constitutional: WD/WN, vitals as above Eyes: PERRL, conjunctivae normal, anicteric sclerae Respiratory: normal respiratory effort, lungs clear to auscultation Cardiovascular: Rate/Rhythm: regular rate and regular rhythm Heart Sounds: normal S1 and normal S2; no gallop, no murmur and no cardiac rub Vessels: no JVD Gastrointestinal (Abdomen): Inspection/Auscultation: normal bowel sounds Percussion/Palpation: + abdomen tender (guera-umbilical), + guarding and abdomen soft; no hepatosplenomegaly, no hernia and no abdominal mass Skin: no rashes, warm and dry Results & Data Vital Signs (Past 12 Hours) Vital Signs Temp Pulse Resp BP Pulse Ox 09/12/19 20:00 56 L 12 108/66 94 09/12/19 19:30 55 L 19 95 09/12/19 19:00 62 12 126/89 97 09/12/19 18:31 72 14 95/71 L 97 09/12/19 18:30 63 21 95 09/12/19 18:09 80 19 09/12/19 17:30 64 17 99 09/12/19 17:10 67 21 124/65 97 09/12/19 17:03 65 14 09/12/19 17:02 99 09/12/19 16:22 36.5 C 86 24 133/83 99 Laboratory Results 09/12/19 09/12/19 09/12/19 Range/Units 17:00 17:00 17:00 WBC 11.08 H (4.8-10.8) K/uL RBC 4.99 (4.2-5.4) M/uL Hgb 16.2 H (12.0-16.0) g/dL Hct 44.9 (37-47) % MCV 90.0 (80-100) fL MCH 32.5 (25-34) pg MCHC 36.1 H (32-36) g/dL RDW Std Deviation 44.7 (36.4-46.3) fL RDW Coeff of Rain 13.6 (11.5-14.5) % Plt Count 240 (130-400) K/uL MPV 10.8 H (7.4-10.4) fL Immature Gran % (Auto) 0.3 % Neut % (Auto) 77.3 % Lymph % (Auto) 16.2 % [place] % (Auto) 6.0 % Eos % (Auto) 0.1 % Baso % (Auto) 0.1 % Immature Gran # (Auto) 0.03 H (0.00-0.02) K/uL Neut # (Auto) 8.56 H (1.4-6.5) K/uL Lymph # (Auto) 1.80 (1.2-3.4) K/uL [place] # (Auto) 0.67 H (0.11-0.59) K/uL Eos # (Auto) 0.01 (0-0.5) K/uL Baso # (Auto) 0.01 (0-0.2) K/uL PT 15.9 H (9.0-12.0) Seconds INR 1.6 H (0.9-1.1) APTT 27.2 (21.0-31.0) Seconds PTT Ratio 1.0 Sodium 138 (136-145) mmol/L Potassium 3.6 (3.5-5.1) mmol/L Chloride 108 H (98-107) mmol/L Carbon Dioxide 21 (21-32) mmol/L Anion Gap 9.0 (3-11) BUN 16 (7-18) mg/dl Creatinine 0.81 (0.6-1.2) mg/dl Est Cr Clr Drug Dosing 106.8 ml/min Est GFR ( Amer) 100.2 Est GFR (Non-Af Amer) 86.5 BUN/Creatinine Ratio 20.0 (10-20) Glucose 116 H (70-99) mg/dl Calcium 9.5 (8.5-10.1) mg/dl Magnesium 2.1 (1.8-2.4) mg/dl Total Bilirubin 0.8 (0.2-1) mg/dl AST 20 (15-37) U/L ALT 30 (12-78) U/L Alkaline Phosphatase 78 (45-117) U/L Troponin I < 0.015 (0-0.045) ng/ml Total Protein 8.4 H (6.4-8.2) gm/dl Albumin 4.1 (3.4-5.0) gm/dl Globulin 4.3 H (2.5-4.0) gm/dl Albumin/Globulin Ratio 1.0 (0.9-2) Lipase 66 L (73-393) U/L Diagnostic Findings ABDOMEN AND PELVIS CT WITH IV CONTRAST CT DOSE: 1050.74 mGycm HISTORY: Generalized Abdominal pain, vomiting, Crohn's disease TECHNIQUE: Multiaxial CT images of the abdomen and pelvis were performed following the use of intravenous contrast. A dose lowering technique was utilized adhering to the principles of ALARA. COMPARISON STUDY: Abdomen and pelvis CT 03/28/2019. FINDINGS: The lung bases are clear. No pneumoperitoneum. No pneumatosis. Tiny hiatus hernia. Cholecystectomy. Mild central intrahepatic bile duct dilatation, unchanged. This is likely due to the patient's postcholecystectomy state. The pancreas, spleen, adrenal glands, and kidneys are unremarkable. The bladder, uterus, bilateral adnexa are within normal limits. Trace pelvic free fluid. Scattered colonic diverticula. The colon is decompressed. Normal appendix. No retroperitoneal lymphadenopathy. Atrophic infrarenal IVC see and common iliac veins with associated calcification. This favors chronic thrombus. Venous flow appears to be primarily from the left gonadal vein. This remains unchanged. Mild thickening and adjacent fat stranding involving the distal 20 cm of the terminal ileum. There is also a focal stricture at the distal ileum seen within the deep pelvis best seen on image 81. This appears to account for the transition point resulting in the small bowel obstruction. The loops of bowel proximal to this area of stricture or distended and fluid-filled measuring up to 3.4 cm in diameter. This has progressed. There are a few additional scattered small bowel loops which are slightly thickened and demonstrate mild adjacent inflammatory change and edema. Therefore, these findings are consistent with acute on chronic Crohn's disease. No definite fistula or abscess identified at this time. IMPRESSION: 1. Acute on chronic Crohn's disease demonstrated multiple thickened loops of small bowel most pronounced within the distal ileum. In addition, there is a focal stricture within the distal ileum within the deep pelvis resulting in a small bowel obstruction. This has progressed in the interval. 2. Trace pelvic free fluid. 3. Chronic thrombus seen throughout the infrarenal IVC and common iliac veins, unchanged. A 4. Additional findings as described above. ACT 112: Negative or not required by law. Electronically signed by: Geo Gil M.D. 09/12/2019 6:22 PM Code Status & VTE Plan Code Status Full Code Supervising Physician Co-Signing Physician Notes Patient was seen and examined by me personally. I reviewed the chart, the orders and discussed the case in detail with Dr. Bereket Blanco MD . I read this H&P and agree with its contents to entirety. Resident Activity Tracking Resident Involvement: Resident Care Provided Care Provided: Adult [facility]
[2019-09-12] MEDS ORDERED: ONDANSETRON INJ 2 MG/ML 2 ML VIAL ONE (21:06)
--- NOTE | 2019-09-12 21:25 | Billing Data ---
Date of Service September 12, 2019 Coding Level of Care Code 22661 Initial Inpt Care Lvl 3
[2019-09-12] MEDS ORDERED: PROMETHAZINE 12.5 MG/50.5 ML BAG IV STA (21:46)
[2019-09-12] MEDS: methylPREDNISolone 40 MG in SYRINGE 0 ML IV SCH (22:16)
[2019-09-12] MEDS ORDERED: LORazepam 0.25 MG/0.5 ML VIAL IV PRN (22:33)
[2019-09-12] MEDS ORDERED: HEPARIN SODIUM/DEXTROSE 25,000 UNITS/500 ML BAG IV SCH (22:33)
[2019-09-12] MEDS ORDERED: ACETAMINOPHEN 1,000 MG/100 ML VIAL IV PRN (22:33)
[2019-09-12] MEDS ORDERED: Heparin IV Standard *NO* Bolus IV SCH (22:33)
[2019-09-12] MEDS ORDERED: KETOROLAC TROMETHAMINE 15 MG/ML VIAL IV PRN (22:33)
[2019-09-12] MEDS ORDERED: ONDANSETRON INJ 2 MG/ML 2 ML VIAL IV PRN (22:33)
[2019-09-13] MEDS: LACTATED RINGER'S 1,000 ML IV SCH ×2 (00:12→11:02)
[2019-09-13] MEDS: methylPREDNISolone 40 MG in SYRINGE 0 ML IV SCH ×2 (05:57→14:45)
[2019-09-13 06:45] LABS: Hematocrit (blood only) 40.9 % (37-47); Hemoglobin 14.1 g/dL (12.0-16.0); Immature Granulocytes # (auto) 0.02 K/uL (0.00-0.02); Immature Granulocytes % (auto) 0.3 %; Lymphocytes # (auto) 1.08 K/uL (1.2-3.4); Lymphocytes % (auto) 15.6 %; Mean Corpuscular Hemoglobin 31.8 pg (25-34); Mean Corpuscular Hgb Conc 34.5 g/dL (32-36); Mean Corpuscular Volume 92.3 fL (80-100); Mean Platelet Volume 10.5 fL (7.4-10.4); Monocytes # (auto) 0.21 K/uL (0.11-0.59); Neutrophils # (auto) 5.62 K/uL (1.4-6.5); Neutrophils % (auto) 81.1 %; Platelet Count 229 K/uL (130-400); RDW Coefficient of Variation 13.9 % (11.5-14.5); RDW Standard Deviation 47.2 fL (36.4-46.3); Red Blood Count 4.43 M/uL (4.2-5.4); White Blood Count 6.93 K/uL (4.8-10.8)
[2019-09-13 06:58] LABS: Partial Thromboplastin Ratio 1.6; Partial Thromboplastin Time 43.6 Seconds (21.0-31.0)
[2019-09-13 07:17] LABS: BUN Creatinine Ratio 21.2 (10-20); Calcium 8.6 mg/dl (8.5-10.1); Creatinine Clr Calc Pharmacy 124.4 ml/min; Est GFR (African American) 119.6; Est GFR (Non-African American) 103.2; Potassium 4.1 mmol/L (3.5-5.1)
[2019-09-13] MEDS ORDERED: HEPARIN IV BOLUS 3,000 UNITS in SYRINGE 0 ML IV ONE (07:30)
[2019-09-13 08:46] LABS: Appearance Urine Clear (Clear); Bilirubin Urine Negative (Negative); Blood Urine 3+ (Negative); Color Urine Dark Yellow; Glucose Urine UA Negative (Negative); Ketones Urine Trace (Negative); Leukocyte Esterase Urine Negative (Negative); Nitrite Urine Negative (Negative); Protein Urine Negative (Negative); Specific Gravity Urine > 1.045 (1.000-1.030); Urobilinogen Urine Negative (Negative)
[2019-09-13 09:38] LABS: Bacteria Urine Negative (Negative); Epithelial Cell Urine >30 /lpf (0-5); Mucus Urine Present (None Prsent); RBC Urine 0-4 /hpf (0-4); WBC Urine 0-5 /hpf (0-5)
--- NOTE | 2019-09-13 09:59 | Surgery Consultation ---
Date of Consultation September 13, 2019 Assessment & Plan (1) Small bowel obstruction: Symptoms are already improved, abdomen is benign. Can have clears but will wait for GI to see her before ordering. She was seen with Dr. Pace. Will sign off for now, [facility] is covering the weekend if her condition changes. as above. pt with acute crohn's flare. distal small bowel stricture. surgery would be last resort/not recommended. should resolve with medical treatment. already clinically feeling much better. will be available if needed. [facility] covering for weekend. History of Present Illness Attending Physician: Stanislav Groves History of Present Illness 49 y/o female with Crohn's admitted last night for N/V that began after dinner on Monday and continued yesterday. Was given IV steroids and feels better already this morning had BM. Nausea has resolved. She would like something to eat or drink. Was scheduled for Entyvio today, has been on this since her last obstruction 6 or 7 months ago. Allergies Allergy/AdvReac Type Severity Reaction Status Date / Time latex Allergy Severe Hives Verified 09/12/19 16:44 adhesive Allergy Unknown BANDAIDS-RED Verified 09/12/19 16:42 BLISTERS Penicillins Allergy Unknown Unknown Verified 09/12/19 16:42 codeine AdvReac Unknown NAUSEA AND Verified 09/12/19 16:42 VOMITING Home Medications Home Medications Medication Instructions Recorded Confirmed Type lorazepam 0.5 mg PO DAILY PRN 09/12/19 09/12/19 History sertraline [Zoloft] 150 mg PO HS 09/12/19 09/12/19 History warfarin [Jantoven] 10 mg PO DAILY 09/12/19 09/12/19 History Patient History Medical History Anticoagulant long-term use Arterial embolism and thrombosis Chronic cholecystitis Crohn's ileitis Dysfunctional uterine bleeding Panic disorder Surgical History H/O colonoscopy Hx of cholecystectomy Family History Father Heart disease Diabetes Hypertension Mother Colonic polyp Diabetes Grandmother Diabetes Social History Preferred Language: Malaysian Communication Ability: Effective [employer] Sales Representative Required: No Beliefs That Will Affect Care: None Current Living Situation: Spouse Feels Safe at Home: Yes Smoking Status: Current every day smoker Tobacco Type: cigarettes ; Hx Alcohol Use: Yes Alcohol type: wine Hx Substance Use: No Review of Systems Constitutional: no fever and no chills Gastrointestinal: + nausea and + vomiting Physical Exam Constitutional: WD/WN, vitals as above Gastrointestinal (Abdomen): Inspection/Auscultation: abdomen not distended Percussion/Palpation: abdomen soft; abdomen nontender Results & Data Vital Signs (Past 12 Hours) Vital Signs Temp Pulse Pulse Pulse Resp BP BP 09/13/19 07:33 36.9 C 52 L 16 120/75 09/12/19 23:12 36.7 C 61 16 09/12/19 22:25 36.8 C 57 L 15 138/84 09/12/19 22:00 54 L 14 115/70 BP Pulse Ox 09/13/19 07:33 95 09/12/19 23:12 126/80 96 09/12/19 22:25 94 09/12/19 22:00 92 PG Care Time/CCT Total # of Minutes Spent Total Time Spent with Patient: Total time spent is greater than 50% in coordination of care (as documented) at patient's floor/unit and/or counseling patient: Coding Level of Care Code 97039 Inpt Consult Level 2 Diagnoses Small bowel obstruction K56.609
--- NOTE | 2019-09-13 10:07 | Gastrointestinal Consultation ---
Date of Consultation September 13, 2019 Assessment & Plan (1) Crohn's disease of ileum with complication: -Conservative treatment of the SBO; appreciate surgical consult -Continue IV Solumedrol at 40 mg BID; Will need 8 week steroid taper on d/c (starting at 40 mg daily x 1 week, and decreasing by 5 mg weekly from there). Would also recommend taking calcium & vitamin D supplement in conjunction with corticosteroids to protect bone health. -Reschedule Entyvio infusion MEKA -Needs outpatient colonoscopy on d/c -Ok to advance to liquids at present -Discussed with patient that continuing to smoke with Crohn's ileitis and stricturing disease is a problem that needs addressed immediately. -Avoid narcotics. Thank you for allowing us to participate in the care of this patient. If you should have any further questions or concerns, do not hesitate to contact us at [phone] or [phone]. Present on Admission?: Yes Supervising Physician Co-Signing Physician Notes Agree with DAVID Sexton as above Abd: Soft, NT, ND, +BS Continue current therapy Steroid taper upon D/C Continue Entyvio infusions Followup in our office in 2 weeks. History of Present Illness Reason for Consultation: Crohn's flare Attending Physician: Stanislav Groves History of Present Illness Patient is a 49 yo female with a history of Crohn's ileitis. She is currently on Entyvio 300 mg q 8 weeks. She was due for her infusion today. She reports she was feeling well until Monday when she developed midabdominal pain and constipation. She presented to the ED and was found to have CT findings of Crohn's disease with multiple thickened loops of small bowel within the distal ileum with evidence of a small bowel obstruction. She is currently on IV steroids. She is now moving her bowels and her pain is improved. Patient is overdue for office follow-up & a colonoscopy as her last was in 2017. She continues to smoke despite her history of stricturing disease. She reports compliance with her infusions. Allergies Allergy/AdvReac Type Severity Reaction Status Date / Time latex Allergy Severe Hives Verified 09/12/19 16:44 adhesive Allergy Unknown BANDAIDS-RED Verified 09/12/19 16:42 BLISTERS Penicillins Allergy Unknown Unknown Verified 09/12/19 16:42 codeine AdvReac Unknown NAUSEA AND Verified 09/12/19 16:42 VOMITING Home Medications Home Medications Medication Instructions Recorded Confirmed Type lorazepam 0.5 mg PO DAILY PRN 09/12/19 09/12/19 History sertraline [Zoloft] 150 mg PO HS 09/12/19 09/12/19 History warfarin [Jantoven] 10 mg PO DAILY 09/12/19 09/12/19 History Patient History Medical History Anticoagulant long-term use Arterial embolism and thrombosis Chronic cholecystitis Crohn's ileitis Dysfunctional uterine bleeding Panic disorder Surgical History H/O colonoscopy Hx of cholecystectomy Family History Father Heart disease Diabetes Hypertension Mother Colonic polyp Diabetes Grandmother Diabetes Social History Preferred Language: Macanese Communication Ability: Effective [employer]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 Beliefs That Will Affect Care: None Current Living Situation: Spouse Feels Safe at Home: Yes Smoking Status: Current every day smoker Tobacco Type: cigarettes ; Hx Alcohol Use: Yes Alcohol type: wine Hx Substance Use: No Review of Systems Constitutional: no fever and no chills Eyes: no acute issues Ear, Nose, Mouth, Throat: no acute issues Respiratory: no cough and no dyspnea Cardiovascular: no chest pain Gastrointestinal: + abdominal pain Musculoskeletal: no back pain Integumentary: no rash Neurologic: no dizziness Psychiatric: no acute issues Endocrine: no fatigue Hematologic / Lymphatic: no easy bleeding Physical Exam Constitutional: WD/WN, vitals as above Eyes: PERRL, conjunctivae normal, anicteric sclerae ENMT: external ear and nose normal, oropharynx normal Neck: normal visual inspection Respiratory: normal respiratory effort, lungs clear to auscultation Cardiovascular: RRR, no murmur, no edema Gastrointestinal (Abdomen): Percussion/Palpation: + abdomen tender and abdomen soft positive bowel sounds this AM Skin: no rashes, warm and dry Psychiatric: A+Ox3, euthymic affect Results & Data Vital Signs (Past 12 Hours) Vital Signs Temp Pulse Pulse Resp BP BP Pulse Ox 09/13/19 07:33 36.9 C 52 L 16 120/75 95 09/12/19 23:12 36.7 C 61 16 126/80 96 09/12/19 22:25 36.8 C 57 L 15 138/84 94 PG Care Time/CCT Total # of Minutes Spent Total Time Spent with Patient: Total time spent is greater than 50% in coordination of care (as documented) at patient's floor/unit and/or counseling patient: Coding Level of Care Code 54051 Office/OBS Consult Lvl 4 Diagnoses Crohn's disease of ileum with complication K50.019
--- NOTE | 2019-09-13 12:56 | Electrocardiogram Report ---
Test Reason : Blood Pressure : / mmHG Vent. Rate : 064 BPM Atrial Rate : 064 BPM P-R Int : 130 ms QRS Dur : 088 ms QT Int : 470 ms P-R-T Axes : 062 051 071 degrees QTc Int : 484 ms Poor data quality, interpretation may be adversely affected Normal sinus rhythm Nonspecific T wave abnormality Abnormal ECG When compared with ECG of 29-MAR-2019 05:09, QT has lengthened Confirmed by Devante Grant ([id number]) on 09/13/2019 12:56:05 PM Referred By: REFERRED SELF Confirmed By:Zackery Grant
[2019-09-13 14:26] LABS: Partial Thromboplastin Ratio 2.7
[2019-09-13 14:33] LABS: Partial Thromboplastin Time 73.7 Seconds (21.0-31.0)
[2019-09-13] MEDS ORDERED: WARFARIN SOD 10 MG TAB PO SCH (16:00)
[2019-09-13] MEDS ORDERED: ENOXAPARIN 100 MG/1ML SYR SQ SCH (16:30)
--- NOTE | 2019-09-13 19:58 | Discharge Summary ---
Date of Service September 13, 2019 Admission HPI Per Admitting Provider Calista Olvera is a 49y/o F with PMH significant for Crohn's disease, Factor V leiden deficiency, chronic thrombosis of bilateral iliac veins, and anxiety; presented to the emergency room for worsening nausea and vomiting in the absence of bowel movements similar to how she felt with a previous small bowel obstruction. Started one day ago, and the pain has consistently increased over the last 24hours, remains nauseated; has not had a bowel movement since 09/10. Tried to eat yesterday but had increased discomfort and then ultimately vomited. Took zofran twice at home with out improvement; has been able to keep down ice chips without vomiting but the nausea has persisted. Was unable to take her warfarin prior the last two days. Principal Diagnosis Crohns Exacerbation; SBO Discharge Exam Constitutional WD/WN, vitals as above Eyes + anicteric sclerae ENMT Ears: no hearing impairment Neck trachea midline Respiratory normal respiratory effort, lungs clear to auscultation Cardiovascular RRR, no murmur, no edema Gastrointestinal (Abdomen) Inspection/Auscultation: normal bowel sounds Percussion/Palpation: abdomen soft; abdomen nontender, no guarding and abdomen not rigid Musculoskeletal no cyanosis or clubbing, extremities motor strength 5/5 Skin no rashes, warm and dry Neurologic moves all extremities Psychiatric A+Ox3, euthymic affect Discharge Data Allergies Allergy/AdvReac Type Severity Reaction Status Date / Time latex Allergy Severe Hives Verified 09/12/19 16:44 adhesive Allergy Unknown BANDAIDS-RED Verified 09/12/19 16:42 BLISTERS Penicillins Allergy Unknown Unknown Verified 09/12/19 16:42 codeine AdvReac Unknown NAUSEA AND Verified 09/12/19 16:42 VOMITING Consultations 09/12/19 19:27 ED Decision to Admit Stat 09/12/19 22:33 Consult Gastroenterology Routine Consult General Surgery Routine Ordered Studies 09/12/19 16:35 CT abd pelvis IV con only Stat Hospital Course (1) Small bowel obstruction: -CT reveals acute on chronic Crohn's disease with multiple thickened loops of small bowel most pronounced within the distal ileum. There is a focal stricture within the distal ileum within the deep pelvis resulting in small bowel obstruction; no noted fistula or abscess; also noted to have chronic thrombus throughout the infrarenal IVC and common iliac veins that have been unchanged -Upon admission patient began passing flatus and had multiple bowel movements resulting in complete resolution of her symptoms -Diet was advanced and tolerated without any further abdominal pain, nausea, vomiting -GEN surgery consulted and no plans for surgical intervention at this time (2) Exacerbation of Crohn's disease: -Patient receives Entyvio every 8 weeks -she was due for a dose on 09/13 however missed this due to hospitalization --A message was left at the cancer center to reschedule this appointment as soon as possible -message asked for them to call patient for new time -She was evaluated by GI during hospitalization -recommendations for 8 weeks steroid taper as follows: Prednisone 40 mg daily x1 week and to reduce by 5 mg weekly to complete an 8-week course -Recommendations for outpatient colonoscopy -Discussed personally with GI, Dr. Chang (3) Factor V deficiency: -Noted; on chronic anticoagulation with warfarin therapy (4) Chronic thrombosis of both iliac veins: -Stable per CT findings -Discussed with patient who states she is always bridged if she needs to miss her anticoagulation; due to her vomiting she did miss some dosing of her warfarin and was utilizing heparin drip while hospitalized due to uncertainty of length of n.p.o. status. Her INR was 1.6. -Patient is very familiar with Lovenox injections and therefore prescribed therapeutic Lovenox 1 mg/kg twice daily x3 days. She has standing orders at her PCP office for INR check and is due to have this checked on Monday. Further need for bridge can be determined pending that laboratory Disposition: Postop hospital follow-up appointment with PCP arranged. Continue 8-week steroid taper. Recommendations for follow-up with GI and plan for outpatient colonoscopy pending improvement in acute Crohn exacerbation. Entyvio rescheduled with message left with the [facility] center. Total Time Total Time Spent Total Time Spent (In Minutes): Greater than 30 minutes Discharge Plan Discharge Items Patient Disposition: Home - Self-Care Reason For Visit: ABDOMINAL PAIN Discharge Diagnosis: Small Bowel Obstruction; Crohn's Exacerbation Condition on Discharge: Good Activity: Resume your previous activity Non-emergency contact: Primary Care Provider Call non-emergency contact if: you have any medication questions, your symptoms worsen and you have a fever Follow-up/Referrals: Zeke Miller MD [Primary Care Provider] - 09/16/19 11:30 am (Please, follow up with Dr. Miller on MondaySeptember 16 at 11:30 am. *If you need to change this appointment, call the office at [phone].) Diet: Low Fiber Addtl Attending Provider Instructions: Small Bowel Obstruction/Crohn's Exacerbation: - Your CAT Scan shows some acute inflammation consistent with a Crohn's flair and a small bowel obstruction - Thankfully your bowels are moving and passing gas and symptoms resolved. No surgical procedure is necessary at this time. Recommend a low fiber diet for a couple weeks and easy to digest food. - You will need to take a long steroid taper over the next 8 weeks as follows. Start this tomorrow 09/14 Prednisone 40 mg daily x 7 days - Then 35 mg daily x 7 days - Then 30 mg daily x 7 days - Then 25 mg daily x 7 days - Then 20 mg daily x 7 days - Then 15 mg daily x 7 days - Then 10 mg daily x 7 days - Then 5 mg daily x 7 days - A message was left at the cancer center to reschedule your Entyvio - please follow-up with this if they do not give you a call to get this rescheduled as soon as possible - You should have a follow-up with the GI doctors and consider colonoscopy when this exacerbation resolves Factor V Leiden: - Your INR is 1.6 and this is not therapeutic - Will bridge with Lovenox twice a day for at least 3 days with your normal Coumadin. You will need to have your Coumadin Level (INR) checked on Monday and can adjust from there if bridging is necessary Pending Studies at Discharge: No Stand-Alone Forms: Call Back Authorization, My [facility], Smoking Cessation Medications and DC Order Prescriptions: New prednisone 10 mg tablet 10 mg PO DIRECTED 56 Days Qty: 126 RF: 0 Continued warfarin [Jantoven] 10 mg tablet 10 mg PO DAILY RF: 0 sertraline [Zoloft] 100 mg tablet 150 mg PO HS RF: 0 lorazepam 0.5 mg tablet 0.5 mg PO DAILY PRN (Reason: Panic Attack(S)) RF: 0 No Action Suprep Bowel Prep Kit 17.5-3.13-1.6 gram recon soln See Rx Instructions .Route .COMPLEX Qty: 354 RF: 0 enoxaparin 100 mg/mL syringe 100 mg SQ Q12H Qty: 12 RF: 2 Discharge Orders: Discharge Order (Routine); Ordered 09/13/19 Ordered By: Tomasa Wing/Other Patient Handouts: Warfarin tablets, Enoxaparin injection Admission Data Admit Date/Time: 09/12/19 20:29 Attending Provider: Stanislav Groves Admit Provider: Bereket Blanco Primary Care Provider: Zeke Miller Other Providers: Steve Chang ; Igor Pace AL Date/Time DO NOT enter until pt leaves facility: 09/13/19 18:40 Supervising Physician Co-Signing Physician Notes During my face to face patient encounter, I obtained a history, physical examination and discussed discharge plan with the patient. I had reviewed above note by APC and agreed with ti as my examination did not differ from Tomasa HACKETT. I answered all of the patient's questions and concerns. Patient was admitted for Small bowel obstruction and was treated conservatively. Patient reports passing flatus and tolerating his diet. [facility] recommendations noted on discharge instructions Coding Level of Care Code D/C Day Management >30 mins Diagnoses Small bowel obstruction K56.609 Exacerbation of Crohn's disease K50.90 Factor V deficiency D68.2 Chronic thrombosis of both iliac veins I82.523
[2019-09-13] MEDS ORDERED: methylPREDNISolone 40 MG in SYRINGE 0 ML IV SCH (21:00)
== END 2019-09-13 18:40 | disposition home or self-care (01) | DRG 386 ==
LOC: ED 16:12 → SUATTDRO 20:29 → 3W 20:29

== ENCOUNTER 2020-07-12 20:10 | Observation (INO) ==
[2020-07-12] MEDS ORDERED: ONDANSETRON INJ 2 MG/ML 2 ML VIAL IV STA ×2 (20:38→23:17)
[2020-07-12] MEDS ORDERED: SODIUM CHLORIDE 0.9% 1000ML 1,000 ML IV ONE (20:38)
[2020-07-12] MEDS: HYDROmorphone INJ 0.5 MG/0.5 ML SYR IV PRN ×2 (21:12→23:21)
[2020-07-12 21:23] LABS: Basophils # (auto) 0.03 K/uL (0-0.2); Basophils % (auto) 0.2 %; Eosinophils # (auto) 0.11 K/uL (0-0.5); Eosinophils % (auto) 0.9 %; Hematocrit (blood only) 42.4 % (37-47); Hemoglobin 15.1 g/dL (12.0-16.0); Immature Granulocytes # (auto) 0.06 K/uL (0.00-0.02); Immature Granulocytes % (auto) 0.5 %; Lymphocytes # (auto) 1.83 K/uL (1.2-3.4); Lymphocytes % (auto) 15.1 %; Mean Corpuscular Hemoglobin 31.6 pg (25-34); Mean Corpuscular Hgb Conc 35.6 g/dL (32-36); Mean Corpuscular Volume 88.7 fL (80-100); Mean Platelet Volume 10.5 fL (7.4-10.4); Monocytes # (auto) 0.73 K/uL (0.11-0.59); Neutrophils # (auto) 9.34 K/uL (1.4-6.5); Neutrophils % (auto) 77.3 %; Platelet Count 263 K/uL (130-400); RDW Coefficient of Variation 13.1 % (11.5-14.5); RDW Standard Deviation 42.7 fL (36.4-46.3); Red Blood Count 4.78 M/uL (4.2-5.4)
[2020-07-12 21:32] LABS: INR 2.2 (0.9-1.1)
[2020-07-12 21:43] LABS: Albumin Level 4.2 gm/dl (3.4-5.0); BUN Creatinine Ratio 11.3 (10-20); Calcium 9.7 mg/dl (8.5-10.1); Creatinine Clr Calc Pharmacy 93.3 ml/min; Est GFR (African American) 82.1; Est GFR (Non-African American) 70.8; Potassium 3.9 mmol/L (3.5-5.1)
--- NOTE | 2020-07-12 21:45 | Emergency Department Note ---
History of Present Illness General Chief Complaint: Abdominal Pain Stated Complaint: CROHNS FLARE UP Time Seen by Provider: 07/12/20 20:33 Source: patient Mode of arrival: EMS Limitations: no limitations History of Present Illness Provider Complaint: abdominal pain Maximum Pain Intensity: 10 This is a 50-year-old female who presents to the ED with a chief complaint of a Crohn's flare. The patient states that her symptoms started around 1400 hrs. today. She has some associated nausea and vomiting as well as some diarrhea. The patient states that her nausea vomiting and diarrhea was mainly this morning. She describes her pain as a sharp pain that comes in waves. It is mostly in the epigastric and upper quadrants of her abdomen. She denies any blood in her stools. She denies any shortness of breath, fevers or upper respiratory symptoms. Home Medications Medication Instructions Recorded Confirmed Type vedolizumab 300 mg intravenous See Rx Instructions IV .COMPLEX 02/03/20 07/12/20 History solution lorazepam 0.5 mg tablet 0.5 mg PO DAILY PRN #30 tab 02/17/20 07/12/20 Rx sertraline 100 mg tablet 150 mg PO HS #135 tab 02/17/20 07/12/20 Rx warfarin 10 mg tablet 10 mg PO UD #90 tab 02/17/20 07/12/20 Rx warfarin 5 mg tablet 5 mg PO DAILY #30 tab 02/18/20 07/12/20 Rx Allergies Allergy/AdvReac Type Severity Reaction Status Date / Time adhesive Allergy Mild BANDAIDS-RED Verified 07/12/20 21:20 BLISTERS codeine Allergy Mild NAUSEA AND Verified 07/12/20 21:20 VOMITING Penicillins Allergy Unknown Unknown in Verified 07/12/20 21:20 childhood Past Med/Surg History Medical History (Updated 07/12/20 @ 23:16 by Cash Chacko DO) Arterial embolism and thrombosis Exacerbation of Crohn's disease Factor 5 Leiden mutation, heterozygous Hyperlipidemia Nonspecific abnormal electrocardiogram (ECG) (EKG) Small bowel obstruction Surgical History H/O colonoscopy (09/2019) History of tooth extraction History of wisdom tooth extraction Hx of cholecystectomy Family History Father Heart disease Hypertension Family history of diabetes mellitus Mother Family history of reaction to anesthesia severe vomiting Family history of diabetes mellitus Family hx colonic polyps Grandmother (Paternal) Family history of diabetes mellitus Aunt Family hx colonic polyps Grandfather (Maternal) Family hx colonic polyps Social History Smoking Status: Current every day smoker Tobacco Type: Cigarettes Cigarettes Per Day: 10 a day; Second Hand Exposure: Yes (father smoked); Hx Alcohol Use: Yes Alcohol type: beer and wine Hx Substance Use: No Preferred Language: Moroccan Communication Ability: Effective Research Instructor Required: No Beliefs That Will Affect Care: None Current Living Situation: Spouse Feels Safe at Home: Yes Assistive Devices: Glasses Review of Systems A total of 10 systems reviewed and were otherwise negative Physical Exam Vital Signs: Vital Signs - 24 hr 07/12/20 20:13 07/12/20 22:36 07/12/20 23:11 Temperature 36.4 C L Temperature Source Oral Pulse Rate 71 Pulse Rate [Right Finger] 61 Pulse Rhythm [Righ t Finger] Regular Pulse Strength [Ri ght Finger] Normal Respiratory Rate 16 16 Respiratory Effort / Characteristics Non-Labored Respiratory Depth Normal Respiratory Patter n Regular Blood Pressure 151/100 H Blood Pressure [Le ft Arm] 137/67 Blood Pressure Meg n 117 Blood Pressure Meg n [Left Arm] 90 Blood Pressure Pos ition [Left Arm] Lying Pulse Oximetry 100 94 96 Oxygen Delivery Me thod Room Air Room Air Room Air Sepsis Recent Feve r Within 48 Hours No Sepsis New/Unexpla ined Change in Men janes Status No Sepsis Action Take n by Nursing No Action Required Physical Exam: CONSTITUTIONAL/VITAL SIGNS: Reviewed / noted above. GENERAL: Non-toxic in appearance. INTEGUMENTARY: Warm, dry, and [place]. HEAD: Normocephalic. EYES: without scleral icterus or trauma. ENT/OROPHARYNX: clear and moist. LYMPHADENOPATHY/NECK: Is supple without lymphadenopathy or meningismus. RESPIRATORY: Lungs clear and equal. CARDIOVASCULAR: Regular rate and rhythm. GI/ABDOMEN: Soft and tender in the upper abdomen. No organomegaly or pulsatile mass. No rebound or guarding. Normal bowel sounds. EXTREMITIES: Warm and well perfused. BACK: No CVA tenderness. NEUROLOGICAL: Intact without focal deficits. PSYCHIATRIC: normal affect. MUSCULOSKELETAL: Normally developed with good muscle tone. TRIAGE NURSING DOCUMENTATION REVIEWED. Course Administered Medications Hydromorphone HCl (Hydromorphone Inj 0.5 Mg/0.5 Ml Syr) 0.5 mg IV Q15M PRN PRN Reason: Pain Stop: 07/26/20 20:37 Last Admin: 07/12/20 21:12 Dose: 0.5 mg Documented by: [id number] Discontinued Medications Sodium Chloride (Nss 1000ml) 1,000 mls @ 999 mls/hr IV .Q1H1M ONE Stop: 07/12/20 21:38 Last Infusion: 07/12/20 22:34 Dose: 0 mls/hr Documented by: [id number] Admin: 07/12/20 21:12 Dose: 999 mls/hr Documented by: [id number] Ioversol (Ioversol 100ml) 93 ml IV ONCE ONE Stop: 07/12/20 22:18 Last Admin: 07/12/20 22:18 Dose: 93 ml Documented by: [id number] Ondansetron HCl (Ondansetron Inj 2 Mg/Ml 2 Ml Vial) 4 mg IV NOW STA Stop: 07/12/20 20:39 Last Admin: 07/12/20 21:12 Dose: 4 mg Documented by: [id number] Medical Decision Making Differential Diagnosis Differential considered: pancreatitis, hepatitis, acute cholecystitis, AAA, UTI, pyelonephritis, kidney stones, appendicitis, diverticulitis, shingles, bowel obstruction, mesenteric ischemia, intussusception,hernia, ovarian torsion, ruptured ovarian cyst,ectopic , . Medical Records Attestation: I reviewed the patient's medical records. Home Medications Current Medication List: was personally reviewed by me Laboratory Data Attestation: I reviewed the patient's lab results. Result diagrams: 07/12/20 21:10 07/12/20 21:10 Lab Results 07/12/20 07/12/20 07/12/20 Range/Units 21:10 21:10 21:10 WBC 12.10 H (4.8-10.8) K/uL RBC 4.78 (4.2-5.4) M/uL Hgb 15.1 (12.0-16.0) g/dL Hct 42.4 (37-47) % MCV 88.7 (80-100) fL MCH 31.6 (25-34) pg MCHC 35.6 (32-36) g/dL RDW Std Deviation 42.7 (36.4-46.3) fL RDW Coeff of Rain 13.1 (11.5-14.5) % Plt Count 263 (130-400) K/uL MPV 10.5 H (7.4-10.4) fL Immature Gran % (Auto) 0.5 % Neut % (Auto) 77.3 % Lymph % (Auto) 15.1 % [place] % (Auto) 6.0 % Eos % (Auto) 0.9 % Baso % (Auto) 0.2 % Neut # (Auto) 9.34 H (1.4-6.5) K/uL Lymph # (Auto) 1.83 (1.2-3.4) K/uL [place] # (Auto) 0.73 H (0.11-0.59) K/uL Eos # (Auto) 0.11 (0-0.5) K/uL Baso # (Auto) 0.03 (0-0.2) K/uL Immature Gran # (Auto) 0.06 H (0.00-0.02) K/uL PT 22.0 H (9.0-12.0) Seconds INR 2.2 H (0.9-1.1) Sodium 139 (136-145) mmol/L Potassium 3.9 (3.5-5.1) mmol/L Chloride 107 (98-107) mmol/L Carbon Dioxide 21 (21-32) mmol/L Anion Gap 11.0 (3-11) BUN 11 (7-18) mg/dl Creatinine 0.95 (0.6-1.2) mg/dl Est Cr Clr Drug Dosing 93.3 ml/min Est GFR ( Amer) 82.1 Est GFR (Non-Af Amer) 70.8 BUN/Creatinine Ratio 11.3 (10-20) Glucose 111 H (70-99) mg/dl Calcium 9.7 (8.5-10.1) mg/dl Total Bilirubin 0.4 (0.2-1) mg/dl AST 16 (15-37) U/L ALT 23 (12-78) U/L Alkaline Phosphatase 98 (45-117) U/L Total Protein 8.3 H (6.4-8.2) gm/dl Albumin 4.2 (3.4-5.0) gm/dl Globulin 4.1 H (2.5-4.0) gm/dl Albumin/Globulin Ratio 1.0 (0.9-2) Lipase 83 (73-393) U/L Imaging Data Radiologist's Impression: CT scan of the abdomen pelvis: Small bowel obstruction within the ileum. Distention up to 3.7 cm. Transition point within the distal ileum which is stenotic secondary to the patient's history of Crohn's. There is mild thickening within the distal and terminal ileum with submucosal fat d eposition consistent with changes associated with chronic inflammation. There may be a component of mild active inflammation. No pneumatosis or free air. Status post cholecystectomy. Prominent periuterine vasculature which can be seen in the setting of pelvic congestion syndrome. MDM Narrative This is a 42-year-old female who presents with a chief complaint of a possible Crohn's flare. Vital signs reveal hypertension. She has some tenderness in the upper abdomen on my exam. Her CBC reveals a slight elevation of the white blood cell count of 12. INR is 2.2. She is chronically on Coumadin. Chemistry panel was unremarkable. CT scan of the abdomen pelvis reveals a small bowel obstruction. The patient was treated with IV fluids, IV Zofran and IV Dilaudid. She will be seen by the hospitalist for further evaluation and care. Impression & Plan SBO (small bowel obstruction), Crohn's disease Discharge Plan Visit Data Chief Complaint: Abdominal Pain Stated Complaint: CROHNS FLARE UP ED Provider: Cash Chacko Discharge Problem: SBO (small bowel obstruction), Crohn's disease Patient Disposition: Being Evaluated by Hospitalist Forms Stand Alone Forms: My [facility] Prescriptions Prescriptions: No Action warfarin [Coumadin] 5 mg tablet 5 mg PO DAILY Qty: 30 RF: 2 sertraline [Zoloft] 100 mg tablet 150 mg PO HS Qty: 135 RF: 3 warfarin [Jantoven] 10 mg tablet 10 mg PO UD Qty: 90 RF: 0 lorazepam 0.5 mg tablet 0.5 mg PO DAILY PRN (Reason: Panic Attack(S)) Qty: 30 RF: 0 Entyvio 300 mg recon soln See Rx Instructions IV .COMPLEX RF: 0 Referrals Referrals: Zeke Miller MD [Primary Care Provider] -
[2020-07-12 21:46] LABS: Bilirubin,Total 0.4 mg/dl (0.2-1); Globulin 4.1 gm/dl (2.5-4.0); Total Protein 8.3 gm/dl (6.4-8.2)
[2020-07-12] MEDS ORDERED: IOVERSOL 100ml IV ONE (22:17)
--- NOTE | 2020-07-13 00:34 | History & Physical Report ---
Date of Service July 13, 2020 Assessment & Plan (1) SBO (small bowel obstruction): Small bowel obstruction with transition point in distal ileum- Likely secondary to inflammation associated with Crohn's exacerbation. NPO Methylprednisolone 40 mg IV every 8 hours. Cipro 40 mg IV every 12 hours Metronidazole 500 mg IV every 8 hours NSS + KCl 20 mEq at 100 mils per hour Consult her loop cutter Dr. Chang Present on Admission?: Yes (2) Chronic thrombosis of both iliac veins: Chronic thrombosis of bilateral iliac veins/factor V deficiency- Hold warfarin Place on heparin drip low-dose without bolus Present on Admission?: Yes (3) Factor V deficiency: See above Present on Admission?: Yes (4) Anxiety: Anxiety with depression- Hold oral lorazepam and sertraline. Lorazepam IV 0.5 mg every 6 hours as needed Present on Admission?: Yes (5) Depression: See above Present on Admission?: Yes (6) Tobacco abuse: History of Present Illness Chief Complaint: The patient presents to the emergency department with complaint of worsening abdominal pain, nausea and vomiting that began this morning. Primary Care Provider: Zeke Miller MD The patient is a 50-year-old female with a past medical history including Crohn's disease, hyperlipidemia, depression, chronic thrombosis of bilateral iliac veins, factor V Leiden deficiency, anxiety, tobacco abuse, chronic venous insufficiency, migraine, dysfunctional uterine bleeding, panic disorder and long-term anticoagulant use. She developed acute onset of nausea, vomiting and intermittent loose stools at around 2:00 this afternoon. She does not report any changes in the usual dietary pattern, and she has continued to take her usual medications including those for Crohn's on a regular basis. Allergies Allergy/AdvReac Type Severity Reaction Status Date / Time adhesive Allergy Mild BANDAIDS-RED Verified 07/12/20 21:20 BLISTERS codeine Allergy Mild NAUSEA AND Verified 07/12/20 21:20 VOMITING Penicillins Allergy Unknown Unknown in Verified 07/12/20 21:20 childhood Home Medications Medication Instructions Recorded Confirmed Type vedolizumab 300 mg intravenous See Rx Instructions IV .COMPLEX 02/03/20 07/12/20 History solution lorazepam 0.5 mg tablet 0.5 mg PO DAILY PRN #30 tab 02/17/20 07/12/20 Rx sertraline 100 mg tablet 150 mg PO HS #135 tab 02/17/20 07/12/20 Rx warfarin 10 mg tablet 10 mg PO UD #90 tab 02/17/20 07/12/20 Rx warfarin 5 mg tablet 5 mg PO DAILY #30 tab 02/18/20 07/12/20 Rx Past Med/Surg History Medical History (Updated 07/12/20 @ 23:16 by Cash Chacko DO) Arterial embolism and thrombosis Exacerbation of Crohn's disease Factor 5 Leiden mutation, heterozygous Hyperlipidemia Nonspecific abnormal electrocardiogram (ECG) (EKG) Small bowel obstruction Surgical History H/O colonoscopy (09/2019) History of tooth extraction History of wisdom tooth extraction Hx of cholecystectomy Family History Father Heart disease Hypertension Family history of diabetes mellitus Mother Family history of reaction to anesthesia severe vomiting Family history of diabetes mellitus Family hx colonic polyps Grandmother (Paternal) Family history of diabetes mellitus Aunt Family hx colonic polyps Grandfather (Maternal) Family hx colonic polyps Social History Smoking Status: Current every day smoker Tobacco Type: Cigarettes Cigarettes Per Day: 10 a day; Second Hand Exposure: Yes (father smoked); Do You Dip or Chew Tobacco: No; Tobacco Cessation Education Requested by Patient: No (patient refused) Hx Alcohol Use: No Hx Substance Use: No Preferred Language: Kosovan Communication Ability: Effective Clinical Informatics Specialist Required: No Beliefs That Will Affect Care: None Current Living Situation: Spouse Other Information That Helps Us Care for You: No Feels Safe at Home: Yes Safety Concerns: Feels Safe At This Time Assistive Devices: None and Glasses Review of Systems Review of Systems: The patient denies chest pain, palpitations, shortness of breath, dyspnea on exertion, cough, lower extremity swelling, sore throat, fevers, chills, sweats, blood in urine or stool, dysuria, urinary f requency or urgency, lightheadedness, dizziness, headache, memory loss, loss of consciousness, rash, abnormal bruising or bleeding, imbalance, focal or generalized weakness, numbness or tingling in arms or legs, generalized arthralgias or myalgias, back or neck pain, or night sweats. The review of systems is otherwise negative other than for that already noted above, and at least 10 systems have been reviewed. Physical Exam Physical Exam: The patient is awake, alert and oriented 3, well developed and well nourished, normocephalic and atraumatic, lying in bed and in mild acute distress. HEENT--PERRL, EOMI, mucous membranes and oropharynx dry. Neck--supple. No JVD. No bruits. Thyroid normal, trachea midline, no adenopathy. Heart--normal S1 and S2. No murmurs, rubs or gallops. Lungs--clear bilaterally, no respiratory distress, no accessory muscle use. Abdomen--normal bowel sounds and soft. Generalized abdominal discomfort. Nondistended Extremities--no cyanosis or clubbing. No edema. Dermatologic--normal skin turgor, normal color, no abnormal lymph nodes, no rash. Neurologic--cranial nerves II through XII grossly intact. Rheumatologic--normal range of motion. Psychiatric--normal affect. Results & Data Results & Data ([facility]) Vital Signs (Past 12 Hours) Vital Signs Temp Pulse Pulse Resp BP BP Pulse Ox 07/12/20 23:45 84 20 123/68 99 07/12/20 23:14 71 20 139/88 98 07/12/20 23:11 96 07/12/20 22:36 61 16 137/67 94 07/12/20 20:13 97.5 F L 71 16 151/100 H 100 Laboratory Results Laboratory Results WBC 12.10 K/uL (4.8-10.8) H 07/12/20 21:10 RBC 4.78 M/uL (4.2-5.4) 07/12/20 21:10 Hgb 15.1 g/dL (12.0-16.0) 07/12/20 21:10 Hct 42.4 % (37-47) 07/12/20 21:10 MCV 88.7 fL (80-100) 07/12/20 21:10 MCH 31.6 pg (25-34) 07/12/20 21:10 MCHC 35.6 g/dL (32-36) 07/12/20 21:10 RDW Std Deviation 42.7 fL (36.4-46.3) 07/12/20 21:10 RDW Coeff of Rain 13.1 % (11.5-14.5) 07/12/20 21:10 Plt Count 263 K/uL (130-400) 07/12/20 21:10 MPV 10.5 fL (7.4-10.4) H 07/12/20 21:10 Immature Gran % (Auto) 0.5 % 07/12/20 21:10 Neut % (Auto) 77.3 % 07/12/20 21:10 Lymph % (Auto) 15.1 % 07/12/20 21:10 Garza % (Auto) 6.0 % 07/12/20 21:10 Eos % (Auto) 0.9 % 07/12/20 21:10 Baso % (Auto) 0.2 % 07/12/20 21:10 Neut # (Auto) 9.34 K/uL (1.4-6.5) H 07/12/20 21:10 Lymph # (Auto) 1.83 K/uL (1.2-3.4) 07/12/20 21:10 Garza # (Auto) 0.73 K/uL (0.11-0.59) H 07/12/20 21:10 Eos # (Auto) 0.11 K/uL (0-0.5) 07/12/20 21:10 Baso # (Auto) 0.03 K/uL (0-0.2) 07/12/20 21:10 Immature Gran # (Auto) 0.06 K/uL (0.00-0.02) H 07/12/20 21:10 PT 22.0 Seconds (9.0-12.0) H 07/12/20 21:10 INR 2.2 (0.9-1.1) H 07/12/20 21:10 Sodium 139 mmol/L (136-145) 07/12/20 21:10 Potassium 3.9 mmol/L (3.5-5.1) 07/12/20 21:10 Chloride 107 mmol/L (98-107) 07/12/20 21:10 Carbon Dioxide 21 mmol/L (21-32) 07/12/20 21:10 Anion Gap 11.0 (3-11) 07/12/20 21:10 BUN 11 mg/dl (7-18) 07/12/20 21:10 Creatinine 0.95 mg/dl (0.6-1.2) 07/12/20 21:10 Est Cr Clr Drug Dosing 93.3 ml/min 07/12/20 21:10 Est GFR ( Amer) 82.1 07/12/20 21:10 Est GFR (Non-Af Amer) 70.8 07/12/20 21:10 BUN/Creatinine Ratio 11.3 (10-20) 07/12/20 21:10 Glucose 111 mg/dl (70-99) H 07/12/20 21:10 Calcium 9.7 mg/dl (8.5-10.1) 07/12/20 21:10 Total Bilirubin 0.4 mg/dl (0.2-1) 07/12/20 21:10 AST 16 U/L (15-37) 07/12/20 21:10 ALT 23 U/L (12-78) 07/12/20 21:10 Alkaline Phosphatase 98 U/L (45-117) 07/12/20 21:10 Total Protein 8.3 gm/dl (6.4-8.2) H 07/12/20 21:10 Albumin 4.2 gm/dl (3.4-5.0) 07/12/20 21:10 Globulin 4.1 gm/dl (2.5-4.0) H 07/12/20 21:10 Albumin/Globulin Ratio 1.0 (0.9-2) 07/12/20 21:10 Lipase 83 U/L (73-393) 07/12/20 21:10 Diagnostic Findings [facility] Patient: JAYDE CHAPPELL (Female) : 74 Status: ER Date: 07/12/20 22:23 Room #: History: ABD PAIN HX OF CROHNS Slices: [phone] Priors: Tech: Bryan Louis @ [phone] Exams: CT ABDOMEN & PELVIS With Contrast Contrast: IV Amt: 93 Accession Numbers: [id number] Preliminary Findings Only See Final Report For Complete Findings CT ABDOMEN & PELVIS With Contrast: Small bowel obstruction within the ileum. Distention up to 3.7 cm. Transition point within the distal ileum which is stenotic secondary to the patient's h istory of Crohn's. There is mild thickening within the distal and terminal ileum with submucosal fat deposition consistent with changes associated with chronic inflammation. There may be a component of mild active inflammation. No pneumatosis or free air. Status post cholecystectomy. Atretic IVC with internal calcifications, likely sequela of prior DVT. Prominent periuterine vasculature which can be seen in the setting of pelvic congestion syndrome. Radiologist: Bijan Stanton MD Study ready at 22:30 and initial results transmitted at 22:44 *This report constitutes a preliminary interpretation only. Non-acute findings felt to be unrelated to the clinical presentation may not be discussed in this report. The study will be interpreted and a final report will be generated by the local Radiologist the following shift. To reach the hospital radiology department call [phone]. If a discrepancy is found between the preliminary and final interpretations of this study, please notify us via our Client Portal at [email or web address].You can also fax this report with a description of the discrepancy, or include the final report, to our daytime fax number [phone].If faxing, please indicate the severity of discrepancy using one of the following categories: [ ] 1 - Agree/Informational [ ] 2 - Unlikely to Affect Management [ ] 3 - Possible Eventual Change of Management [ ] 4 - Probable Immediate Change of Management For all other patient related information, please fax us at [phone]. [id number] Code Status & VTE Plan Code Status Full code VTE Prophylaxis Plan VTE Prophylaxis will be ordered: Yes PG Care Time/CCT Total # of Minutes Spent Total Time Spent with Patient: Total time spent is greater than 50% in coordination of care (as documented) at patient's floor/unit and/or counseling patient: Coding Level of Care Code 75663 Initial Inpt Care Lvl 3 Diagnoses SBO (small bowel obstruction) K56.609 Chronic thrombosis of both iliac veins I82.523 Factor V deficiency D68.2 Anxiety F41.9 Depression F32.9 Tobacco abuse Z72.0
[2020-07-13] MEDS: HYDROmorphone INJ 0.5 MG/0.5 ML SYR IV PRN (00:43)
[2020-07-13] MEDS ORDERED: ACETAMINOPHEN 1,000 MG/100 ML VIAL IV PRN (01:50)
[2020-07-13] MEDS ORDERED: HYDROmorphone INJ 0.5 MG/0.5 ML SYR IV PRN (01:50)
[2020-07-13] MEDS ORDERED: ONDANSETRON INJ 2 MG/ML 2 ML VIAL IV PRN (01:50)
[2020-07-13] MEDS: metroNIDAZOLE 500 MG/100 ML BAG IV SCH ×3 (02:22→18:23)
[2020-07-13] MEDS: methylPREDNISolone 40 MG in SYRINGE 0 ML IV SCH ×3 (02:22→20:13)
[2020-07-13] MEDS: NSS + 20MEQ KCL 20 MEQ/1,000 ML BAG IV SCH ×2 (02:22→15:10)
[2020-07-13] MEDS ORDERED: LORazepam 0.5 MG/1 ML VIAL IV PRN (03:40)
[2020-07-13 03:51] LABS: Basophils # (auto) 0.02 K/uL (0-0.2); Basophils % (auto) 0.2 %; Eosinophils # (auto) 0.01 K/uL (0-0.5); Eosinophils % (auto) 0.1 %; Hematocrit (blood only) 42.8 % (37-47); Immature Granulocytes # (auto) 0.05 K/uL (0.00-0.02); Immature Granulocytes % (auto) 0.5 %; Lymphocytes # (auto) 0.84 K/uL (1.2-3.4); Lymphocytes % (auto) 8.1 %; Mean Corpuscular Hemoglobin 31.9 pg (25-34); Mean Corpuscular Volume 91.1 fL (80-100); Mean Platelet Volume 10.6 fL (7.4-10.4); Monocytes # (auto) 0.34 K/uL (0.11-0.59); Monocytes % (auto) 3.3 %; Neutrophils # (auto) 9.17 K/uL (1.4-6.5); Neutrophils % (auto) 87.8 %; Platelet Count 263 K/uL (130-400); RDW Coefficient of Variation 13.3 % (11.5-14.5); RDW Standard Deviation 44.4 fL (36.4-46.3); White Blood Count 10.43 K/uL (4.8-10.8)
[2020-07-13] MEDS: CIPROFLOXACIN / D5W 400 MG/200 ML BAG IV SCH ×2 (03:56→15:10)
[2020-07-13 04:01] LABS: INR 1.9 (0.9-1.1); Prothrombin Time 18.9 Seconds (9.0-12.0)
[2020-07-13] MEDS: HEPARIN SODIUM/DEXTROSE 25,000 UNITS/500 ML BAG IV SCH (04:03)
[2020-07-13 04:13] LABS: Albumin Level 3.7 gm/dl (3.4-5.0); BUN Creatinine Ratio 11.3 (10-20); Calcium 8.7 mg/dl (8.5-10.1); Creatinine Clr Calc Pharmacy 95.5 ml/min; Est GFR (African American) 84.2; Est GFR (Non-African American) 72.7; Potassium 4.4 mmol/L (3.5-5.1)
[2020-07-13 04:16] LABS: Albumin Globulin Ratio 0.9 (0.9-2); Bilirubin,Total 0.5 mg/dl (0.2-1); Globulin 4.2 gm/dl (2.5-4.0); Total Protein 7.9 gm/dl (6.4-8.2)
--- NOTE | 2020-07-13 07:04 | CT Scan Report ---
CT abd pelvis IV con only CLINICAL HISTORY: abd pain hx Crohn's COMPARISON STUDY: 09/12/2019 TECHNIQUE: Patient was scanned in a dynamic helical fashion during intravenous administration of 94 c c of Optiray 320 A dose lowering technique was utilized adhering to the principles of ALARA. CT DOSE: 966.55 mGy.cm FINDINGS: Lower chest: There are mild basilar atelectatic changes Liver: No focal hepatic masses are visualized. There is minimal ductal prominence likely secondary to a reservoir effect given the prior cholecystectomy. The portal and hepatic veins appear patent Gallbladder: Surgically absent Spleen: The splenic masses are visualized. There is a small splenule present. Pancreas: Unremarkable. Adrenal glands: Unremarkable. Kidneys: There is symmetric renal cortical enhancement. The kidneys are normal in size without hydron ephrosis. Bowel: There are dilated mid to distal ileal loops containing formed fecal material. The distal ileum is of normal caliber. The findings are indicative of a small bowel obstruction. There is a right low er quadrant transition zone. There is minor wall thickening involving the terminal ileum. Peritoneum: There is no intraperitoneal free air or abdominal ascites. Vasculature: The abdominal aorta is normal in course and caliber. The IVC appears somewhat atrophic. There are bilateral iliac and IVC calcifications. The findings raise the possibility of a prior DVT. Adenopathy: None. Pelvic viscera: The bladder, and pelvic viscera are unremarkable. There are prominent periuterine ves sels. Skeletal structures: No destructive osseous lesions are seen. IMPRESSION: 1. Small bowel obstructive pattern with a right lower quadrant ileal transition zone. There is mild w all thickening involving the distal ileum with submucosal fat hypertrophy consistent with chronic inf lammatory change. 2. No evidence of free intraperitoneal air. 3. No evidence of abscess ACT 112: Negative or not required by law. Electronically signed by: Cory Ballard M.D. 07/13/2020 7:02 AM
[2020-07-13] MEDS ORDERED: Heparin IV Low Dose *NO* Bolus IV SCH (08:00)
[2020-07-13 09:50] LABS: Appearance Urine Cloudy (Clear); Bacteria Urine Automated 1+ (Negative); Bilirubin Urine Negative (Negative); Blood Urine 1+ (Negative); Color Urine Dark Yellow; Epithelial Cell Urine Auto >30 /lpf (0-5); Glucose Urine UA Negative (Negative); Ketones Urine Negative (Negative); Leukocyte Esterase Urine Negative (Negative); Nitrite Urine Negative (Negative); Protein Urine Trace (Negative); Specific Gravity Urine > 1.045 (1.000-1.030); Urobilinogen Urine Negative (Negative); pH Urine 5.5 (4.5-7.5)
[2020-07-13 10:03] LABS: Mucus Urine Present (None Prsent)
[2020-07-13 10:37] LABS: Partial Thromboplastin Ratio 1.3; Partial Thromboplastin Time 36.9 Seconds (21.0-31.0)
--- NOTE | 2020-07-13 10:40 | Gastrointestinal Consultation ---
Date of Consultation July 13, 2020 Assessment & Plan (1) SBO (small bowel obstruction): Symptoms improved with conservative measures. Patient denies abdominal pain and feels the need to move her bowels. -Can consider outpatient CT enterography and colorectal surgery evaluation given recurrent SBOs and ileal disease. -Liquids as tolerated. -Avoid narcotics. (2) Crohn's disease: -Decrease Solumedrol to 40 mg BID. Can transition to a taper on discharge beginning at 40 mg daily x 1 week, and decreasing by 5 mg weekly thereafter for 8 weeks total. -Upon discharge, will plan for CT enterography and possible colorectal surgery evaluation pending results. -Patient will need to reschedule Entyvio infusion [place]. Pending further work-up, will make outpatient recommendations regarding her maintenance medication. -Check fecal calprotectin as an outpatient as well. Supervising Physician Co-Signing Physician Notes Agree with DAVID Sexton Abd: Soft, NT, ND, +BS Patient is passing gas now and feeling much better Advance to clear liquid diet Continue current therapy History of Present Illness Reason for Consultation: SBO, Crohn's Disease Attending Physician: Charan Beltran MD History of Present Illness Patient is a 50 yo female with a history of Crohn's ileitis who presents to [facility] with abdominal pain and nausea. She was found to have a small bowel obstruction. The patient was hospitalized for similar issues in September 2019. She responded to conservative therapy at that time, then underwent a colonoscopy that indicated mild ileitis. She reports compliance with her Entyvio infusions. She had been symptom free since early spring. Yesterday she noticed an acute onset of her symptoms of RLQ pain and diarrhea. There was associated nausea and one episode of emesis. She denies rectal bleeding. She is due for Entyvio infusion today. She reports that since being NPO and having steroids initiated, she feels improvement of her symptoms. She wants to go home today and wishes to complete the remainder of her treatment and work-up as an outpatient. No new complaints and no pertinent family history. CBC and metabolic panel are unremarkable for acute concerns. Allergies Allergy/AdvReac Type Severity Reaction Status Date / Time adhesive Allergy Mild BANDAIDS-RED Verified 07/12/20 21:20 BLISTERS codeine Allergy Mild NAUSEA AND Verified 07/12/20 21:20 VOMITING Penicillins Allergy Unknown Unknown in Verified 07/12/20 21:20 childhood Home Medications Medication Instructions Recorded Confirmed Type vedolizumab 300 mg intravenous See Rx Instructions IV .COMPLEX 02/03/20 07/12/20 History solution lorazepam 0.5 mg tablet 0.5 mg PO DAILY PRN #30 tab 02/17/20 07/12/20 Rx sertraline 100 mg tablet 150 mg PO HS #135 tab 02/17/20 07/12/20 Rx warfarin 10 mg tablet 10 mg PO UD #90 tab 02/17/20 07/12/20 Rx warfarin 5 mg tablet 5 mg PO DAILY #30 tab 02/18/20 07/12/20 Rx Patient History Medical History (Updated 07/12/20 @ 23:16 by Cash Chacko DO) Arterial embolism and thrombosis Exacerbation of Crohn's disease Factor 5 Leiden mutation, heterozygous Hyperlipidemia Nonspecific abnormal electrocardiogram (ECG) (EKG) Small bowel obstruction Surgical History H/O colonoscopy (09/2019) History of tooth extraction History of wisdom tooth extraction Hx of cholecystectomy Family History Father Heart disease Hypertension Family history of diabetes mellitus Mother Family history of reaction to anesthesia severe vomiting Family history of diabetes mellitus Family hx colonic polyps Grandmother (Paternal) Family history of diabetes mellitus Aunt Family hx colonic polyps Grandfather (Maternal) Family hx colonic polyps Social History Smoking Status: Current every day smoker Tobacco Type: Cigarettes Cigarettes Per Day: 10 a day; Second Hand Exposure: Yes (father smoked); Do You Dip or Chew Tobacco: No; Tobacco Cessation Education Requested by Patient: No (patient refused) Hx Alcohol Use: No Hx Substance Use: No Preferred Language: Sierra Leonean Communication Ability: Effective Dough Braker Required: No Beliefs That Will Affect Care: None marital status: Current Living Situation: Spouse Other Information That Helps Us Care for You: No Feels Safe at Home: Yes Safety Concerns: Feels Safe At This Time Assistive Devices: None Review of Systems Constitutional: no fever and no chills Eyes: no problem reported Respiratory: no cough and no dyspnea Cardiovascular: no chest pain Gastrointestinal: abdominal pain improved; passing flatus; feels the need to have bowel movement Musculoskeletal: no problem reported Integumentary: no problem reported Neurologic: no problem reported Psychiatric: no problem reported Hematologic / Lymphatic: no unexplained weight loss Physical Exam Constitutional: WD/WN, vitals as above Neck: normal visual inspection Respiratory: normal respiratory effort Cardiovascular: Extremities: no edema Gastrointestinal (Abdomen): Inspection/Auscultation: abdomen normal to inspection and normal bowel sounds Percussion/Palpation: abdomen soft; abdomen nontender Musculoskeletal: Head/Neck/Chest: normocephalic Skin: no rashes Neurologic: Speech / Cognition: normal speech Motor/Sensory: no tremor Psychiatric: A+Ox3, euthymic affect Results & Data ([facility]) Vital Signs (Past 12 Hours) Vital Signs Temp Pulse Resp BP Pulse Ox 07/13/20 07:15 36.8 C 63 16 113/71 96 07/13/20 01:50 36.4 C L 78 18 157/92 H 97 07/13/20 01:32 57 L 20 117/85 94 07/13/20 00:44 73 20 125/76 98 07/12/20 23:45 84 20 123/68 99 07/12/20 23:14 71 20 139/88 98 07/12/20 23:11 96 07/12/20 22:36 61 16 137/67 94 PG Care Time/CCT Total # of Minutes Spent Total Time Spent with Patient: Total time spent is greater than 50% in coordination of care (as documented) at patient's floor/unit and/or counseling patient: Coding Level of Care Code 99592 Office/OBS Consult Lvl 4 Diagnoses SBO (small bowel obstruction) K56.609 Crohn's disease K50.918 Digestive disease complication type: other complication Gastrointestinal tract location: unspecified location (1) Crohn's disease Digestive disease complication type: other complication Gastrointestinal tract location: unspecified location Qualified Code(s): K50.918 - Crohn's disease, unspecified, with other complication
[2020-07-13] MEDS ORDERED: HEPARIN IV BOLUS 3,000 UNITS in SYRINGE 0 ML IV ONE (11:30)
--- NOTE | 2020-07-13 14:19 | History & Physical Bridge Note ---
Date of Service July 13, 2020 History & Physical Bridge Note I have examined the patient, reviewed the History & Physical and in the interval since the performance of the History & Physical I have noted the following changes of clinical significance: no changes noted Patient feeling better subjectively. Small BM this morning and eating clears for lunch. Initially feeling good to go home but agreeable to stay overnight for monitoring and if stable can discharge in AM and have outpatient follow up with GI -- imaging/colorectal surgery referral pending repeat imaging outpatient. Decreased solumedrol to 40mg BID and will taper at discharge. Will need to reschedule Entyvio infusion. WBC trending down. BMP stable. Continue heparin gtt while inpatient and transition back to coumadin at d/c for dvt/factor V def.
[2020-07-13 17:58] LABS: Partial Thromboplastin Ratio 1.7
[2020-07-13 18:05] LABS: Partial Thromboplastin Time 47.3 Seconds (21.0-31.0)
[2020-07-14 00:56] LABS: Partial Thromboplastin Ratio 1.5; Partial Thromboplastin Time 40.8 Seconds (21.0-31.0)
[2020-07-14] MEDS: HEPARIN SODIUM/DEXTROSE 25,000 UNITS/500 ML BAG IV SCH ×2 (01:05→10:23)
[2020-07-14] MEDS: metroNIDAZOLE 500 MG/100 ML BAG IV SCH ×2 (01:06→09:37)
[2020-07-14] MEDS: CIPROFLOXACIN / D5W 400 MG/200 ML BAG IV SCH (01:07)
[2020-07-14] MEDS: NSS + 20MEQ KCL 20 MEQ/1,000 ML BAG IV SCH ×2 (03:19→10:22)
[2020-07-14 07:52] LABS: Basophils # (auto) 0.01 K/uL (0-0.2); Basophils % (auto) 0.1 %; Hematocrit (blood only) 38.1 % (37-47); Hemoglobin 13.1 g/dL (12.0-16.0); Immature Granulocytes # (auto) 0.04 K/uL (0.00-0.02); Immature Granulocytes % (auto) 0.4 %; Lymphocytes # (auto) 1.24 K/uL (1.2-3.4); Lymphocytes % (auto) 13.7 %; Mean Corpuscular Hemoglobin 31.6 pg (25-34); Mean Corpuscular Hgb Conc 34.4 g/dL (32-36); Mean Corpuscular Volume 91.8 fL (80-100); Mean Platelet Volume 11.3 fL (7.4-10.4); Monocytes # (auto) 0.54 K/uL (0.11-0.59); Monocytes % (auto) 5.9 %; Neutrophils # (auto) 7.25 K/uL (1.4-6.5); Neutrophils % (auto) 79.9 %; Platelet Count 263 K/uL (130-400); RDW Coefficient of Variation 13.6 % (11.5-14.5); RDW Standard Deviation 45.5 fL (36.4-46.3); Red Blood Count 4.15 M/uL (4.2-5.4); White Blood Count 9.08 K/uL (4.8-10.8)
[2020-07-14 08:16] LABS: INR 1.3 (0.9-1.1); Partial Thromboplastin Ratio 1.5; Partial Thromboplastin Time 43.1 Seconds (21.0-31.0); Prothrombin Time 13.9 Seconds (9.0-12.0)
[2020-07-14 08:27] LABS: Albumin Level 3.3 gm/dl (3.4-5.0); BUN Creatinine Ratio 16.1 (10-20); Calcium 8.4 mg/dl (8.5-10.1); Creatinine Clr Calc Pharmacy 123.3 ml/min; Est GFR (African American) 114.8; Potassium 3.8 mmol/L (3.5-5.1)
[2020-07-14 08:30] LABS: Bilirubin,Total 0.7 mg/dl (0.2-1); Globulin 3.4 gm/dl (2.5-4.0); Total Protein 6.7 gm/dl (6.4-8.2)
--- NOTE | 2020-07-14 08:45 | XRay Report ---
XR KUB/Abdomen 1 view CLINICAL HISTORY: Small bowel obstruction COMPARISON STUDY: CT scan dated 07/12/2020 FINDINGS: There are dilated central abdominal small bowel loops measuring up to 47 mm in diameter. Th e findings are consistent with the recently described small bowel obstruction. There are surgical cli ps within the right upper quadrant. There are no calcifications suspicious for urinary tract calculi. IMPRESSION: Dilated central abdominal small bowel loops, consistent with a small bowel obstruction. ACT 112: Negative or not required by law. Electronically signed by: Cory Ballard M.D. 07/14/2020 8:44 AM
[2020-07-14] MEDS: methylPREDNISolone 40 MG in SYRINGE 0 ML IV SCH (08:46)
[2020-07-14] MEDS ORDERED: POTASSIUM CHLORIDE 20 MEQ in SODIUM CHLORIDE 0.9% 1,000 ML IV SCH (09:30)
[2020-07-14] MEDS ORDERED: WARFARIN SOD 5 MG TAB PO ONE (11:15)
--- NOTE | 2020-07-14 12:15 | Discharge Summary ---
Date of Service July 14, 2020 Admission HPI Per Admitting Provider The patient is a 50-year-old female with a past medical history including Crohn's disease, hyperlipidemia, depression, chronic thrombosis of bilateral iliac veins, factor V Leiden deficiency, anxiety, tobacco abuse, chronic venous insufficiency, migraine, dysfunctional uterine bleeding, panic disorder and long-term anticoagulant use. She developed acute onset of nausea, vomiting and intermittent loose stools at around 2:00 this afternoon. She does not report any changes in the usual dietary pattern, and she has continued to take her usual medications including those for Crohn's on a regular basis. Admission Exam Per Admitting Provider The patient is awake, alert and oriented 3, well developed and well nourished, normocephalic and atraumatic, lying in bed and in mild acute distress. HEENT--PERRL, EOMI, mucous membranes and oropharynx dry. Neck--supple. No JVD. No bruits. Thyroid normal, trachea midline, no adenopathy. Heart--normal S1 and S2. No murmurs, rubs or gallops. Lungs--clear bilaterally, no respiratory distress, no accessory muscle use. Abdomen--normal bowel sounds and soft. Generalized abdominal discomfort. Nondistended Extremities--no cyanosis or clubbing. No edema. Dermatologic--normal skin turgor, normal color, no abnormal lymph nodes, no rash. Neurologic--cranial nerves II through XII grossly intact. Rheumatologic--normal range of motion. Psychiatric--normal affect. Principal Diagnosis Small Bowel Obstruction Discharge Exam Constitutional WD/WN, vitals as above no acute distress Eyes + anicteric sclerae and PERRL ENMT Ears: no hearing impairment Nose: no external nose abnormality Neck trachea midline, no thyromegaly Respiratory normal respiratory effort, lungs clear to auscultation Cardiovascular RRR, no murmur, no edema Gastrointestinal (Abdomen) normal bowel sounds, soft, nontender, no hepatosplenomegaly Percussion/Palpation: + abdomen tender (minimal tenderness ) Musculoskeletal no cyanosis or clubbing, extremities motor strength 5/5 Skin no rashes, warm and dry Neurologic PERRL, EOMI, accommodation nl, no face palsy, no dysarthria Psychiatric A+Ox3, euthymic affect Lymphatic no cervical or axillary lymphadenopathy Discharge Data Allergies Allergy/AdvReac Type Severity Reaction Status Date / Time adhesive Allergy Mild BANDAIDS-RED Verified 07/12/20 21:20 BLISTERS codeine Allergy Mild NAUSEA AND Verified 07/12/20 21:20 VOMITING Penicillins Allergy Unknown Unknown in Verified 07/12/20 21:20 childhood Consultations 07/12/20 23:13 ED Decision to Admit Stat 07/13/20 01:50 Consult Case Management - Discharge Planning Routine Consult Gastroenterology Routine Ordered Studies 07/12/20 20:38 CT abd pelvis IV con only Urgent 07/14 KUB Hospital Course (1) SBO (small bowel obstruction): Small bowel obstruction with transition point in distal ileum- Likely secondary to inflammation associated with Crohn's exacerbation. NPO and was advanced without issues. To adhere to low fiber diet for next 2 weeks IV Steroids and was discharged on 8 week taper -- 40mg daily for 1 week then decrease 5mg each week for total of 8 Weeks. Abx with Cipro/Flagyl and were subsequently discontinued after discussion with GI. No evidence of abscess or infection on CTA/P Supportive care was given Repeat KUB with obstruction but then patient had successful BM following breakfast and was stable for d/c To have follow up with Dr. Chang outpatient and reschedule her biologic (2) Chronic thrombosis of both iliac veins: Chronic thrombosis of bilateral iliac veins/factor V deficiency- Held warfarin in place of heparin while inpatient--> resumed prior to d/c To follow up with Dr. Miller for repeat INR (3) Factor V deficiency: See above (4) Anxiety: Anxiety with depression- Held oral lorazepam and sertraline while npo, resumed at discharge Lorazepam IV 0.5 mg every 6 hours as needed (5) Depression: See above Will need follow up imaging outpatient with possible referral to colorectal surgeon for intervention pending repeat imaging. (6) Tobacco abuse: Total Time Total Time Spent Total Time Spent (In Minutes): 60 Discharge Plan Discharge Items Patient Disposition: Home - Self-Care Reason For Visit: SBO, CROHNS Discharge Diagnosis: Small Bowel Obstruction Goals: You have been hospitalized for an acute medical problem. During your stay at [facility], we have made an effort to correct the problem that brought you to the hospital while keeping you as comfortable as possible. Medications were used to bring your condition under control and your discharge instructions will include directions for any medications you should take after leaving the hospital. Please make sure you see your Primary Care Provider as part of your follow up plan. Activity: Resume your previous activity Non-emergency contact: Primary Care Provider and [employer] Call non-emergency contact if: you have any medication questions, your symptoms worsen, your pain is concerning for you and you have a fever Follow-up/Referrals: Steve Chang, [Physician] - 07/21/20 11:00 am Zeke Miller MD [Primary Care Provider] - 07/22/20 9:30 am Diet: Low Fiber Diet Comment: low fiber x 2 weeks then advance as tolerated Addtl Attending Provider Instructions: You were hospitalized and found to have a small bowel obstruction. You have been seen by gastroenterology, Dr. Chang, and have been managed conservatively. You will need to reschedule your Entyvio infusion as soon as possible. You will need to follow up with Dr. Chang's office for CT imaging and they may refer you to possible colorectal surgeon pending those results. They will also check further lab testing at that appointment and make further recommendations regarding treatment. You were started on steroids for inflammation and are being sent with a taper at discharge as follows: * Prednisone 40mg daily x 7 days, then decrease by 5mg weekly for total 8 weeks. Please follow up with your primary care provider in the next week to monitor your progress. Please return to the emergency department with any worsening pain, nausea, vomiting or for any other symptoms that are concerning for you. It has been a pleasure being a part of the medical team providing for you while you have been in the hospital. Take care! Pending Studies at Discharge: No Stand-Alone Forms: My [facility], Work/School Release (Inpt) Medications and DC Order Prescriptions: New prednisone 10 mg tablet 10 mg PO DAILY Qty: 126 RF: 0 Continued warfarin [Coumadin] 5 mg tablet 5 mg PO DAILY Qty: 30 RF: 2 sertraline [Zoloft] 100 mg tablet 150 mg PO HS Qty: 135 RF: 3 warfarin [Jantoven] 10 mg tablet 10 mg PO UD Qty: 90 RF: 0 lorazepam 0.5 mg tablet 0.5 mg PO DAILY PRN (Reason: Panic Attack(S)) Qty: 30 RF: 0 Entyvio 300 mg recon soln See Rx Instructions IV .COMPLEX RF: 0 Discharge Orders: Discharge Order (Routine); Ordered 07/14/20 Ordered By: Krystal Wing/Other Patient Handouts: Small Bowel Obstruction, What to Know When TakingWarfarin, Understanding Intestinal Obstruction, Warfarin tablets Admission Data Admit Date/Time: 07/13/20 00:14 Attending Provider: Charan Beltran Admit Provider: Miguel Gu Primary Care Provider: Zeke Miller Other Providers: Steve Chang ; Miguel Gu Other Interventions: Discharge Summary Assessment (RN) Last Done: 07/14/20 11:06 Coding Level of Care Code D/C Day Management >30 mins Diagnoses SBO (small bowel obstruction) K56.609 Chronic thrombosis of both iliac veins I82.523 Factor V deficiency D68.2 Anxiety F41.9 Depression F32.9 Tobacco abuse Z72.0
== END 2020-07-14 11:38 | disposition home or self-care (01) | DRG 386 ==
LOC: ED 20:10 → 3N 07-13 00:14 → INTOOBSV 07-13 00:14 → SUATTDRO 07-13 00:14 → 3N 07-13 01:36

== ENCOUNTER 2020-12-22 09:38 | Inpatient (IN) ==
[2020-12-22] MEDS ORDERED: SODIUM CHLORIDE 0.9% 1000ML 2,000 ML IV ONE (10:04)
[2020-12-22] MEDS ORDERED: KETOROLAC TROMETHAMINE 15 MG/ML VIAL IV ONE (10:04)
[2020-12-22] MEDS ORDERED: MoRPHine SULFATE 4 MG/ML 1 ML CARP\\VIAL IV STA (10:04)
[2020-12-22] MEDS ORDERED: ONDANSETRON INJ 2 MG/ML 2 ML VIAL IV STA (10:04)
--- NOTE | 2020-12-22 10:11 | Emergency Department Note ---
Impression & Plan SBO (small bowel obstruction), Abdominal pain, Bowel disease, inflammatory ED Provider Note NAME: JAYDE CHAPPELL AGE: 50 SEX: F : 1970 ARRIVES VIA: Walk-In INFORMANT: Patient, ED PROVIDER(S): Alan Valenzuela DO CHIEF COMPLAINT: abdominal pain HPI: Patient is a 50-year-old female who presents to the ER for abdominal pain. It started midday Liam in the epigastric region. Associate with nausea, vomiting, and diarrhea. Denies any dysuria, urgency, or frequency. Last episode of vomiting was around 4 AM. She notes this feels consistent with her previous bouts of Crohn's. Denies any chest pain or shortness of breath. Pain is constant. No other exacerbating or remitting factors. She follows with Ciarra Dowd from GI. She does take Coumadin. No blood in vomit or stool. History of cholecystectomy ROS: See above HPI for pertinent positives & negatives. A total of 10 systems reviewed and were otherwise negative. PAST MEDICAL HISTORY:See Below PAST SURGICAL HISTORY:See Below FAMILY HISTORY:See Below SOCIAL HISTORY:See Below HOME MEDICATIONS:See Below ALLERGIES:See Below VITALS:See Below PHYSICAL EXAMINATION: GENERAL: Sitting up in bed, alert, ill-appearing, disheveled, holding the epigastric region EYE EXAM: normal conjunctiva. OROPHARYNX: no exudate, no erythema, lips, buccal mucosa, and tongue normal and mucous membranes are moist NECK: supple, no nuchal rigidity, no adenopathy, non-tender LUNGS: Clear to auscultation. Normal chest wall mechanics HEART: no murmurs, S1 normal and S2 normal ABDOMEN: abdomen soft, tender in the epigastric region, normo-active bowel sounds, no masses, no rebound or guarding. UPPER EXTREMITIES: upper extremities are grossly normal. LOWER EXTREMITIES: No pitting edema. NEURO EXAM: Normal sensorium, cranial nerves II-XII grossly intact, normal speech, no gross weakness of arms, no gross weakness of legs. MEDICAL DECISION MAKING: Patient is a 50-year-old female with a past medical history inflammatory bowel disease who presents ER for abdominal pain which started yesterday associated with vomiting. Last bowel movement was earlier this morning. IV was established blood work was obtained. Labs show mild leukocytosis 11 point11,200. No significant anemia. INR was therapeutic at 2.1. BMP with LFTs bilirubin and lipase was unremarkable. UA was contaminated with multiple epithelial cells. CT abdomen pelvis shows inflammation of the bile with a low- grade small bowel obstruction. Case was discussed with Dr. Gold not any hospitalist group. Paged gastroenterology but have not heard back. Will await their further recommendations. Patient was given fluids, Toradol, Zofran and narcotics. She felt significantly better. She was updated bedside. Triage Nursing notes reviewed. Limited review of prior medical records performed Vital Signs: reviewed and remarkable for no significant abnormalities Differential diagnosis: Differential diagnoses includes but is not limited to gastritis, peptic ulcer disease, GERD, gallbladder disease, pancreatitis, small bowel obstruction, acute coronary syndrome, pericarditis, ischemic bowel, irritable bowel disease, irritable bowel syndrome, appendicitis, diverticulitis, malignancy, hernia, urinary tract infection, torsion, [/ectopic (if female)], perforation, trauma, infectious. ER treatment provided: See below Diagnostics interpreted by me: ECG: none Cardiac Monitoring: An order was placed for continuous cardiac monitoring. The monitor shows a rate of 70 with sinus rhythm. Laboratory studies: As stated above and show below. Imaging studies: CT abdomen pelvis as discussed above Consultation(s): Discussed with not any hospitalist as discussed above Awaiting callback from gastroenterology Procedures: none Critical Care: None Past Med/Surg History Medical History Anticoagulant long-term use Anxiety Crohn's disease Depression Exacerbation of Crohn's disease Factor 5 Leiden mutation, heterozygous Hyperlipidemia Panic disorder Surgical History H/O colonoscopy (09/2019) History of tooth extraction History of wisdom tooth extraction Hx of cholecystectomy Family History Father Heart disease Hypertension Family history of diabetes mellitus Mother Family history of reaction to anesthesia severe vomiting Family history of diabetes mellitus Family hx colonic polyps Grandmother (Paternal) Family history of diabetes mellitus Aunt Family hx colonic polyps Grandfather (Maternal) Family hx colonic polyps Social History Smoking Status: Current every day smoker Tobacco Type: Cigarettes Cigarettes Per Day: 15 a day; Second Hand Exposure: Yes (father smoked); Hx Alcohol Use: Yes Alcohol type: wine Hx Substance Use: No Preferred Language: [place] Communication Ability: Effective Broadcast Maintenance Technician Required: No Beliefs That Will Affect Care: None marital status: Current Living Situation: Spouse Feels Safe at Home: Yes Assistive Devices: Glasses Allergies Allergies Allergy/AdvReac Type Severity Reaction Status Date / Time adhesive Allergy Mild BANDAIDS-RED Verified 12/22/20 11:15 BLISTERS codeine Allergy Mild NAUSEA AND Verified 12/22/20 11:15 VOMITING Penicillins Allergy Unknown Unknown in Verified 12/22/20 11:15 childhood Home Meds Home Medications Medication Instructions Recorded Confirmed vedolizumab 300 mg intravenous See Rx Instructions IV .COMPLEX 02/03/20 12/22/20 solution ondansetron HCl [Zofran] 4 mg PO Q6H PRN 12/22/20 12/22/20 Previous Rx's Medication Instructions Recorded sertraline 100 mg tablet 150 mg PO HS #135 tab 02/17/20 lorazepam 0.5 mg tablet 0.5 mg PO DAILY PRN #30 tab 11/16/20 warfarin 5 mg tablet 10 mg PO .COMPLEX #60 tab 12/17/20 Results & Data (ED) Vital Signs Vital Signs - 24 hr 12/22/20 09:50 12/22/20 11:50 Temperature 36.7 C Temperature Source Temporal Artery Scan Pulse Rate 80 Pulse Rate [Finger] 72 Pulse Rhythm [Finger] Regular Pulse Strength [Finger] Normal Respiratory Rate 18 18 Respiratory Effort / Characteristics Non-Labored Spontaneous Respiratory Depth Normal Respiratory Pattern Regular Blood Pressure 111/79 Blood Pressure [Left Arm] 118/69 Blood Pressure Mean 89 Blood Pressure Mean [Left Arm] 85 Pulse Oximetry 94 98 Oxygen Delivery Method Room Air Room Air Sepsis Recent Fever Within 48 Hours No Sepsis New/Unexplained Change in Mental Status N/A Sepsis Action Taken by Nursing No Action Required Laboratory Data Result diagrams: 12/22/20 10:31 12/22/20 10:31 Lab Results 12/22/20 12/22/20 12/22/20 Range/Units 10:05 10:11 10:31 WBC 11.63 H (4.8-10.8) K/uL RBC 4.87 (4.2-5.4) M/uL Hgb 15.3 (12.0-16.0) g/dL Hct 44.0 (37-47) % MCV 90.3 (80-100) fL MCH 31.4 (25-34) pg MCHC 34.8 (32-36) g/dL RDW Std Deviation 44.7 (36.4-46.3) fL RDW Coeff of Rain 13.6 (11.5-14.5) % Plt Count 280 (130-400) K/uL MPV 10.7 H (7.4-10.4) fL Immature Gran % (Auto) 0.3 % Neut % (Auto) 79.3 % Lymph % (Auto) 13.6 % [place] % (Auto) 6.4 % Eos % (Auto) 0.3 % Baso % (Auto) 0.1 % Neut # (Auto) 9.23 H (1.4-6.5) K/uL Lymph # (Auto) 1.58 (1.2-3.4) K/uL [place] # (Auto) 0.75 H (0.11-0.59) K/uL Eos # (Auto) 0.03 (0-0.5) K/uL Baso # (Auto) 0.01 (0-0.2) K/uL Immature Gran # (Auto) 0.03 H (0.00-0.02) K/uL PT (9.0-12.0) Seconds INR (0.9-1.1) Sodium (136-145) mmol/L Potassium (3.5-5.1) mmol/L Chloride (98-107) mmol/L Carbon Dioxide (21-32) mmol/L Anion Gap (3-11) BUN (7-18) mg/dl Creatinine (0.6-1.2) mg/dl Est Cr Clr Drug Dosing ml/min Est GFR ( Amer) Est GFR (Non-Af Amer) BUN/Creatinine Ratio (10-20) Glucose (70-99) mg/dl Calcium (8.5-10.1) mg/dl Total Bilirubin (0.2-1) mg/dl AST (15-37) U/L ALT (12-78) U/L Alkaline Phosphatase (45-117) U/L Total Protein (6.4-8.2) gm/dl Albumin (3.4-5.0) gm/dl Globulin (2.5-4.0) gm/dl Albumin/Globulin Ratio (0.9-2) Lipase (73-393) U/L Urine Color Dark Yellow Urine Appearance Cloudy A (Clear) Urine pH 5.5 (4.5-7.5) Ur Specific [place] 1.034 H (1.000-1.030) Urine Protein Trace H (Negative) Urine Glucose (UA) Negative (Negative) Urine Ketones Negative (Negative) Urine Blood Negative (Negative) Urine Nitrite Negative (Negative) Urine Bilirubin 1+ H (Negative) Urine Urobilinogen Negative (Negative) Ur Leukocyte Esterase Negative (Negative) Urine WBC (Auto) 1-5 (0-5) /hpf Urine RBC (Auto) 0-4 (0-4) /hpf U Hyaline Cast (Auto) 10-30 H (0-5) /lpf U Epithel Cells (Auto) >30 H (0-5) /lpf Urine Bacteria (Auto) Negative (Negative) POC Ur Test NEG (NEG) COVID-19 Eval Order 12/22/20 12/22/20 12/22/20 Range/Units 10:31 10:31 12:28 WBC (4.8-10.8) K/uL RBC (4.2-5.4) M/uL Hgb (12.0-16.0) g/dL Hct (37-47) % MCV (80-100) fL MCH (25-34) pg MCHC (32-36) g/dL RDW Std Deviation (36.4-46.3) fL RDW Coeff of Rain (11.5-14.5) % Plt Count (130-400) K/uL MPV (7.4-10.4) fL Immature Gran % (Auto) % Neut % (Auto) % Lymph % (Auto) % [place] % (Auto) % Eos % (Auto) % Baso % (Auto) % Neut # (Auto) (1.4-6.5) K/uL Lymph # (Auto) (1.2-3.4) K/uL [place] # (Auto) (0.11-0.59) K/uL Eos # (Auto) (0-0.5) K/uL Baso # (Auto) (0-0.2) K/uL Immature Gran # (Auto) (0.00-0.02) K/uL PT 19.8 H (9.0-12.0) Seconds INR 2.1 H (0.9-1.1) Sodium 137 (136-145) mmol/L Potassium 3.7 (3.5-5.1) mmol/L Chloride 105 (98-107) mmol/L Carbon Dioxide 27 (21-32) mmol/L Anion Gap 6.0 (3-11) BUN 18 (7-18) mg/dl Creatinine 0.89 (0.6-1.2) mg/dl Est Cr Clr Drug Dosing 98.0 ml/min Est GFR ( Amer) 88.8 Est GFR (Non-Af Amer) 76.6 BUN/Creatinine Ratio 20.6 H (10-20) Glucose 111 H (70-99) mg/dl Calcium 9.1 (8.5-10.1) mg/dl Total Bilirubin 0.6 (0.2-1) mg/dl AST 12 L (15-37) U/L ALT 22 (12-78) U/L Alkaline Phosphatase 88 (45-117) U/L Total Protein 8.0 (6.4-8.2) gm/dl Albumin 3.8 (3.4-5.0) gm/dl Globulin 4.2 H (2.5-4.0) gm/dl Albumin/Globulin Ratio 0.9 (0.9-2) Lipase 83 (73-393) U/L Urine Color Urine Appearance (Clear) Urine pH (4.5-7.5) Ur Specific [place] (1.000-1.030) Urine Protein (Negative) Urine Glucose (UA) (Negative) Urine Ketones (Negative) Urine Blood (Negative) Urine Nitrite (Negative) Urine Bilirubin (Negative) Urine Urobilinogen (Negative) Ur Leukocyte Esterase (Negative) Urine WBC (Auto) (0-5) /hpf Urine RBC (Auto) (0-4) /hpf U Hyaline Cast (Auto) (0-5) /lpf U Epithel Cells (Auto) (0-5) /lpf Urine Bacteria (Auto) (Negative) POC Ur Test (NEG) COVID-19 Eval Order [facility]Rsv at [facility] Administered Medications Discontinued Medications Sodium Chloride (Nss 1000ml) 2,000 mls @ 999 mls/hr IV .Q2H1M ONE Stop: 05/11/21 12:04 Last Infusion: 12/22/20 11:30 Dose: 0 mls/hr Documented by: [id number] Admin: 12/22/20 10:30 Dose: 999 mls/hr Documented by: [id number] Ioversol (Optiray 300 100ml) 87 ml IV ONCE ONE Stop: 12/22/20 11:11 Last Admin: 12/22/20 11:11 Dose: 87 ml Documented by: [id number] Ketorolac Tromethamine (Ketorolac Tromethamine 15 Mg/Ml Vial) 10 mg IV NOW ONE Stop: 12/22/20 10:05 Last Admin: 12/22/20 10:33 Dose: 10 mg Documented by: [id number] Morphine Sulfate (Morphine Sulfate 4 Mg/Ml 1 Ml Carp\Vial) 4 mg IV NOW STA Stop: 12/22/20 10:05 Last Admin: 12/22/20 10:33 Dose: 4 mg Documented by: [id number] Ondansetron HCl (Ondansetron Inj 2 Mg/Ml 2 Ml Vial) 4 mg IV NOW STA Stop: 12/22/20 10:05 Last Admin: 12/22/20 10:33 Dose: 4 mg Documented by: [id number] Imaging Data Radiologist's Impression: Abdomen/Pelvis CT 12/22/20 10:05 CT SCAN OF THE ABDOMEN AND PELVIS WITH IV CONTRAST CLINICAL HISTORY: Nausea and vomiting. Generalized abdominal pain. Reported history of Crohn's disease. COMPARISON STUDY: Abdominal CT dated 07/23/2020. TECHNIQUE: Following the IV administration of 87 cc of Optiray 300, CT scan of the abdomen and pelvis is performed from the lung bases to the proximal femora. Images are reviewed in the axial, sagittal, and coronal planes. IV contrast was administered without complication. A dose lowering technique was utilized adhering to the principles of ALARA. CT DOSE: 1089.91 mGy.cm FINDINGS: Lung bases: The heart is normal in size and without pericardial effusion. The lung bases are clear. There is a small hiatal hernia. Liver: The contrast-enhanced liver is normal in size, contour, and attenuation. There is mild intrahepatic biliary ductal dilatation. The hepatic veins and portal veins are patent. Gallbladder: Surgically absent noting clips in the gallbladder fossa. Spleen: Normal in size and attenuation. Pancreas: Unremarkable. Adrenal glands: Unremarkable. Kidneys: The contrast enhanced kidneys are normal in size and without hydronephrosis. The kidneys enhance symmetrically. Abdominal vasculature: The abdominal aorta is normal in course and caliber. The inferior vena cava and iliac veins are diminutive and calcified, similar to previous. Large pelvic venous collaterals are noted. Bowel: There is mild wall thickening with mucosal hyperemia seen involving the distal and terminal ileum. This extends over 10 cm in length. The immediately upstream small bowel loops are distended and fluid-filled, measuring up to 3.4 cm diameter. This likely represents low-grade obstruction. There is no significant surrounding inflammation. There is no evidence of fistula or abscess. The jejunum is decompressed. The appendix is normal. Peritoneum: There is trace perihepatic ascites, as well as a small volume of free fluid in the pelvis. No intraperitoneal free air is identified. Lymphadenopathy: None. Pelvic viscera: The bladder is decompressed and normal as visualized. The uterus and adnexa are normal in appearance. Skeletal structures: No lytic or blastic lesions are seen. IMPRESSION: 1. There is a long segment of mild wall thickening and mucosal hyperemia involving the distal/terminal ileum. Given the patient's clinical history this likely represents mild active Crohn's disease. 2. The ileum is dilated and fluid-filled. This likely represents low-grade obstruction secondary to inflammation/active Crohn's disease. The stomach and jejunum are decompressed. 3. A small volume of abdominopelvic ascites is likely reactive. 4. 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 5. Additional findings as above. ACT 112: Negative or not required by law. Electronically signed by: Zeke Foy M.D. 12/22/2020 12:07 PM Discharge Plan Visit Data Chief Complaint: Abdominal Pain Stated Complaint: STOMACH PAIN ED Provider: Alan Valenzuela Discharge Problem: SBO (small bowel obstruction), Abdominal pain, Bowel disease, inflammatory Forms Stand Alone Forms: My [employer] Prescriptions Prescriptions: No Action warfarin 5 mg tablet 10 mg PO .COMPLEX Qty: 60 RF: 5 lorazepam 0.5 mg tablet 0.5 mg PO DAILY PRN (Reason: Panic Attack(S)) Qty: 30 RF: 0 sertraline [Zoloft] 100 mg tablet 150 mg PO HS Qty: 135 RF: 3 Entyvio 300 mg recon soln See Rx Instructions IV .COMPLEX RF: 0 ondansetron HCl [Zofran] 4 mg Tablet 4 mg PO Q6H PRN (Reason: Nausea) RF: 0 Discharge Problem: Abdominal pain Qualifiers: Abdominal location: unspecified location Qualified Code(s): R10.9 - Unspecified abdominal pain
[2020-12-22 10:24] LABS: Appearance Urine Cloudy (Clear); Bacteria Urine Automated Negative (Negative); Blood Urine Negative (Negative); Color Urine Dark Yellow; Epithelial Cell Urine Auto >30 /lpf (0-5); Glucose Urine UA Negative (Negative); Ketones Urine Negative (Negative); Leukocyte Esterase Urine Negative (Negative); Nitrite Urine Negative (Negative); Protein Urine Trace (Negative); Specific Gravity Urine 1.034 (1.000-1.030); Urobilinogen Urine Negative (Negative); pH Urine 5.5 (4.5-7.5)
[2020-12-22 10:37] LABS: Bilirubin Urine 1+ (Negative)
[2020-12-22 10:43] LABS: Basophils # (auto) 0.01 K/uL (0-0.2); Basophils % (auto) 0.1 %; Eosinophils # (auto) 0.03 K/uL (0-0.5); Eosinophils % (auto) 0.3 %; Hemoglobin 15.3 g/dL (12.0-16.0); Immature Granulocytes # (auto) 0.03 K/uL (0.00-0.02); Immature Granulocytes % (auto) 0.3 %; Lymphocytes # (auto) 1.58 K/uL (1.2-3.4); Lymphocytes % (auto) 13.6 %; Mean Corpuscular Hemoglobin 31.4 pg (25-34); Mean Corpuscular Hgb Conc 34.8 g/dL (32-36); Mean Corpuscular Volume 90.3 fL (80-100); Mean Platelet Volume 10.7 fL (7.4-10.4); Monocytes # (auto) 0.75 K/uL (0.11-0.59); Monocytes % (auto) 6.4 %; Neutrophils # (auto) 9.23 K/uL (1.4-6.5); Neutrophils % (auto) 79.3 %; Platelet Count 280 K/uL (130-400); RDW Coefficient of Variation 13.6 % (11.5-14.5); RDW Standard Deviation 44.7 fL (36.4-46.3); Red Blood Count 4.87 M/uL (4.2-5.4); White Blood Count 11.63 K/uL (4.8-10.8)
[2020-12-22 10:51] LABS: RBC Urine Automated 0-4 /hpf (0-4)
[2020-12-22 10:53] LABS: INR 2.1 (0.9-1.1); Prothrombin Time 19.8 Seconds (9.0-12.0)
[2020-12-22 11:00] LABS: Albumin Level 3.8 gm/dl (3.4-5.0); BUN Creatinine Ratio 20.6 (10-20); Calcium 9.1 mg/dl (8.5-10.1); Est GFR (African American) 88.8; Est GFR (Non-African American) 76.6; Potassium 3.7 mmol/L (3.5-5.1)
[2020-12-22 11:03] LABS: Albumin Globulin Ratio 0.9 (0.9-2); Bilirubin,Total 0.6 mg/dl (0.2-1); Globulin 4.2 gm/dl (2.5-4.0)
[2020-12-22] MEDS ORDERED: OPTIRAY 300 100mL IV ONE (11:10)
--- NOTE | 2020-12-22 12:09 | CT Scan Report ---
CT SCAN OF THE ABDOMEN AND PELVIS WITH IV CONTRAST CLINICAL HISTORY: Nausea and vomiting. Generalized abdominal pain. Reported history of Crohn's dise ase. COMPARISON STUDY: Abdominal CT dated 07/23/2020. TECHNIQUE: Following the IV administration of 87 cc of Optiray 300, CT scan of the abdomen and pelvi s is performed from the lung bases to the proximal femora. Images are reviewed in the axial, sagittal , and coronal planes. IV contrast was administered without complication. A dose lowering technique wa s utilized adhering to the principles of ALARA. CT DOSE: 1089.91 mGy.cm FINDINGS: Lung bases: The heart is normal in size and without pericardial effusion. The lung bases are clear. T here is a small hiatal hernia. Liver: The contrast-enhanced liver is normal in size, contour, and attenuation. There is mild intrahe patic biliary ductal dilatation. The hepatic veins and portal veins are patent. Gallbladder: Surgically absent noting clips in the gallbladder fossa. Spleen: Normal in size and attenuation. Pancreas: Unremarkable. Adrenal glands: Unremarkable. Kidneys: The contrast enhanced kidneys are normal in size and without hydronephrosis. The kidneys enh ance symmetrically. Abdominal vasculature: The abdominal aorta is normal in course and caliber. The inferior vena cava an d iliac veins are diminutive and calcified, similar to previous. Large pelvic venous collaterals are noted. Bowel: There is mild wall thickening with mucosal hyperemia seen involving the distal and terminal il eum. This extends over 10 cm in length. The immediately upstream small bowel loops are distended and fluid-filled, measuring up to 3.4 cm diameter. This likely represents low-grade obstruction. There is no significant surrounding inflammation. There is no evidence of fistula or abscess. The jejunum is decompressed. The appendix is normal. Peritoneum: There is trace perihepatic ascites, as well as a small volume of free fluid in the pelvis . No intraperitoneal free air is identified. Lymphadenopathy: None. Pelvic viscera: The bladder is decompressed and normal as visualized. The uterus and adnexa are rajiv l in appearance. Skeletal structures: No lytic or blastic lesions are seen. IMPRESSION: 1. There is a long segment of mild wall thickening and mucosal hyperemia involving the distal/termina l ileum. Given the patient's clinical history this likely represents mild active Crohn's disease. 2. The ileum is dilated and fluid-filled. This likely represents low-grade obstruction secondary to i nflammation/active Crohn's disease. The stomach and jejunum are decompressed. 3. A small volume of abdominopelvic ascites is likely reactive. 4. 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 5. Additional findings as above. ACT 112: Negative or not required by law. Electronically signed by: Zeke Foy M.D. 12/22/2020 12:07 PM
--- NOTE | 2020-12-22 12:46 | History & Physical Report ---
Date of Service December 22, 2020 Assessment & Plan (1) Crohn's disease of ileum with complication: Patient has acute Crohn's flare with ileitis and low-grade small bowel obstruction. Symptomatically improved. Will admit for further evaluation. Bowel rest, I can order clear liquids if the patient feels she can tolerate as she is doing well with ice chips. Hold off on NG tube placement for now unless patient starts to have significant vomiting or increasing abdominal pain. IV hydration. Solu-Medrol 60 mg daily, first dose now. Patient is on vedolizumab infusions, had been doing well with these and presume she will continue after discharge. Patient follows with Dr. Chang, will consult his service for further recommendations. 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 INR is 2.1. We will hold warfarin until patient is back on a full diet. If INR drops below 2, consider full dose Lovenox until able to resume oral anticoagulation. (3) Anxiety: Patient is on lorazepam and Zoloft, will order if patient is able to tolerate p.o.'s. History of Present Illness Primary Care Provider: Zeke Miller MD This is a 50-year-old female with past medical history of Crohn's ileitis and factor V deficiency that presents today complaining of abdominal pain. Patient is pleasant a good historian. Patient has longstanding history of Crohn's disease, follows up with GI regularly. Has been doing well and her last exacerbation was in June 2020. However, starting approximately 2 days ago, she started to have some mild abdominal symptoms. This is more of a crampy pain in the lower quadrants, left over right. This became more severe the next morning and she started to have nausea with vomiting. She had some Zofran at home which she used without any relief. She was not able to take any medications nor she able to handle any liquids or diet. This morning the pain persisted, she did have a small watery bowel movement which did relieve the pain somewhat but continued to have symptoms. Patient's eventually convinced patient to come to the emergency for further evaluation. Patient tells me she is feeling much better now. She was given Zofran, morphine, and Toradol with relief. She has been taking ice chips without any worsening of her symptoms. Imaging shows ileitis along with a low-grade bowel obstruction. Patient is now being admitted for further evaluation and treatment. Allergies Allergy/AdvReac Type Severity Reaction Status Date / Time adhesive Allergy Mild BANDAIDS-RED Verified 12/22/20 11:15 BLISTERS codeine Allergy Mild NAUSEA AND Verified 12/22/20 11:15 VOMITING Penicillins Allergy Unknown Unknown in Verified 12/22/20 11:15 childhood Home Medications Medication Instructions Recorded Confirmed Type vedolizumab 300 mg intravenous See Rx Instructions IV .COMPLEX 02/03/20 12/22/20 History solution sertraline 100 mg tablet 150 mg PO HS #135 tab 02/17/20 12/22/20 Rx lorazepam 0.5 mg tablet 0.5 mg PO DAILY PRN #30 tab 11/16/20 12/22/20 Rx warfarin 5 mg tablet 10 mg PO .COMPLEX #60 tab 12/17/20 12/22/20 Rx ondansetron HCl [Zofran] 4 mg PO Q6H PRN 12/22/20 12/22/20 History Past Med/Surg History Medical History Anticoagulant long-term use Anxiety Crohn's disease Depression Exacerbation of Crohn's disease Factor 5 Leiden mutation, heterozygous Hyperlipidemia Panic disorder Surgical History H/O colonoscopy (09/2019) History of tooth extraction History of wisdom tooth extraction Hx of cholecystectomy Family History Father Heart disease Hypertension Family history of diabetes mellitus Mother Family history of reaction to anesthesia severe vomiting Family history of diabetes mellitus Family hx colonic polyps Grandmother (Paternal) Family history of diabetes mellitus Aunt Family hx colonic polyps Grandfather (Maternal) Family hx colonic polyps Social History Smoking Status: Current every day smoker Tobacco Type: Cigarettes Cigarettes Per Day: 15 a day; Second Hand Exposure: Yes (father smoked); Hx Alcohol Use: Yes Alcohol type: wine Hx Substance Use: No Preferred Language: Moldovan Communication Ability: Effective Sheet Rock Layer Required: No Beliefs That Will Affect Care: None marital status: Current Living Situation: Spouse Feels Safe at Home: Yes Assistive Devices: Glasses Review of Systems Constitutional: + anorexia; no fever, no chills, no body aches and no fatigue Respiratory: no cough, no chest congestion, no dyspnea, no dyspnea on exertion, no pain on inspiration and no pain with cough Cardiovascular: no chest pain, no chest pain at rest, no radiating jaw, neck or arm pain, no dyspnea, no dyspnea on exertion and no orthopnea Gastrointestinal: + abdominal pain, + nausea, + vomiting, + cramping and + diarrhea/loose stools; no hematemesis, no dysphagia, no blood in stools and no melena Genitourinary: no dysuria, no difficulty urinating, no urinary frequency, no urinary hesitancy and no urinary urgency Musculoskeletal: no back pain, no neck pain, no radicular pain, no loss of height and no joint pain Neurologic: as per Subjective / HPI Psychiatric: as per Subjective / HPI Endocrine: as per Subjective / HPI Physical Exam Constitutional: cooperative and comfortable; no acute distress and not ill appearing ENMT: Mouth: no oral mucosal abnormality Respiratory: normal respiratory effort Auscultation: lungs clear to auscultation bilaterally; no crackles, no rales and no wheezes Cardiovascular: Rate/Rhythm: regular rate and regular rhythm Heart Sounds: normal S1 and normal S2 Vessels: no JVD and no carotid bruit Extremities: no edema Gastrointestinal (Abdomen): Inspection/Auscultation: abdomen normal to inspection and + hypoactive bowel sounds; abdomen not distended Percussion/Palpation: abdomen soft; abdomen nontender, no guarding and abdomen not rigid Musculoskeletal: no cyanosis or clubbing, extremities motor strength 5/5 Skin: no rashes, warm and dry Neurologic: PERRL, EOMI, accommodation nl, no face palsy, no dysarthria Psychiatric: A+Ox3, euthymic affect Results & Data Results & Data ([facility]) Vital Signs (Past 12 Hours) Vital Signs Temp Pulse Pulse Resp BP BP Pulse Ox 12/22/20 11:50 72 18 118/69 98 12/22/20 09:50 36.7 C 80 18 111/79 94 PG Care Time/CCT Total # of Minutes Spent Total Time Spent with Patient: Total time spent is greater than 50% in coordination of care (as documented) at patient's floor/unit and/or counseling patient: Coding Level of Care Code 42204 Initial Inpt Care Lvl 3 Diagnoses Crohn's disease of ileum with complication K50.019 Factor V deficiency D68.2 Anxiety F41.9
[2020-12-22 13:30] LABS: Influenza A virus by PCR Negative (Neg); Influenza B virus by PCR Negative (Neg); RSV by PCR Negative (Neg); SARS CoV2 RNA(COVID-19) InHosp NEGATIVE (Negative)
[2020-12-22] MEDS ORDERED: ACETAMINOPHEN 325 MG TAB PO PRN (14:20)
[2020-12-22] MEDS ORDERED: ONDANSETRON INJ 2 MG/ML 2 ML VIAL IV PRN (14:20)
[2020-12-22] MEDS ORDERED: LORazepam 0.5 MG TAB PO PRN (14:20)
[2020-12-22] MEDS: SODIUM CHLORIDE 0.9% 1000ML 1,000 ML IV SCH (14:37)
[2020-12-22] MEDS: methylPREDNISolone 60 MG in SYRINGE 0 ML IV SCH (16:31)
[2020-12-22] MEDS ORDERED: SERTRALINE HCL 50 MG TABLET PO SCH (21:00)
[2020-12-23] MEDS: SODIUM CHLORIDE 0.9% 1000ML 1,000 ML IV SCH ×2 (01:11→11:04)
[2020-12-23 07:21] LABS: Eosinophils # (auto) 0.01 K/uL (0-0.5); Eosinophils % (auto) 0.1 %; Hematocrit (blood only) 36.7 % (37-47); Hemoglobin 12.5 g/dL (12.0-16.0); Immature Granulocytes # (auto) 0.02 K/uL (0.00-0.02); Immature Granulocytes % (auto) 0.2 %; Lymphocytes # (auto) 1.56 K/uL (1.2-3.4); Lymphocytes % (auto) 16.8 %; Mean Corpuscular Hemoglobin 30.8 pg (25-34); Mean Corpuscular Hgb Conc 34.1 g/dL (32-36); Mean Corpuscular Volume 90.4 fL (80-100); Mean Platelet Volume 10.3 fL (7.4-10.4); Monocytes # (auto) 0.57 K/uL (0.11-0.59); Monocytes % (auto) 6.2 %; Neutrophils % (auto) 76.7 %; Platelet Count 233 K/uL (130-400); RDW Coefficient of Variation 13.7 % (11.5-14.5); RDW Standard Deviation 45.5 fL (36.4-46.3); Red Blood Count 4.06 M/uL (4.2-5.4); White Blood Count 9.26 K/uL (4.8-10.8)
[2020-12-23 07:35] LABS: INR 1.8 (0.9-1.1); Prothrombin Time 17.8 Seconds (9.0-12.0)
[2020-12-23 08:18] LABS: BUN Creatinine Ratio 21.3 (10-20); Calcium 7.9 mg/dl (8.5-10.1); Est GFR (African American) 125.6; Est GFR (Non-African American) 108.4; Potassium 3.6 mmol/L (3.5-5.1)
[2020-12-23] MEDS: methylPREDNISolone 60 MG in SYRINGE 0 ML IV SCH (09:10)
--- NOTE | 2020-12-23 09:38 | Gastrointestinal Consultation ---
Date of Consultation December 23, 2020 Assessment & Plan (1) Crohn's disease of ileum with complication: Pt is a 50 y.o. female with Crohn's ileitis admitted with suspected PSBO, now asymptomatic. 1. Advance diet to soft, low residue diet. 2. Discussed with Dr. Farrar. Stable for discharge from GI standpoint if tolerates PO for lunch. 3. Discharge home on Prednisone taper starting at 40 mg daily with dose reduction of 5 mg weekly until complete. 4. Ab testing prior to next Entyvio infusion which is scheduled for January 08, 2021. 5. Outpatient follow up in our office within 2 weeks of discharge. Thank you for allowing us to participate in the care of this pleasant patient. If you have questions or concerns, please do not hesitate to contact us. Supervising Physician Co-Signing Physician Notes I agree with the plan as documented by HEATHER Panda. The patient was discharged from the hospital and left before I could see her. History of Present Illness Reason for Consultation: Crohn's flare Requesting Physician: Dr. Gold Attending Physician: Sina Farrar DO History of Present Illness Patient is a very pleasant 50 y.o. female with a history of Crohn's ileitis currently on Entyvio infusions at 300 mg IV every 8 weeks. She routinely follows with our office and was just evaluated by Ciarra Dowd PA-C last week via telehealth. At that time, she was doing well. She reports that she suddenly developed abdominal pain and n/v Monday which persisted into Monday prompting ER evaluation. She did undergo a CT a/p which demonstrated a 10 cm segment of distal ileum with thickening consistent with Crohn's disease but no stenosis of fistula. She was made NPO and started on IV Solu-Medrol. In doing so, her symptoms have resolved. She was given a liquid diet this morning which she tolerated. She is currently asymptomatic and desires discharge home today. Labs from this morning were reviewed. She has no leukocytosis or anemia. K 3.6. Liver panel and lipase are normal. Allergies Allergy/AdvReac Type Severity Reaction Status Date / Time adhesive Allergy Mild BANDAIDS-RED Verified 12/22/20 11:15 BLISTERS codeine Allergy Mild NAUSEA AND Verified 12/22/20 11:15 VOMITING Penicillins Allergy Unknown Unknown in Verified 12/22/20 11:15 childhood Home Medications Medication Instructions Recorded Confirmed Type vedolizumab 300 mg intravenous See Rx Instructions IV .COMPLEX 02/03/20 12/22/20 History solution sertraline 100 mg tablet 150 mg PO HS #135 tab 02/17/20 12/22/20 Rx lorazepam 0.5 mg tablet 0.5 mg PO DAILY PRN #30 tab 11/16/20 12/22/20 Rx warfarin 5 mg tablet 10 mg PO .COMPLEX #60 tab 12/17/20 12/22/20 Rx ondansetron HCl [Zofran] 4 mg PO Q6H PRN 12/22/20 12/22/20 History prednisone 10 mg PO UD 56 Days #130 tab 12/23/20 Rx Patient History Medical History Anticoagulant long-term use warfarin daily Anxiety Crohn's disease Depression Exacerbation of Crohn's disease Factor 5 Leiden mutation, heterozygous reason for warfarin Hyperlipidemia Panic disorder Surgical History H/O colonoscopy (09/2019) History of tooth extraction History of wisdom tooth extraction Hx of cholecystectomy Family History Father Heart disease Hypertension Family history of diabetes mellitus Mother Family history of reaction to anesthesia severe vomiting Family history of diabetes mellitus Family hx colonic polyps Grandmother (Paternal) Family history of diabetes mellitus Aunt Family hx colonic polyps Grandfather (Maternal) Family hx colonic polyps Social History Smoking Status: Current every day smoker Tobacco Type: Cigarettes Cigarettes Per Day: 15; Second Hand Exposure: Yes (father smoked); Hx Alcohol Use: Yes Alcohol type: wine Hx Substance Use: No Preferred Language: Moldovan Communication Ability: Effective Broadband Engineer Required: No Beliefs That Will Affect Care: None marital status: Current Living Situation: Spouse Feels Safe at Home: Yes Assistive Devices: None Review of Systems Review of Systems: All systems reviewed & are unremarkable except as noted in HPI & below Physical Exam Constitutional: WD/WN, vitals as above Eyes: EOM intact bilaterally Neck: normal appearance Respiratory: normal respiratory effort, lungs clear to auscultation Cardiovascular: Rate/Rhythm: regular rate and regular rhythm Heart Sounds: no gallop and no murmur Gastrointestinal (Abdomen): normal bowel sounds, soft, nontender, no hepatosplenomegaly Inspection/Auscultation: abdomen not distended Musculoskeletal: Extremities: no cyanosis no lower extremity edema Skin: no rashes, warm and dry Neurologic: moves all extremities Psychiatric: A+Ox3, euthymic affect Results & Data ([facility]) Vital Signs (Past 12 Hours) Vital Signs Temp Pulse Resp BP Pulse Ox 12/23/20 06:22 37.1 C 50 L 17 150/88 H 95 12/22/20 22:58 37.1 C 67 18 132/77 95 Laboratory Results Abnormal lab results 12/22/20 12/22/20 12/22/20 Range/Units 10:05 10:31 10:31 WBC 11.63 H (4.8-10.8) K/uL RBC (4.2-5.4) M/uL Hct (37-47) % MPV 10.7 H (7.4-10.4) fL Neut # (Auto) 9.23 H (1.4-6.5) K/uL [place] # (Auto) 0.75 H (0.11-0.59) K/uL Immature Gran # (Auto) 0.03 H (0.00-0.02) K/uL PT (9.0-12.0) Seconds INR (0.9-1.1) Chloride (98-107) mmol/L Creatinine (0.6-1.2) mg/dl BUN/Creatinine Ratio 20.6 H (10-20) Glucose 111 H (70-99) mg/dl Calcium (8.5-10.1) mg/dl AST 12 L (15-37) U/L Globulin 4.2 H (2.5-4.0) gm/dl Urine Appearance Cloudy A (Clear) Ur Specific [place] 1.034 H (1.000-1.030) Urine Protein Trace H (Negative) Urine Bilirubin 1+ H (Negative) U Hyaline Cast (Auto) 10-30 H (0-5) /lpf U Epithel Cells (Auto) >30 H (0-5) /lpf 12/22/20 12/23/20 12/23/20 Range/Units 10:31 07:05 07:05 WBC (4.8-10.8) K/uL RBC 4.06 L (4.2-5.4) M/uL Hct 36.7 L (37-47) % MPV (7.4-10.4) fL Neut # (Auto) 7.10 H (1.4-6.5) K/uL [place] # (Auto) (0.11-0.59) K/uL Immature Gran # (Auto) (0.00-0.02) K/uL PT 19.8 H 17.8 H (9.0-12.0) Seconds INR 2.1 H 1.8 H (0.9-1.1) Chloride (98-107) mmol/L Creatinine (0.6-1.2) mg/dl BUN/Creatinine Ratio (10-20) Glucose (70-99) mg/dl Calcium (8.5-10.1) mg/dl AST (15-37) U/L Globulin (2.5-4.0) gm/dl Urine Appearance (Clear) Ur Specific [place] (1.000-1.030) Urine Protein (Negative) Urine Bilirubin (Negative) U Hyaline Cast (Auto) (0-5) /lpf U Epithel Cells (Auto) (0-5) /lpf 12/23/20 Range/Units 07:05 WBC (4.8-10.8) K/uL RBC (4.2-5.4) M/uL Hct (37-47) % MPV (7.4-10.4) fL Neut # (Auto) (1.4-6.5) K/uL [place] # (Auto) (0.11-0.59) K/uL Immature Gran # (Auto) (0.00-0.02) K/uL PT (9.0-12.0) Seconds INR (0.9-1.1) Chloride 112 H (98-107) mmol/L Creatinine 0.59 L D (0.6-1.2) mg/dl BUN/Creatinine Ratio 21.3 H (10-20) Glucose 106 H (70-99) mg/dl Calcium 7.9 L (8.5-10.1) mg/dl AST (15-37) U/L Globulin (2.5-4.0) gm/dl Urine Appearance (Clear) Ur Specific [place] (1.000-1.030) Urine Protein (Negative) Urine Bilirubin (Negative) U Hyaline Cast (Auto) (0-5) /lpf U Epithel Cells (Auto) (0-5) /lpf PG Care Time/CCT Total # of Minutes Spent Total Time Spent with Patient: Total time spent is greater than 50% in coordination of care (as documented) at patient's floor/unit and/or counseling patient: Coding Level of Care Code 31847 Inpt Consult Level 4 Diagnoses Crohn's disease of ileum with complication K50.019
--- NOTE | 2020-12-23 12:47 | Discharge Summary ---
Date of Service December 23, 2020 Admission HPI Per Admitting Provider This is a 50-year-old female with past medical history of Crohn's ileitis and factor V deficiency that presents today complaining of abdominal pain. Patient is pleasant a good historian. Patient has longstanding history of Crohn's disease, follows up with GI regularly. Has been doing well and her last exacerbation was in June 2020. However, starting approximately 2 days ago, she started to have some mild abdom inal symptoms. This is more of a crampy pain in the lower quadrants, left over right. This became more severe the next morning and she started to have nausea with vomiting. She had some Zofran at home which she used without any relief. She was not able to take any medications nor she able to handle any liquids or diet. This morning the pain persisted, she did have a small watery bowel movement which did relieve the pain somewhat but continued to have symptoms. Patient's eventually convinced patient to come to the emergency for further evaluation. Patient tells me she is feeling much better now. She was given Zofran, morphine, and Toradol with relief. She has been taking ice chips without any worsening of her symptoms. Imaging shows ileitis along with a low-grade bowel obstruction. Patient is now being admitted for further evaluation and treatment. Principal Diagnosis Crohn's flare, ileitis Discharge Exam Constitutional WD/WN, vitals as above Neck trachea midline, no thyromegaly Respiratory normal respiratory effort, lungs clear to auscultation Cardiovascular RRR, no murmur, no edema Gastrointestinal (Abdomen) normal bowel sounds, soft, nontender, no hepatosplenomegaly Musculoskeletal no cyanosis or clubbing, extremities motor strength 5/5 Skin no rashes, warm and dry Neurologic patellar DTR's 2+ bilat, sensation intact and PERRL, EOMI, accommodation nl, no face palsy, no dysarthria Psychiatric A+Ox3, euthymic affect Lymphatic no cervical or axillary lymphadenopathy Discharge Data Allergies Allergy/AdvReac Type Severity Reaction Status Date / Time adhesive Allergy Mild BANDAIDS-RED Verified 12/22/20 11:15 BLISTERS codeine Allergy Mild NAUSEA AND Verified 12/22/20 11:15 VOMITING Penicillins Allergy Unknown Unknown in Verified 12/22/20 11:15 childhood Consultations 12/22/20 12:18 ED Decision to Admit Stat 12/22/20 14:20 Consult Gastroenterology Routine Ordered Studies 12/22/20 10:05 CT abd pelvis IV con only Stat Hospital Course (1) Crohn's disease of ileum with complication: Patient has acute Crohn's flare with ileitis and low-grade small bowel obstruction. Symptomatically improved. had a BM today, tolerating diet discussed with GI, she can be discharged home will treat with Prednisone taper, 40mg daily, decrease by 5mg every 7 days until complete Patient is on vedolizumab infusions, had been doing well with these, follow up on 01/08 with GI for next infusion Patient follows with Dr. 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 INR is therapeutic (3) Anxiety: Patient is on lorazepam and Zoloft, mood stable Total Time Total Time Spent Total Time Spent (In Minutes): 31 Total Time Includes: Examination of the Patient, Discharge Planning, Medication Reconciliation and Communication With Other Providers Discharge Plan Discharge Items Patient Disposition: Home - Self-Care Reason For Visit: [place] Discharge Diagnosis: Crohn's flare, ileitis Condition on Discharge: Good Goals: Prednisone taper follow up with Gastroenterology as scheduled Activity: Resume your previous activity Driving/Machine Use: No limitations Weightbearing: Full weightbearing Non-emergency contact: Primary Care Provider Call non-emergency contact if: you have any medication questions Follow-up/Referrals: Steve Chang DO [Physician] - (2 weeks) Zeke Miller MD [Primary Care Provider] - (one week) Diet: Regular Addtl Attending Provider Instructions: Medications: - PREDNISONE: complete prolonged taper, start at 40mg daily, decrease by 5mg every 7 days until done thus, take 40mg daily x 7 days, 35mg daily x 7 days, 30mg daily x 7 days etc... Crohn's flare, ileitis, no signs of obstruction, moving bowels, tolerating diet treat with Prednisone taper follow up with [facility] in two weeks, follow up for vedolizumab on 01/08/21 Pending Studies at Discharge: No Stand-Alone Forms: [employer], Smoking Cessation Medications and DC Order Prescriptions: New prednisone 10 mg tablet 10 mg PO UD 56 Days Qty: 130 RF: 0 Continued warfarin 5 mg tablet 10 mg PO .COMPLEX Qty: 60 RF: 5 lorazepam 0.5 mg tablet 0.5 mg PO DAILY PRN (Reason: Panic Attack(S)) Qty: 30 RF: 0 sertraline [Zoloft] 100 mg tablet 150 mg PO HS Qty: 135 RF: 3 Entyvio 300 mg recon soln See Rx Instructions IV .COMPLEX RF: 0 ondansetron HCl [Zofran] 4 mg Tablet 4 mg PO Q6H PRN (Reason: Nausea) RF: 0 Discharge Orders: Discharge Order (Routine); Ordered 12/23/20 Ordered By: Sina Farrar Admission Data Admit Date/Time: 12/22/20 12:48 Attending Provider: Sina Farrar Admit Provider: Gato Gold Primary Care Provider: Zeke Miller Other Providers: Gato Gold ; Steve Chang Other Interventions: Discharge Summary Assessment (RN) Last Done: 12/23/20 12:42 Coding Level of Care Code D/C Day Management >30 mins Diagnoses Crohn's disease of ileum with complication K50.019 Factor V deficiency D68.2 Anxiety F41.9
== END 2020-12-23 13:51 | disposition home or self-care (01) | DRG 386 ==
LOC: ED 09:38 → 3W 12:48 → SUATTDRO 12:48 → 3W 13:50